=== PATIENT | male | born 1965 | race Caucasian/White ===

== ENCOUNTER → 2017-06-15 | Outpatient (CLI) | payer OTHER ==
[2017-06-15 15:44] LABS: Anion Gap 10 mmol/L; Blood Urea Nitrogen 13 mg/dL (9-20); Calcium 9.6 mg/dL (8.4-10.2); Carbon Dioxide 32 mmol/L (22-30); Chloride 96 mmol/L (98-107); Glucose 219 mg/dL (74-99); Potassium 4.5 mmol/L (3.5-5.1); Sodium 138 mmol/L (137-145)
== END | disposition home or self-care (01) ==
LOC: LABWHC1 14:34
PROVIDERS: ATTEND Anesthesiology
DX: Z01.818 Encounter for other preprocedural examination (principal); Z01.812 Encounter for preprocedural laboratory examination
CPT/HCPCS: 36415; 80048; 93005

== ENCOUNTER → 2017-06-15 | Outpatient (CLI) | payer OTHER ==
[2017-06-15 14:01] LABS: Blood Urea Nitrogen 14 mg/dL (9-20)
--- NOTE | 2017-06-15 15:06 | XR ---
EXAMINATION TYPE: XR chest 2V DATE OF EXAM: 06/15/2017 COMPARISON: 10/22/2009 INDICATION: Vocal cord lesion TECHNIQUE: Frontal and lateral views of the chest are obtained. FINDINGS: The heart size is normal. The pulmonary vasculature is normal. The lungs are clear. Some mild hyperinflation may be present. IMPRESSION: 1. No acute pulmonary process.
--- NOTE | 2017-06-15 17:11 | CT ---
EXAMINATION TYPE: CT soft tissue neck w con DATE OF EXAM: 06/15/2017 COMPARISON: NONE HISTORY: Hoarseness for [address] DLP: 1610.4 mGycm CONTRAST: Patient injected with 100 mL of Omnipaque 300. TECHNIQUE: Axial images at 3 mm thick sections. Reconstructed images in the coronal plane and sagitt al plane are reviewed. FINDINGS: Limited CT sections are obtained the lung apices. The lung apices appear clear. The asce nding thoracic aorta at the level the main pulmonary artery is 4.3 cm which is prominent. The main pu lmonary artery the bifurcation is 3.8 cm. And may be a subcarinal lymph node present measuring 1.1 cm . Consider follow-up CT chest for additional evaluation. Additional smaller superior mediastinal and paratracheal lymph nodes are present. CT neck: The torus tubarius and fossa of Rosenmuller are normal. Reservoir Engineering Advisor spaces are normal. Para nasal sinuses and mastoid air cells are clear. Parotid glands appear normal and symmetrical. Submandibular glands, are normal. Parapharyngeal spac es are normal. No suspicious adenopathy is evident. The hypopharynx appears within normal limits. Vocal cord level appears close time of the examination. Subglottic airway is unremarkable. Thyroid as visualized is normal. Degenerative changes are within the thoracic spine. IMPRESSIONS: 1. No suspicious acute changes within the soft tissue neck. 2. There is a probable enlarged lymph node at the subcarinal region as well as additional smaller lym phadenopathy. CT chest could be performed for additional evaluation. 3. Aneurysmal prominence of the ascending thoracic aorta measuring 4.3 cm.
== END | disposition home or self-care (01) ==
LOC: RADCTMAIN 13:06
PROVIDERS: ATTEND Otolaryngology
DX: Z01.818 Encounter for other preprocedural examination (principal)
CPT/HCPCS: 71046; 70491; 36415; Q9967; 80048; 93005

== ENCOUNTER → 2017-08-09 | Outpatient (CLI) | payer OTHER ==
[2017-08-09 16:18] LABS: Blood Urea Nitrogen 13 mg/dL (9-20)
--- NOTE | 2017-08-09 17:54 | CT ---
EXAMINATION TYPE: CT neck chest w con DATE OF EXAM: 08/09/2017 5:16 PM COMPARISON: Neck CT scan 06/15/2017 HISTORY: Malignant neoplasm of supraglavis CT DLP: 3227.0 mGycm Automated exposure control for dose reduction was used. CONTRAST: CT scan of the neck is performed following with IV Contrast, patient injected with 100 mL of Isovue 3 00. Axial images are obtained, coronal and sagittal reformatted images are reviewed. FINDINGS: The lungs are clear of consolidation. There is no pleural effusion. There is no pericardial effusion. There is a 13 mm subcarinal lymph node. There are paratracheal lymph nodes that measure up to 1 cm. There is no evidence of aortic aneurysm or dissection. There is spurring in the thoracic spine. I see no bony destructive process. There is significant hypertrophy of the parotid glands. I see no parotid mass. Submandibular salivary glands are symmetric. There are anterior triangle cervical lymph nodes measure up to 1 cm. Subglotti c trachea appears normal. The epiglottis appears normal. Thyroid gland is symmetric. There is no evidence of a pharyngeal mass. There is fairly normal aeration of the paranasal sinuses. There is no evidence of orbital mass. I see no pathologic enhancement. There are some calcifications in the mild bilaterally. These are in uncertain location. It is possibl e that these are calcifications in the parotid duct. The cervical spine is intact. IMPRESSION: Symmetric moderate hypertrophy of the parotid glands. Oral pharyngeal calcification coul d relate to parotid duct calcification. These appear unchanged compared to last exam. No evidence of a neck mass. Nonspecific mediastinal lymph nodes appear unchanged. No pulmonary mass.
== END | disposition home or self-care (01) ==
LOC: RADCTMAIN 15:38
PROVIDERS: ATTEND Radiology Radiation Oncology
DX: C32.1 Malignant neoplasm of supraglottis (principal); K11.1 Hypertrophy of salivary gland; J39.2 Other diseases of pharynx; Z88.0 Allergy status to penicillin
CPT/HCPCS: 82565; 84520; 70491; 71260; 36415; Q9967

== ENCOUNTER 2018-04-01 05:51 | Day surgery (SDC) | payer OTHER ==
[2018-03-27 12:54] VITALS: BMI 47.7
[~2018-04-01 05:51] MED LIST: CLINDAMYCIN 900 MG in DEXTROSE 5% IN WATER 50 ML IVPB ONE; DEXAMETHASONE SOD PHOSPHATE 10 MG/ML 1 ML VIAL IV ONE; HEPARIN SODIUM,PORCINE 5,000 UNIT/ML 1 ML VIAL SQ ONE; LACTATED RINGERS 1,000 ML IV SCH; LIDOCAINE 1% 20 ML VIAL (10MG/ML) FOR IV START INTRADERMA PRN; MIDAZOLAM 2 MG/2 ML VIAL IV PRN; ONDANSETRON 4 MG/2 ML VIAL IVP ONE; fentaNYL (PF) 50 MCG/ML 2 ML AMP IV PRN
[2018-04-01] MEDS ORDERED: INDOCYANINE GREEN 25 MG VIAL IV STA (06:00)
--- NOTE | 2018-04-01 06:40 | P.GSHP ---
History of Present Illness H&P Date: 04/01/18 CHIEF COMPLAINT: Cholecystitis HISTORY OF PRESENT ILLNESS: The patient is a 52-year-old male who presents with history of epigastric including right upper quadrant abdominal pain. He underwent diagnostic studies for the gallbladder. Separately his clinical picture was consistent with cholecystitis. Now he presents for surgical intervention. PAST MEDICAL HISTORY: Please see list PAST SURGICAL HISTORY: Please see list MEDICATIONS: Please see list ALLERGIES: Denies. SOCIAL HISTORY: No illicit drug use or recent tobacco use FAMILY HISTORY: Pertinent for gallbladder disease REVIEW OF ORGAN SYSTEMS: CONSTITUTIONAL: No reports of fevers or chills. HEENT: Denies any troubles with the vision or hearing. ENDOCRINE: Has reports of hypothyroidism. Has diabetes. RESPIRATORY: No recent pneumonias. CARDIOVASCULAR: Denies chest pain or palpitations GI: No blood in stools or constipation. MUSCULOSKELETAL: Has occasional joint pain including back pain. NEURO: No seizure disorders or headaches. No recent stroke. PSYCH: No depression or suicidal ideation. HEMATOLOGIC: No personal or family history of DVTs or pulmonary emboli. PHYSICAL EXAM: VITAL SIGNS: Afebrile vital signs stable GENERAL: Well-developed pleasant male in no acute distress. HEENT: No scleral icterus. Extraocular movements grossly intact. Moist buccal mucosa. NECK: Supple without lymphadenopathy. CHEST: Unlabored respirations. Equal bilateral excursions. CARDIOVASCULAR: Regular rate regular rhythm rhythm. Distal 2+ pulses. ABDOMEN: Soft, nondistended. Tender along the epigastrium and right upper quadrant. MUSCULOSKELETAL: No clubbing, cyanosis, or edema. NEURO : No focal or lateralizing signs. Cranial nerves II-12 within normal limits. PSYCH: Alert and oriented to person, place and time. SKIN: Well perfused. Good skin turgor. ASSESSMENT: 1. Epigastric and right upper quadrant abdominal pain 2. Chronic cholecystitis 3. Symptomatic gallstones. PLAN: 1. Will need a robotic cholecystectomy possible open. Benefits and risks were described. 2. Heparin for DVT prophylaxis 5000 units. 3. Antibiotic prophylaxis. 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 device, elevated uric acid level, hypothyroid, occasional back pain, arthritis bilateral hands/L shoulder, L/R leg lymphedema but worse in R leg, R ankle venous stasis ulcer-healed at this time, History of Any Multi-Drug Resistant Organisms: MRSA Date of last positivie culture/infection: 06/22/14 MDRO Source:: RT LEG Past Surgical History: No Surgical Hx Reported Additional Past Surgical History / Comment(s): Vocal cord bx, debridements R ankle ulcer Past Anesthesia/Blood Transfusion Reactions: No Reported Reaction Smoking Status: Former smoker - Past Family History Mother Family Medical History: No Reported History Additional Family Medical History / Comment(s): Mother is healthy and is 76yrs old. Brother(s) Additional Family Medical History / Comment(s): Patient is a total of 5 siblings and one brother from liver cirrhosis from alcoholism. Patient has one son with no major medical problems. Father Sister(s) Family Medical History: Cancer Additional Family Medical History / Comment(s): Father at 57yrs from lung cancer. He was a smoker. Medications and Allergies Home Medications Medication Instructions Recorded Confirmed Type Allopurinol [Zyloprim] 100 mg PO PC-SUPPER 09/01/13 03/27/18 History Levothyroxine Sodium [Synthroid] 25 mcg PO PC-SUPPER 09/01/13 03/27/18 History metFORMIN HCL [Glucophage] 500 mg PO PC-SUPPER 09/01/13 03/27/18 History Hydrochlorothiazide [Hydrodiuril] 25 mg PO PC-SUPPER 10/22/13 03/27/18 History amLODIPine BESYLATE/BENAZEPRIL 1 cap PO PC-SUPPER 10/22/13 03/27/18 History [Lotrel 5-10 mg Capsule] Furosemide [Lasix] 20 mg PO PC-SUPPER 03/07/18 03/27/18 History Allergies Allergy/AdvReac Type Severity Reaction Status Date / Time penicillin G Allergy Severe Anaphylaxis Verified 04/01/18 06:15
[2018-04-01 06:47] LABS: Glucose,Whole Blood 100 mg/dL (75-99)
[2018-04-01] MEDS ORDERED: DEXAMETHASONE SOD PHOSPHATE 10 MG/ML 1 ML VIAL IV ONE (07:00)
[2018-04-01] MEDS ORDERED: ONDANSETRON 4 MG/2 ML VIAL IVP ONE (07:00)
[2018-04-01 07:13] LABS: Anion Gap 8 mmol/L; Blood Urea Nitrogen 12 mg/dL (9-20); Calcium 9.2 mg/dL (8.4-10.2); Carbon Dioxide 31 mmol/L (22-30); Chloride 100 mmol/L (98-107); Glucose 92 mg/dL (74-99); Sodium 139 mmol/L (137-145); Total Protein 7.4 g/dL (6.3-8.2)
[2018-04-01 07:21] LABS: Potassium 4.8 mmol/L (3.5-5.1)
[2018-04-01 07:22] LABS: ALT 35 U/L (21-72); AST 37 U/L (17-59); Alkaline Phosphatase 58 U/L (38-126)
[2018-04-01] MEDS ORDERED: GLYCOPYRROLATE 0.2 MG/ML 2 ML VIAL ONE (07:37)
[2018-04-01] MEDS ORDERED: NEOSTIGMINE 1 MG/ML 10 ML VIAL ONE (07:37)
[2018-04-01] MEDS ORDERED: MIDAZOLAM 2 MG/2 ML VIAL ONE (07:37)
[2018-04-01] MEDS ORDERED: fentaNYL (PF) 50 MCG/ML 2 ML AMP ONE (07:37)
[2018-04-01] MEDS ORDERED: BUPIVACAIN-EPI 0.25%-1:200,000 30 ML VIAL SQ ONE ×2 (07:37→08:08)
[2018-04-01] MEDS ORDERED: PROPOFOL 10 MG/ML 20 ML VIAL IV ONE (07:37)
[2018-04-01] MEDS ORDERED: INDOCYANINE GREEN 25 MG VIAL IV ONE (07:37)
[2018-04-01] MEDS ORDERED: LIDOCAINE 1% INJ 10MG/ML (20 ML MDV) ONE (07:37)
[2018-04-01] MEDS ORDERED: ROCURONIUM BROMIDE 10 MG/ML 10 ML VIAL IV ONE (07:37)
[2018-04-01] MEDS ORDERED: SUCCINYLCHOLINE CHLORIDE 100 MG/5 ML SYR IV ONE (07:37)
[2018-04-01] MEDS ORDERED: ePHEDrine SULFATE/0.9% NACL/PF 50 MG/5 ML SYRINGE IV ONE (07:37)
[2018-04-01 09:05] VITALS: TEMP 97
--- NOTE | 2018-04-01 09:09 | P.OP ---
Date of Procedure: 04/01/18 Description of Procedure: SURGEON: RICHA AGUILAR MD PREOPERATIVE DIAGNOSES: 1. Symptomatic gallstones 2. Chronic cholecystitis 3. History of congestive heart failure 4. Diabetes type 2, with neuropathy 5. Hypothyroidism 6. Gout arthritis 7. Bilateral venous stasis disease 8. Hypertensive heart disease with cardiomyopathy 9. Hypothyroidism 10. Morbid obesity discussed calories, BMI 48 11. History of gallstone-induced pancreatitis with elevated transaminase POSTOPERATIVE DIAGNOSES: 1. Symptomatic gallstones 2. Chronic cholecystitis 3. History of congestive heart failure 4. Diabetes type 2, with neuropathy 5. Hypothyroidism 6. Gout arthritis 7. Bilateral venous stasis disease 8. Hypertensive heart disease with cardiomyopathy 9. Hypothyroidism 10. Morbid obesity discussed calories, BMI 48 11. History of gallstone-induced pancreatitis with elevated transaminase 12. Severe hepatomegaly due to fatty liver disease OPERATION: Robotic-assisted da Adis Xi laparoscopic cholecystectomy, multiport with FIREFLY ESTIMATED BLOOD LOSS: 10 mL. SPECIMENS REMOVED: Gallbladder. COMPLICATIONS: None. OPERATIVE FINDINGS: 1. Chronic cholecystitis 2. Severe hepatomegaly adding complexity to case INDICATIONS: The patient is a 52-year-old male who presents with history of gallstone-induced pancreatitis and elevated transaminase. Surgical intervention with a laparoscopic cholecystectomy was described at length including injury to the biliary tree, bleeding, infection, need for further surgery. Informed consent was obtained. Robotic assisted laparoscopic approach was described. Benefits and risks of the procedure including but not limited to bleeding, infection, injury to the biliary tree was described. Informed consent was obtained. DESCRIPTION OF PROCEDURE: Patient was brought to the operating room, placed in supine position. After general induction, the abdomen had been prepped and draped in standard sterile fashion. The robotic da Adis XI system was primed. After a timeout protocol was performed, the patient had been prepped and draped in standard sterile fashion. The patient was injected with indocyanine green. A 5 mm 0 degrees laparoscopic trocar entry was performed along the left upper quadrant. The abdomen insufflated to 15 mmHg pressure which he tolerated well. Diagnostic laparoscopy demonstrated no injury to bowel viscera or mesentery. The liver surface was remarkable for severe hepatomegaly due to fatty liver disease. Next, two 8 mm robotic ports were placed along the right upper abdomen. The camera 8-mm port was maintained along the epigastrium. Another 8 mm port was placed along the left upper abdominal wall after exchanging the 5 mm port. Please note that the ports were placed at least 10 to 15 cm away from the target anatomy of the gallbladder. The robot was docked along the left lateral abdomen. The patient was repositioned in reverse Trendelenburg position. Using a grasper for arm 3, a grasper for arm 4, including hook cautery for arm 1 , the robotic system was docked and primed as described. Instruments were interchanged by the res habilitation assistant including hook cautery, Bovie cautery and clip appliers. I had sat at the console. Adhesions were identified along the infundibulum of the gallbladder and addressed using hook cautery. The gallbladder fundus was retracted over the dome of the liver. Initial attention was brought to the infundibulum which was gently retracted in the inferior lateral approach. Using a grasper, the cystic duct including the cystic artery was carefully skeletonized. FIREFLY was used to identify the cystic artery and cystic structures. Large PLASTIC clips were used throughout the entire case. Using a clip crm campaign manager 2 clips were placed proximally, and 1 clip was placed distally along the cystic duct and then cauterized with the cautery. Again care was taken to avoid any injury to the biliary tree as the common bile duct was clearly visualized during this portion of dissection. Next, the cystic artery was similarly clipped and cauterized. Electro-Bovie cautery was used to remove the gallbladder from the hepatic fossa. Hemostasis was checked and found to be adequate. The robot was undocked. I re-scrubbed into the case. Using a 10 mm Endo Catch bag via the left upper quadrant incision, the specimen was removed from the abdominal cavity. All pneumoperitoneum instruments were evacuated from the abdominal cavity. The incisions were reapproximated using 4-0 Monocryl in an interrupted subcuticular fashion. Fascial defects were less than 8 mm in size. Please note along the trocar sites, local anesthetic was placed as a field block prior to insertion of all instruments. Liquid glue was applied to the skin. At the end of the procedure needle, sponge, and instrument count had been verified correct by the bench technician. The patient was transferred to postanesthesia care unit in stable condition. Console time 18 minutes Plan - Discharge Summary New Discharge Prescriptions: New HYDROcodone/APAP 5-325MG [[place] 5-325] 1 tab PO Q4HR PRN 3 Days #18 tab PRN Reason: Pain No Action metFORMIN HCL [Glucophage] 500 mg PO PC-SUPPER Levothyroxine Sodium [Synthroid] 25 mcg PO PC-SUPPER Allopurinol [Zyloprim] 100 mg PO PC-SUPPER amLODIPine BESYLATE/BENAZEPRIL [Lotrel 5-10 mg Capsule] 1 cap PO PC-SUPPER Hydrochlorothiazide [Hydrodiuril] 25 mg PO PC-SUPPER Furosemide [Lasix] 20 mg PO PC-SUPPER Discharge Medication List Allopurinol [Zyloprim] 100 mg PO PC-SUPPER 09/01/13 [History] Levothyroxine Sodium [Synthroid] 25 mcg PO PC-SUPPER 09/01/13 [History] metFORMIN HCL [Glucophage] 500 mg PO PC-SUPPER 09/01/13 [History] Hydrochlorothiazide [Hydrodiuril] 25 mg PO PC-SUPPER 10/22/13 [History] amLODIPine BESYLATE/BENAZEPRIL [Lotrel 5-10 mg Capsule] 1 cap PO PC-SUPPER 10/22 [History] Furosemide [Lasix] 20 mg PO PC-SUPPER 03/07/18 [History] HYDROcodone/APAP 5-325MG [[place] 5-325] 1 tab PO Q4HR PRN 3 Days #18 tab [Rx] Follow up Appointment(s)/Referral(s): Richa Aguilar MD [STAFF PHYSICIAN] - 04/09/18 Patient Instructions/Handouts: Laparoscopic Cholecystectomy (DC) Activity/Diet/Wound Care/Special Instructions: Low-fat diet for 2 days. No lifting over 4 pounds one week. May shower. No bath tub soaks. Discharge Disposition: HOME SELF-CARE
[2018-04-01 09:10] LABS: Glucose,Whole Blood 152 mg/dL (75-99)
[2018-04-01 10:08] VITALS: BP 113/61; PULSE 93; RESP 17
== END 2018-04-01 10:15 | disposition home or self-care (01) ==
LOC: OR 05:51
PROVIDERS: ATTEND Surgery Plastic and Reconstructive Surgery
DX: K80.10 Calculus of gallbladder with chronic cholecystitis without obstruction (principal); K76.0 Fatty (change of) liver, not elsewhere classified; R16.0 Hepatomegaly, not elsewhere classified; I11.0 Hypertensive heart disease with heart failure; I50.9 Heart failure, unspecified; I43 Cardiomyopathy in diseases classified elsewhere; E11.40 Type 2 diabetes mellitus with diabetic neuropathy, unspecified; E03.9 Hypothyroidism, unspecified; E66.01 Morbid (severe) obesity due to excess calories; M10.9 Gout, unspecified; Z79.84 Long term (current) use of oral hypoglycemic drugs; Z79.890 Hormone replacement therapy; Z79.899 Other long term (current) drug therapy; Z88.0 Allergy status to penicillin; Z68.42 Body mass index [BMI] 45.0-49.9, adult; Z87.891 Personal history of nicotine dependence
CPT/HCPCS: 88304; 80053; 47562; J2250; J1644; J1100; J2710; J2405; J2001; J3010; J0330; J2704

== ENCOUNTER → 2018-04-05 | Outpatient (CLI) | payer OTHER ==
--- NOTE | 2018-04-05 17:37 | CT ---
EXAMINATION TYPE: CT soft tissue neck wo/w con DATE OF EXAM: 04/05/2018 COMPARISON: 08/09/2017 HISTORY: Malignant neoplasm supraglottis CT DLP: 1547.1 mGycm CONTRAST: Patient injected with 50ml mL of Isovue M300. TECHNIQUE: Axial images at 3 mm thick sections. Reconstructed images in the coronal plane and sagitt al plane are reviewed. FINDINGS: Limited CT sections are obtained the lung apices. The lung apices appear clear. CT neck: The torus tubarius and fossa of Rosenmuller are normal. Spring Assembler Supervisor spaces are normal. Para nasal sinuses and mastoid air cells are clear. Parotid glands appear normal and symmetrical. Submandibular glands appear somewhat atrophic. Paraph aryngeal spaces are normal. No suspicious adenopathy is evident. The hypopharynx appears within normal limits. Vocal cord level appear symmetrical. Thyroid as visualized is normal. Osseous structures are normal. IMPRESSIONS: 1. Appearance of the supraglottic region appears similar to prior study. Suspicious recurrent or prog ressing mass is not identified radiographically.
--- NOTE | 2018-04-05 17:40 | CT ---
EXAMINATION TYPE: CT chest wo/w con DATE OF EXAM: 04/05/2018 COMPARISON: 08/09/2017 HISTORY: Malignant neoplasm supraglottis CT DLP: 1811.4 mGycm, Automated exposure control for dose reduction was used. CONTRAST: Performed injected with 75ml mL of Isovue M300. TECHNIQUE: Axial images were obtained at 5 mm thick sections. Reconstructed images are reviewed on [email or web address] computer in the coronal plane. FINDINGS: Portion of the thyroid visualized is normal. Vocal cord level is symmetrical. Subglottic ai rway has an increased AP diameter in relation to the lateral dimension. This is stable. Consider sabe r-sheath trachea within the differential. No suspicious lung nodules or focal infiltrates are present. Subcarinal lymph node measures 1.1 cm which is diminished from prior study. Couple of shotty lymph n odes are in the pretracheal space and lateral aortopulmonic window region. These are diminished in si ze from comparison. The ascending aorta diameter at the level of the main pulmonary artery is 4.1 cm. The main pulmonary artery diameter at the bifurcation is 3.[address] sections are obtained through the upper abdomen. Abdomen is essentially unremarkable. IMPRESSIONS: 1. No suspicious changes to suggest metastatic disease. 2. Consider saber-sheath trachea. 3. Ascending thoracic aortic aneurysm of 4.1 cm.
== END | disposition home or self-care (01) ==
LOC: RADCTMAIN 12:38
PROVIDERS: ATTEND Radiology Radiation Oncology
DX: K22.70 Barrett's esophagus without dysplasia (principal); C32.1 Malignant neoplasm of supraglottis
CPT/HCPCS: 70492; 71270; Q9967

== ENCOUNTER 2018-10-09 06:28 | Day surgery (SDC) | payer OTHER ==
[2018-10-08 09:15] VITALS: BMI 47.1
[~2018-10-09 06:28] MED LIST changes: -CLINDAMYCIN 900 MG in DEXTROSE 5% IN WATER 50 ML IVPB ONE; -DEXAMETHASONE SOD PHOSPHATE 10 MG/ML 1 ML VIAL IV ONE; -HEPARIN SODIUM,PORCINE 5,000 UNIT/ML 1 ML VIAL SQ ONE; -MIDAZOLAM 2 MG/2 ML VIAL IV PRN; -ONDANSETRON 4 MG/2 ML VIAL IVP ONE; -fentaNYL (PF) 50 MCG/ML 2 ML AMP IV PRN
[2018-10-09 07:23] VITALS: TEMP 98.3
[2018-10-09 07:26] LABS: Glucose,Whole Blood 97 mg/dL (75-99)
[2018-10-09] MEDS ORDERED: LIDOCAINE 1% INJ 10MG/ML (20 ML MDV) ONE (07:34)
[2018-10-09] MEDS ORDERED: PROPOFOL 10 MG/ML 20 ML VIAL IV ONE (07:34)
--- NOTE | 2018-10-09 07:35 | P.GSHP ---
History of Present Illness H&P Date: 10/09/18 CHIEF COMPLAINT: Colon screen HISTORY OF PRESENT ILLNESS: The patient is a 52-year-old male who presents for colon screen. Lower endoscopy was offered for further evaluation and management. PAST MEDICAL HISTORY: Please see list. PAST SURGICAL HISTORY: Please see list. MEDICATIONS: Please see list. ALLERGIES: Please see list. SOCIAL HISTORY: No illicit drug use FAMILY HISTORY: No reports of Crohn disease or ulcerative colitis. REVIEW OF ORGAN SYSTEMS: CONSTITUTIONAL: No reports of fevers or chills. PHYSICAL EXAM: VITAL SIGNS: Stable GENERAL: Well-developed pleasant in no acute distress. HEENT: No scleral icterus. Extraocular movements grossly intact. Moist buccal mucosa. NECK: Supple without lymphadenopathy. CHEST: Unlabored respirations. Equal bilateral excursions. CARDIOVASCULAR: Regular rate and rhythm. Distal 2+ pulses. ABDOMEN: Soft, nontender, nondistended. MUSCULOSKELETAL: No clubbing, cyanosis, or edema. ASSESSMENT: 1. Colon screen. PLAN: 1. Recommend proceeding with a lower endoscopy Past Medical History Past Medical History: Cancer, Diabetes Mellitus, Hypertension, Musculoskeletal Disorder, Osteoarthritis (OA), Sleep Apnea/CPAP/BIPAP, Thyroid Disorder, Vascular Disorder Additional Past Medical History / Comment(s): Vocal cord cancer dx. 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, elevated uric acid level, occasional back pain, arthritis bilateral hands/L shoulder, L/R leg lymphedema but worse in R leg History of Any Multi-Drug Resistant Organisms: MRSA Date of last positivie culture/infection: 06/22/14 MDRO Source:: RT LEG Past Surgical History: Cholecystectomy Additional Past Surgical History / Comment(s): Vocal cord bx Past Anesthesia/Blood Transfusion Reactions: No Reported Reaction Smoking Status: Former smoker - Past Family History Mother Family Medical History: No Reported History Additional Family Medical History / Comment(s): Mother is healthy and is 76yrs old. Brother(s) Additional Family Medical History / Comment(s): Patient is a total of 5 siblings and one brother from liver cirrhosis from alcoholism. Patient has one son with no major medical problems. Father Sister(s) Family Medical History: Cancer Additional Family Medical History / Comment(s): Father at 57yrs from lung cancer. He was a smoker. Medications and Allergies Home Medications Medication Instructions Recorded Confirmed Type Allopurinol [Zyloprim] 100 mg PO PC-SUPPER 09/01/13 10/09/18 History Levothyroxine Sodium [Synthroid] 25 mcg PO PC-SUPPER 09/01/13 10/09/18 History metFORMIN HCL [Glucophage] 500 mg PO PC-SUPPER 09/01/13 10/09/18 History Hydrochlorothiazide [Hydrodiuril] 25 mg PO PC-SUPPER 10/22/13 10/09/18 History amLODIPine BESYLATE/BENAZEPRIL 1 cap PO PC-SUPPER 10/22/13 10/09/18 History [Lotrel 5-10 MG] Furosemide [Lasix] 20 mg PO PC-SUPPER 03/07/18 10/09/18 History Allergies Allergy/AdvReac Type Severity Reaction Status Date / Time penicillin G Allergy Severe Anaphylaxis Verified 10/08/18 09:09 Surgical - Exam Vital Signs Temp Pulse Resp BP Pulse Ox 98.3 F 78 20 128/59 96 10/09/18 07:14 10/09/18 07:14 10/09/18 07:14 10/09/18 07:14 10/09/18 07:14
--- NOTE | 2018-10-09 07:55 | P.PCN ---
Date of Procedure: 10/09/18 Description of Procedure: PREOPERATIVE DIAGNOSIS: Colonoscopy screening, first POSTOPERATIVE DIAGNOSIS: Colonoscopy screening, first Multiple tubular adenomas throughout the colon. OPERATION: Colonoscopy to the ileocecal valve and appendiceal orifice. Colonoscopy with multiple cold forceps biopsies. SURGEON: Richa Aguilar MD. ANESTHESIA: MAC. INDICATIONS: The patient is a 52-year-old male who presents for his first colonoscopy screening. Benefits and risks were described and informed consent was obtained. DESCRIPTION OF PROCEDURE: The patient had undergone Gatorade, MiraLAX and Dulcolax prep. He had been brought into the operating room and laid in the left lateral decubitus position. After adequate intravenous sedation, the rectum was examined with 2% lidocaine jelly. No external hemorrhoids were encountered. The rectal tone was within normal limits. No lesions were palpated in the rectal vault. An Olympus colonoscope was advanced until the ileocecal valve and appendiceal orifice were clearly viewed. The prep was fair with visualization of the mucosal folds. The scope was removed with visualization of each mucosal fold. No scattered diverticulosis was encountered. Multiple colonic polyps were found and cold forcep biopsy. No evidence of focal colitis was found. Retroflexion of the scope demonstrated no internal hemorrhoids without active bleeding or inflammation. The colon was desufflated. The patient had tolerated the procedure well. Withdrawal time was over 6 minutes. FINDINGS: Aronchick preparation quality scale 2 (1-5) No internal hemorrhoids No external hemorrhoids No arteriovenous malformations No scattered diverticulosis Removal of 3 polyps: - Cold forceps biopsy at 30 cm from the anal verge, 4 mm polyp, descending colon - Cold forceps biopsy at 20 cm from the anal verge, 5 mm polyp, sigmoid colon - Cold forceps biopsy at 15 cm from the anal verge, 4 mm polyp, sigmoid colon No focal colitis. RECOMMENDATIONS: Given severity of tubular adenomas, recommend repeat colonoscopy 3 year, 2021 Plan - Discharge Summary Discharge Rx Participant: Yes New Discharge Prescriptions: No Action metFORMIN HCL [Glucophage] 500 mg PO PC-SUPPER Levothyroxine Sodium [Synthroid] 25 mcg PO PC-SUPPER Allopurinol [Zyloprim] 100 mg PO PC-SUPPER amLODIPine BESYLATE/BENAZEPRIL [Lotrel 5-10 MG] 1 cap PO PC-SUPPER Hydrochlorothiazide [Hydrodiuril] 25 mg PO PC-SUPPER Furosemide [Lasix] 20 mg PO PC-SUPPER Discharge Medication List Allopurinol [Zyloprim] 100 mg PO PC-SUPPER 09/01/13 [History] Levothyroxine Sodium [Synthroid] 25 mcg PO PC-SUPPER 09/01/13 [History] metFORMIN HCL [Glucophage] 500 mg PO PC-SUPPER 09/01/13 [History] Hydrochlorothiazide [Hydrodiuril] 25 mg PO PC-SUPPER 10/22/13 [History] amLODIPine BESYLATE/BENAZEPRIL [Lotrel 5-10 MG] 1 cap PO PC-SUPPER 10/22/13 [History] Furosemide [Lasix] 20 mg PO PC-SUPPER 03/07/18 [History] Follow up Appointment(s)/Referral(s): Richa Aguilar MD [STAFF PHYSICIAN] - 10/15/18 Patient Instructions/Handouts: Colorectal Polyps (DC) Activity/Diet/Wound Care/Special Instructions: Repeat colonoscopy in 3 years, 2021 Discharge Disposition: HOME SELF-CARE
[2018-10-09 08:00] VITALS: BP 107/71; PULSE 79; RESP 18
== END 2018-10-09 08:25 | disposition home or self-care (01) ==
LOC: ORWHC2ENDO 06:28
PROVIDERS: ATTEND Surgery Plastic and Reconstructive Surgery
DX: Z12.11 Encounter for screening for malignant neoplasm of colon (principal); K63.5 Polyp of colon; I10 Essential (primary) hypertension; E11.9 Type 2 diabetes mellitus without complications; E07.9 Disorder of thyroid, unspecified; E79.0 Hyperuricemia without signs of inflammatory arthritis and tophaceous disease; M19.042 Primary osteoarthritis, left hand; M19.041 Primary osteoarthritis, right hand; M19.012 Primary osteoarthritis, left shoulder; I89.0 Lymphedema, not elsewhere classified; G47.33 Obstructive sleep apnea (adult) (pediatric); Z79.890 Hormone replacement therapy; Z79.84 Long term (current) use of oral hypoglycemic drugs; Z79.899 Other long term (current) drug therapy; Z88.0 Allergy status to penicillin; Z90.49 Acquired absence of other specified parts of digestive tract; Z85.21 Personal history of malignant neoplasm of larynx; Z92.3 Personal history of irradiation; Z86.14 Personal history of Methicillin resistant Staphylococcus aureus infection; Z87.891 Personal history of nicotine dependence; Z80.1 Family history of malignant neoplasm of trachea, bronchus and lung; E66.01 Morbid (severe) obesity due to excess calories; Z68.42 Body mass index [BMI] 45.0-49.9, adult; M54.9 Dorsalgia, unspecified
CPT/HCPCS: 45380; 88305; J2001; J2704

== ENCOUNTER → 2018-10-25 | Outpatient (CLI) | payer OTHER ==
--- NOTE | 2018-10-25 14:15 | XR ---
EXAMINATION TYPE: XR cervical spine comp DATE OF EXAM: 10/25/2018 CLINICAL HISTORY: pain COMPARISON: NONE TECHNIQUE: Frontal, lateral, oblique, swimmers, and open mouth view of the cervical spine are obtaine d. FINDINGS: The cervical spine is visualized in its entirety from C1 thru the top of T1 level. It is s atisfactory in alignment without evidence of acute fracture or dislocation. The pre-vertebral soft t issue appears within normal limits. Disc spaces are well preserved. The C1-C2 articulation is unremar kable on the open mouth view. The oblique images are within normal limits. IMPRESSION: No acute fracture or dislocation is seen in the cervical spine.ICD 10 NO FRACTURE, INITI AL EVALUATION
== END ==
LOC: RADXRMAIN 12:32
PROVIDERS: ATTEND Family Medicine
DX: M54.2 Cervicalgia (principal)
CPT/HCPCS: 72050

== ENCOUNTER → 2020-01-26 | Outpatient (CLI) | payer BC, OTHER ==
--- NOTE | 2020-01-26 14:47 | XR ---
EXAMINATION TYPE: XR wrist complete LT DATE OF EXAM: 01/26/2020 CLINICAL HISTORY: Left wrist pain for one month. TECHNIQUE: Frontal, lateral , scaphoid, and oblique images of the left wrist are obtained. COMPARISON: None FINDINGS: There is no acute fracture/dislocation evident in the left wrist. Mild narrowing of the fi rst metacarpal. The overlying soft tissue appears unremarkable. IMPRESSION: As above.
== END | disposition home or self-care (01) ==
LOC: RADXRMAIN 14:30
PROVIDERS: ATTEND Family Medicine
DX: M89.8X3 Other specified disorders of bone, forearm (principal)

== ENCOUNTER 2020-03-06 23:13 | Inpatient (IN) | payer BC, OTHER ==
--- NOTE | 2020-03-07 | ED ---
General Adult HPI - General Chief complaint: Arrhythmia/Palpitations Stated complaint: lightheaded Time Seen by Provider: 03/06/20 23:25 Source: patient, EMS Mode of arrival: EMS Limitations: no limitations - History of Present Illness Initial comments: his patient is a 54-year-old man who presents after he began having episodes of lightheadedness and feeling like he was about to pass out. The patient states that he was at work tonight. He states he was walking around his place of employment and then he started having episodes where he felt like he may pass out. When these Happening EMS was called and brought him here for evaluation. He is denying other symptoms, including no chest pain, dyspnea, diaphoresis, nausea or vomiting. No injury. No neurologic symptoms. Onset/Timin -: hour(s) - Related Data Home Medications Medication Instructions Recorded Confirmed Levothyroxine Sodium [Synthroid] 25 mcg PO DAILY 09/01/13 03/07/20 allopurinoL [Zyloprim] 100 mg PO DAILY 09/01/13 03/07/20 metFORMIN HCL [Glucophage] 500 mg PO DAILY 09/01/13 03/07/20 amLODIPine BESYLATE/BENAZEPRIL 1 cap PO DAILY 10/22/13 03/07/20 [Lotrel 5-10 MG] Furosemide [Lasix] 20 mg PO DAILY 03/07/18 03/07/20 Ibuprofen [Motrin] 600 mg PO TID PRN 03/07/20 03/07/20 Multivit-Min/FA/Lycopen/Lutein 1 tab PO DAILY 03/07/20 03/07/20 [Centrum Silver Men Tablet] Previous Rx's Medication Instructions Recorded Aspirin EC [Ecotrin Low Dose] 81 mg PO DAILY #30 tablet. 03/10/20 clindamycin HCL [Cleocin] 300 mg PO Q8H #9 cap 03/10/20 Allergies Allergy/AdvReac Type Severity Reaction Status Date / Time penicillin G Allergy Severe Anaphylaxis Verified 03/07/20 08:23 Review of Systems ROS Statement: Those systems with pertinent positive or pertinent negative responses have been documented in the HPI. ROS Other: All systems not noted in ROS Statement are negative. Constitutional: Denies: fever, chills, weakness Eyes: Denies: vision change Respiratory: Denies: cough, dyspnea Cardiovascular: Reports: syncope (near syncope). Denies: chest pain, palpitations, orthopnea, edema Gastrointestinal: Denies: abdominal pain, nausea, vomiting, melena, hematochezia Genitourinary: Denies: dysuria, hematuria Musculoskeletal: Denies: back pain Skin: Denies: rash Neurological: Denies: headache, weakness, numbness Past Medical History Past Medical History: Cancer, Diabetes Mellitus, Hypertension, Musculoskeletal Disorder, Osteoarthritis (OA), Sleep Apnea/CPAP/BIPAP, Thyroid Disorder, Vascular Disorder Additional Past Medical History / Comment(s): Vocal cord cancer dx. 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, elevated uric acid level, occasional back pain, arthritis bilateral hands/L shoulder, L/R leg lymphedema but worse in R leg History of Any Multi-Drug Resistant Organisms: MRSA Date of last positivie culture/infection: 06/22/14 MDRO Source:: RT LEG Past Surgical History: Cholecystectomy Additional Past Surgical History / Comment(s): Vocal cord bx Past Anesthesia/Blood Transfusion Reactions: No Reported Reaction Past Psychological History: No Psychological Hx Reported Smoking Status: Former smoker Past Alcohol Use History: None Reported, Occasional Past Drug Use History: None Reported - Past Family History Mother Family Medical History: No Reported History Additional Family Medical History / Comment(s): Mother is healthy and is 76yrs old. Brother(s) Additional Family Medical History / Comment(s): Patient is a total of 5 siblings and one brother from liver cirrhosis from alcoholism. Patient has one son with no major medical problems. Father Sister(s) Family Medical History: Cancer Additional Family Medical History / Comment(s): Father at 57yrs from lung cancer. He was a smoker. General Exam Limitations: no limitations General appearance: alert, in no apparent distress Head exam: Present: atraumatic, normocephalic Eye exam: Present: normal appearance. Absent: scleral icterus, conjunctival injection ENT exam: Present: normal oropharynx Neck exam: Present: normal inspection Respiratory exam: Present: normal lung sounds bilaterally. Absent: respiratory distress, wheezes, rales, rhonchi, stridor Cardiovascular Exam: Present: regular rate, normal rhythm, normal heart sounds. Absent: systolic murmur, diastolic murmur, rubs, gallop GI/Abdominal exam: Present: soft. Absent: distended, tenderness, guarding, rebound, rigid, mass Extremities exam: Present: normal inspection, normal capillary refill. Absent: pedal edema, calf tenderness Back exam: Present: normal inspection. Absent: CVA tenderness (R), CVA tenderness (L) Neurological exam: Present: alert Skin exam: Present: warm, dry, intact, normal color. Absent: rash Course Vital Signs 03/06/20 03/06/20 03/07/20 23:14 23:22 00:26 Temperature 98.6 F Pulse Rate 54 L 82 Pulse Rate [ 60 Bilateral Radial] Respiratory 16 18 Rate Blood Pressure 148/88 140/73 O2 Sat by Pulse 98 94 L Oximetry 03/07/20 03/07/20 00:31 01:40 Temperature Pulse Rate 86 86 Pulse Rate [ Bilateral Radial] Respiratory 18 18 Rate Blood Pressure 122/72 128/76 O2 Sat by Pulse 95 99 Oximetry EKG Findings - EKG Comments: EKG Findings:: possible old anterior infarct. - EKG Results: EKG: interpreted by MAE, sinus rhythm (Rate 82 bpm), normal axis, normal ST/T Medical Decision Making - Medical Decision Making patient is 54-year-old man brought by family is to be evaluated for episodes of lightheadedness. While in the emergency department he had some periods of AV block of variable duration. They are not regular consistent with a type II. He did have syncopal episode once in the department, and in response is given dose of atropine which seems to have resolved the episodes. the patient is on external pacer but does not appear to be needing pacing at the moment. The case has been discussed with cardiologyand they will see the patient. - Lab Data Result diagrams: 03/09/20 06:19 03/09/20 06:19 Lab Results 03/06/20 03/06/20 03/06/20 Range/Units 23:55 23:55 23:55 WBC 6.1 (3.8-10.6) k/uL RBC 5.33 (4.30-5.90) m/uL Hgb 16.6 (13.0-17.5) gm/dL Hct 49.0 (39.0-53.0) % MCV 91.8 (80.0-100.0) fL MCH 31.2 (25.0-35.0) pg MCHC 33.9 (31.0-37.0) g/dL RDW 12.9 (11.5-15.5) % Plt Count 199 (150-450) k/uL Neutrophils % 69 % Lymphocytes % 17 % Monocytes % 9 % Eosinophils % 2 % Basophils % 2 % Neutrophils # 4.2 (1.3-7.7) k/uL Lymphocytes # 1.0 (1.0-4.8) k/uL Monocytes # 0.5 (0-1.0) k/uL Eosinophils # 0.1 (0-0.7) k/uL Basophils # 0.1 (0-0.2) k/uL PT 10.3 (9.0-12.0) sec INR 1.0 (<1.2) APTT 24.1 (22.0-30.0) sec Sodium 134 L (137-145) mmol/L Potassium 4.2 (3.5-5.1) mmol/L Chloride 100 (98-107) mmol/L Carbon Dioxide 26 (22-30) mmol/L Anion Gap 8 mmol/L BUN 15 (9-20) mg/dL Creatinine 0.71 (0.66-1.25) mg/dL Est GFR (CKD-EPI)AfAm >90 (>60 ml/min/1.73 sqM) Est GFR (CKD-EPI)NonAf >90 (>60 ml/min/1.73 sqM) Glucose 120 H (74-99) mg/dL Calcium 9.8 (8.4-10.2) mg/dL Magnesium 1.7 (1.6-2.3) mg/dL Total Bilirubin 1.0 (0.2-1.3) mg/dL AST 43 (17-59) U/L ALT 25 (4-49) U/L Alkaline Phosphatase 50 (38-126) U/L Troponin I (0.000-0.034) ng/mL Total Protein 7.4 (6.3-8.2) g/dL Albumin 4.4 (3.5-5.0) g/dL TSH 11.300 H (0.465-4.680) mIU/L 03/06/20 Range/Units 23:55 WBC (3.8-10.6) k/uL RBC (4.30-5.90) m/uL Hgb (13.0-17.5) gm/dL Hct (39.0-53.0) % MCV (80.0-100.0) fL MCH (25.0-35.0) pg MCHC (31.0-37.0) g/dL RDW (11.5-15.5) % Plt Count (150-450) k/uL Neutrophils % % Lymphocytes % % Monocytes % % Eosinophils % % Basophils % % Neutrophils # (1.3-7.7) k/uL Lymphocytes # (1.0-4.8) k/uL Monocytes # (0-1.0) k/uL Eosinophils # (0-0.7) k/uL Basophils # (0-0.2) k/uL PT (9.0-12.0) sec INR (<1.2) APTT (22.0-30.0) sec Sodium (137-145) mmol/L Potassium (3.5-5.1) mmol/L Chloride (98-107) mmol/L Carbon Dioxide (22-30) mmol/L Anion Gap mmol/L BUN (9-20) mg/dL Creatinine (0.66-1.25) mg/dL Est GFR (CKD-EPI)AfAm (>60 ml/min/1.73 sqM) Est GFR (CKD-EPI)NonAf (>60 ml/min/1.73 sqM) Glucose (74-99) mg/dL Calcium (8.4-10.2) mg/dL Magnesium (1.6-2.3) mg/dL Total Bilirubin (0.2-1.3) mg/dL AST (17-59) U/L ALT (4-49) U/L Alkaline Phosphatase (38-126) U/L Troponin I <0.012 (0.000-0.034) ng/mL Total Protein (6.3-8.2) g/dL Albumin (3.5-5.0) g/dL TSH (0.465-4.680) mIU/L Critical Care Time Critical Care Time: Yes (35 minutes) Disposition Clinical Impression: Syncope, AV block Disposition: ADMITTED IP TO THIS [facility] Condition: Good
--- NOTE | 2020-03-07 00:06 | XR ---
EXAMINATION TYPE: XR chest 1V portable DATE OF EXAM: 03/06/2020 COMPARISON: 06/15/2017 HISTORY: Dysrhythmia TECHNIQUE: FINDINGS: There is no heart failure nor confluent pneumonic infiltrate. Costophrenic angles are clear . Heart size is normal. There are no hilar masses. The bony thorax is intact. IMPRESSION: No active cardiopulmonary disease. No change.
[2020-03-07] MEDS: ATROPINE SULFATE 0.1 MG/ML 10ML SYRINGE IV STA ×2 (00:25→18:42)
[2020-03-07 00:30] LABS: Basophils # (A) 0.1 k/uL (0-0.2); Basophils % (A) 2 %; Eosinophils # (A) 0.1 k/uL (0-0.7); Eosinophils % (A) 2 %; HGB 16.6 gm/dL (13.0-17.5); Lymphocytes % (A) 17 %; MCH 31.2 pg (25.0-35.0); MCHC 33.9 g/dL (31.0-37.0); MCV 91.8 fL (80.0-100.0); Mean Platelet Volume 8.4; Monocytes # (A) 0.5 k/uL (0-1.0); Monocytes % (A) 9 %; Neutrophils # (A) 4.2 k/uL (1.3-7.7); Neutrophils % (A) 69 %; Platelet Count 199 k/uL (150-450); RBC 5.33 m/uL (4.30-5.90); RDW 12.9 % (11.5-15.5); WBC 6.1 k/uL (3.8-10.6)
[2020-03-07 00:31] LABS: ALT 25 U/L (4-49); AST 43 U/L (17-59); African American GFR (CKD) >90 (>60 ml/min/1.73 sqM); Albumin 4.4 g/dL (3.5-5.0); Alkaline Phosphatase 50 U/L (38-126); Anion Gap 8 mmol/L; Blood Urea Nitrogen 15 mg/dL (9-20); Calcium 9.8 mg/dL (8.4-10.2); Carbon Dioxide 26 mmol/L (22-30); Chloride 100 mmol/L (98-107); Glucose 120 mg/dL (74-99); Magnesium 1.7 mg/dL (1.6-2.3); Non-African American GFR(CKD) >90 (>60 ml/min/1.73 sqM); Potassium 4.2 mmol/L (3.5-5.1); Sodium 134 mmol/L (137-145); Total Protein 7.4 g/dL (6.3-8.2)
[2020-03-07 00:33] LABS: Partial Thromboplastin Time 24.1 sec (22.0-30.0); Prothrombin Time 10.3 sec (9.0-12.0)
[2020-03-07] MEDS ORDERED: MAGNESIUM SULFATE-D5W PMX 1 GM in DEXTROSE/WATER 1 100ML.BAG IVPB ONE (01:01)
[2020-03-07] MEDS ORDERED: NITROGLYCERIN SL TABS 0.4 MG TAB SUBLINGUAL PRN (01:42)
[2020-03-07] MEDS: SODIUM CHLORIDE 0.9% 1,000 ML IV SCH ×2 (02:11→19:03)
[2020-03-07 05:51] LABS: Basophils # (A) 0.1 k/uL (0-0.2); Basophils % (A) 1 %; Eosinophils # (A) 0.1 k/uL (0-0.7); Eosinophils % (A) 1 %; HGB 16.1 gm/dL (13.0-17.5); Lymphocytes # (A) 0.7 k/uL (1.0-4.8); Lymphocytes % (A) 8 %; MCH 31.3 pg (25.0-35.0); MCHC 33.4 g/dL (31.0-37.0); MCV 93.5 fL (80.0-100.0); Mean Platelet Volume 8.1; Monocytes # (A) 0.3 k/uL (0-1.0); Monocytes % (A) 4 %; Neutrophils # (A) 6.9 k/uL (1.3-7.7); Neutrophils % (A) 84 %; Platelet Count 195 k/uL (150-450); RBC 5.14 m/uL (4.30-5.90); RDW 12.9 % (11.5-15.5); WBC 8.1 k/uL (3.8-10.6)
[2020-03-07 05:56] LABS: African American GFR (CKD) >90 (>60 ml/min/1.73 sqM); Anion Gap 5 mmol/L; Blood Urea Nitrogen 13 mg/dL (9-20); Calcium 9.2 mg/dL (8.4-10.2); Carbon Dioxide 28 mmol/L (22-30); Chloride 101 mmol/L (98-107); Glucose 126 mg/dL (74-99); Non-African American GFR(CKD) >90 (>60 ml/min/1.73 sqM); Potassium 3.9 mmol/L (3.5-5.1); Sodium 134 mmol/L (137-145)
[2020-03-07 06:10] LABS: Glucose,Whole Blood 117 mg/dL (75-99)
[2020-03-07] MEDS ORDERED: allopurinoL 100 MG TAB PO SCH ×2 (09:00→18:30)
--- NOTE | 2020-03-07 09:09 | P.CRDCN ---
History of Present Illness Consult date: 03/07/20 Reason for Consult (text): AV block History of present illness: History of present illness: This is a 58-year-old male patient with past medical history of diabetes mellitus type 2, hypertension, gout, vocal cord cancer status post r adiation treatment, he'll chronic wound to the right lower extremity followed by Dr. Farfan. Patient states he was walking around at work, he works in a longterm and he developed sensation of feeling like he was going to pass out and was lightheadedness. He denies having any chest pain, fever or chills, no shortness of breath, no palpitations. While in the emergency room. He continued to have episodes that were repeating every couple minutes and he does not recall syncopal episode in the ER. Since he received atropine, his symptoms have resolved. He has no family history of coronary artery disease. Patient is a smoker of 2 packs per day for 30 years and quit 3 years ago. No alcohol use at this time but history of heavy alcohol abuse and quit 10 years ago. No illicit drug use. He was afebrile, initial heart rate 54, blood pressure 148/88, pulse ox 98%. EKG sinus rhythm with significant AV block at which time he had a syncopal episode and was given atropine that seemed to resolve episode. External pacemaker was applied the patient did not require pacing. CBC was normal. Sodium 134, creatinine 0.71, potassium 4.2. Blood sugar 120. TSH 11.3 with free T4 0.83. Troponin negative 3. Magnesium 1.7 and was replaced with 1 g. Review Of Systems: At the time of my evaluation Constitutional: No fever, no chills. No weakness, fatigue or lethargy. EENT: No headache. No dizziness. Lungs: No shortness of breath, cough, no sputum production. No wheezing. Cardiovascular: No chest pain, no lower extremity edema. No palpitations. No paroxysmal nocturnal dyspnea. No orthopnea. No lightheadedness or dizziness. No syncopal episodes. Abdominal: No abdominal pain. No nausea, vomiting. No diarrhea. No constipation. Musculoskeletal: No myalgias. No muscle weakness, no gait dysfunction, no frequent falls. No back pain. No neck pain. Integumentary: No wounds, no lesions. No rash or pruritus. Neurologic: No aphasia. No facial droop. No change in mentation. No head injury. No headache. Physical examination: Gen: This is a morbidly obese 54-year-old male. He is resting but appears to be comfortable and in no acute distress. VS: Afebrile, heart rate 87, blood pressure 128/69, pulse ox 98% on room air. HEENT: Head is atraumatic, normocephalic. Pupils equal, round. Sclerae is anicteric. NECK: Supple. No JVD. No lymphadenopathy. No thyromegaly. LUNGS: Clear to auscultation. No wheezes or rhonchi. No intercostal retractions. HEART: Regular rate and rhythm. No murmur. ABDOMEN: Soft. Bowel sounds are present. No masses. No tenderness. EXTREMITIES: No pedal edema. No calf tenderness. Dorsalis pedis palpable bilaterally. NEUROLOGICAL: Patient is awake, alert and oriented x3. Cranial nerves 2 through 12 are grossly intact. Assessment: AV block with syncope Acute coronary syndrome ruled out Diabetes mellitus type 2 Hypertension History of vocal cord cancer Morbid obesity Plan: Discussed pacemaker implantation with the patient at this time, patient is undecided if he wants to go through with the procedure. More information to be provided to him by his nurse and patient will discuss with his family members. Patient is agreeable for stress test which will be ordered for tomorrow Obtain consult with Dr. Farfan to ensure no sign of infection in the right lower extremity in case patient chooses to go for pacemaker implantation Obtain 2-D echocardiogram and Doppler study to assess cardiac structure and function Further recommendations to follow based upon clinical course Thank you kindly for this consultation. Nurse practitioner note has been reviewed, I agree with documented findings and plan of care. Patient was seen and examined. Past Medical History Past Medical History: Cancer, Diabetes Mellitus, Hypertension, Musculoskeletal Disorder, Osteoarthritis (OA), Sleep Apnea/CPAP/BIPAP, Thyroid Disorder, Vascular Disorder Additional Past Medical History / Comment(s): Vocal cord cancer dx. 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 pt works. He drives. Smoking Status: Former smoker Past Alcohol Use History: None Reported, Occasional Additional Past Alcohol Use History / Comment(s): quit smoking 2016, smoked 2-3 ppd for greater than 20 years, past history of heavy alcohol use, beer with 24 pack or more per day. Patient quit alcohol intake 5 years ago. Past Drug Use History: None Reported Additional Drug Use History / Comment(s): uses cannabis oil occasionally - Past Family History Mother Family Medical History: No Reported History Additional Family Medical History / Comment(s): Mother is healthy and is 76yrs old. Brother(s) Additional Family Medical History / Comment(s): Patient is a total of 5 siblings and one brother from liver cirrhosis from alcoholism. Patient has one son with no major medical problems. Father Sister(s) Family Medical History: Cancer Additional Family Medical History / Comment(s): Father at 57yrs from lung cancer. He was a smoker. Medications and Allergies Home Medications Medication Instructions Recorded Confirmed Type Levothyroxine Sodium [Synthroid] 25 mcg PO DAILY 09/01/13 03/07/20 History allopurinoL [Zyloprim] 100 mg PO DAILY 09/01/13 03/07/20 History metFORMIN HCL [Glucophage] 500 mg PO DAILY 09/01/13 03/07/20 History amLODIPine BESYLATE/BENAZEPRIL 1 cap PO DAILY 10/22/13 03/07/20 History [Lotrel 5-10 MG] hydroCHLOROthiazide [Hydrodiuril] 25 mg PO DAILY 10/22/13 03/07/20 History Furosemide [Lasix] 20 mg PO DAILY 03/07/18 03/07/20 History Ibuprofen [Motrin] 600 mg PO TID PRN 03/07/20 03/07/20 History Multivit-Min/FA/Lycopen/Lutein 1 tab PO DAILY 03/07/20 03/07/20 History [Centrum Silver Men Tablet] Allergies Allergy/AdvReac Type Severity Reaction Status Date / Time penicillin G Allergy Severe Anaphylaxis Verified 03/07/20 08:23 Physical Exam Vitals: Vital Signs Temp Pulse Pulse Pulse Resp BP BP 03/07/20 05:30 80 03/07/20 04:00 98.2 F 87 18 128/69 03/07/20 02:51 03/07/20 01:40 86 18 128/76 03/07/20 00:31 86 18 122/72 03/07/20 00:26 82 18 140/73 03/06/20 23:22 60 03/06/20 23:14 98.6 F 54 L 16 148/88 Pulse Ox 03/07/20 05:30 03/07/20 04:00 98 03/07/20 02:51 98 03/07/20 01:40 99 03/07/20 00:31 95 03/07/20 00:26 94 L 03/06/20 23:22 03/06/20 23:14 98 Intake and Output 03/06/20 03/07/20 03/07/20 22:59 06:59 14:59 Other: Voiding Method Toilet # Voids 2 Weight 142 kg Results 03/07/20 05:35 03/07/20 05:35 Cardiac Enzymes 03/06/20 03/06/20 03/07/20 Range/Units 23:55 23:55 02:48 AST 43 (17-59) U/L Troponin I <0.012 <0.012 (0.000-0.034) ng/mL 03/07/20 Range/Units 05:35 AST (17-59) U/L Troponin I <0.012 (0.000-0.034) ng/mL Coagulation 03/06/20 Range/Units 23:55 PT 10.3 (9.0-12.0) sec APTT 24.1 (22.0-30.0) sec CBC 03/06/20 03/07/20 Range/Units 23:55 05:35 WBC 6.1 8.1 (3.8-10.6) k/uL RBC 5.33 5.14 (4.30-5.90) m/uL Hgb 16.6 16.1 (13.0-17.5) gm/dL Hct 49.0 48.0 (39.0-53.0) % Plt Count 199 195 (150-450) k/uL Comprehensive Metabolic Panel 03/06/20 03/07/20 Range/Units 23:55 05:35 Sodium 134 L 134 L (137-145) mmol/L Potassium 4.2 3.9 (3.5-5.1) mmol/L Chloride 100 101 (98-107) mmol/L Carbon Dioxide 26 28 (22-30) mmol/L BUN 15 13 (9-20) mg/dL Creatinine 0.71 0.63 L (0.66-1.25) mg/dL Glucose 120 H 126 H (74-99) mg/dL Calcium 9.8 9.2 (8.4-10.2) mg/dL AST 43 (17-59) U/L ALT 25 (4-49) U/L Alkaline Phosphatase 50 (38-126) U/L Total Protein 7.4 (6.3-8.2) g/dL Albumin 4.4 (3.5-5.0) g/dL Current Medications Generic Name Dose Route Start Last Admin Trade Name Freq PRN Reason Stop Dose Admin Allopurinol 100 mg 03/07/20 18:30 Allopurinol 100 Mg Tab PO PC-SUPPER CLAUDIA Amlodipine Besylate 5 mg 03/07/20 18:30 Amlodipine 5 Mg Tab PO PC-SUPPER CLAUDIA Aspirin 325 mg 03/08/20 09:00 Aspirin 325 Mg Tab PO DAILY CLAUDIA Sodium Chloride 1,000 mls @ 75 mls/hr 03/07/20 01:45 03/07/20 02:11 Saline 0.9% IV 75 mls/hr .[id number] CLAUDIA Administration Levothyroxine Sodium 25 mcg 03/07/20 18:30 Levothyroxine 25 Mcg Tab PO PC-SUPPER CLAUDIA Lisinopril 10 mg 03/07/20 18:30 Lisinopril 10 Mg Tab PO PC-SUPPER CLAUDIA Metformin HCl 500 mg 03/07/20 18:30 Metformin 500 Mg Tab PO PC-SUPPER CLAUDIA Nitroglycerin 0.4 mg 03/07/20 01:42 Nitroglycerin Sl Tabs 0.4 Mg Tab SUBLINGUAL Q5M PRN Chest Pain Intake and Output 03/06/20 03/07/20 03/07/20 22:59 06:59 14:59 Other: Voiding Method Toilet # Voids 2 Weight 142 kg 03/07/20 05:35 03/07/20 05:35
[2020-03-07] MEDS ORDERED: amLODIPine 5 MG TAB PO SCH ×2 (09:15→18:30)
[2020-03-07] MEDS ORDERED: lisinopriL 10 MG TAB PO SCH ×2 (09:15→18:30)
[2020-03-07] MEDS ORDERED: CAFFEINE CITRATE 60 MG/3 ML VIAL IV PRN (09:36)
[2020-03-07] MEDS ORDERED: AMINOPHYLLINE 500 MG/20 ML VIAL IV PRN (09:36)
[2020-03-07] MEDS ORDERED: REGADENOSON 0.4 MG/5 ML SYRINGE IV ONE (09:36)
[2020-03-07 11:57] LABS: Glucose,Whole Blood 103 mg/dL (75-99)
--- NOTE | 2020-03-07 12:14 | P.HPIM ---
History of Present Illness H&P Date: 03/07/20 Chief Complaint: Presyncope, heart block, severe bradycardia, possible sleep apnea, type 2 d 53 year-old morbidly obese male one of Dr. Noonan patient with past medical history of type 2 diabetes, hypertension, hyperlipidemia and history of throat cancer post radiation therapy still have mild hoarseness who is also suffer from chronic right lower extremity cellulitis has seen Dr. Farfan and wound center on regular basis. 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 fib or a flutter in between. Cardiology were notified and patient was giving 1 dose of atropine which was able to reverse this completely while he is having symptom he felt lightheaded and dizzy like symptom but no chest pain or significant shortness of breath. Review of Systems CONSTITUTIONAL: Well-developed no acute respiratory distress. Morbid obesity EYES: No icterus sclerae, no conjunctivitis. EARS, NOSE, MOUTH, THROAT, and FACE: No sore throat, lymphadenopathy, carotid bruits or deformity. RESPIRATORY: No SOB cough or wheezes. CARDIOVASCULAR: No CP, Palpitation, PND, Orthopnea, or angina. Positive palpitation GASTROINTESTINAL: No Abd pain, Nausea or vomiting, no Diarrhea or constipation, No GI Bleed, no distention or masses. GENITOURINARY: Negative for Hematuria or UTI, no kidney stones. INTEGUMENT/BREAST: Negative for any muscular injury with mild osteoarthritis.. HEMATOLOGIC/LYMPHATIC: Negative for bleed or purpura. MUSCULOSKELTAL: Negative for Myalgia or arthralgia. NEURLOGICAL: No LOC, Sz or syncope, blurred vision positive lightheadedness and dizziness BEHAVIORAL/PSYCH: Negative. ENDOCRINE: Negative. Social history: Patient with smoking 3 years ago he smoked one pack a day for over 30 years no oncology abuse and illicit drug use to work in a [place] [facility] [place] is single. Family history: Patient has 1 son who is living and well 3 sisters with no major medical problem his father from lung cancer at age 57 mother is living at 77 with no major medical problem. Past Medical History Past Medical History: Cancer, Diabetes Mellitus, Hypertension, Musculoskeletal Disorder, Osteoarthritis (OA), Sleep Apnea/CPAP/BIPAP, Thyroid Disorder, Vascular Disorder Additional Past Medical History / Comment(s): Vocal cord cancer dx. 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 pt works. He drives. Smoking Status: Former smoker Past Alcohol Use History: None Reported, Occasional Additional Past Alcohol Use History / Comment(s): quit smoking 2016, smoked 2-3 ppd for greater than 20 years, past history of heavy alcohol use, beer with 24 pack or more per day. Patient quit alcohol intake 5 years ago. Past Drug Use History: None Reported Additional Drug Use History / Comment(s): uses cannabis oil occasionally - Past Family History Mother Family Medical History: No Reported History Additional Family Medical History / Comment(s): Mother is healthy and is 76yrs old. Brother(s) Additional Family Medical History / Comment(s): Patient is a total of 5 siblings and one brother from liver cirrhosis from alcoholism. Patient has one son with no major medical problems. Father Sister(s) Family Medical History: Cancer Additional Family Medical History / Comment(s): Father at 57yrs from lung cancer. He was a smoker. Medications and Allergies Home Medications Medication Instructions Recorded Confirmed Type Levothyroxine Sodium [Synthroid] 25 mcg PO DAILY 09/01/13 03/07/20 History allopurinoL [Zyloprim] 100 mg PO DAILY 09/01/13 03/07/20 History metFORMIN HCL [Glucophage] 500 mg PO DAILY 09/01/13 03/07/20 History amLODIPine BESYLATE/BENAZEPRIL 1 cap PO DAILY 10/22/13 03/07/20 History [Lotrel 5-10 MG] hydroCHLOROthiazide [Hydrodiuril] 25 mg PO DAILY 10/22/13 03/07/20 History Furosemide [Lasix] 20 mg PO DAILY 03/07/18 03/07/20 History Ibuprofen [Motrin] 600 mg PO TID PRN 03/07/20 03/07/20 History Multivit-Min/FA/Lycopen/Lutein 1 tab PO DAILY 03/07/20 03/07/20 History [Centrum Silver Men Tablet] Allergies Allergy/AdvReac Type Severity Reaction Status Date / Time penicillin G Allergy Severe Anaphylaxis Verified 03/07/20 08:23 Physical Exam Vitals: Vital Signs Temp Pulse Pulse Pulse Resp BP BP 03/07/20 04:00 98.2 F 87 18 128/69 03/07/20 02:51 03/07/20 01:40 86 18 128/76 03/07/20 00:31 86 18 122/72 03/07/20 00:26 82 18 140/73 03/06/20 23:22 60 03/06/20 23:14 98.6 F 54 L 16 148/88 Pulse Ox 03/07/20 04:00 98 03/07/20 02:51 98 03/07/20 01:40 99 03/07/20 00:31 95 03/07/20 00:26 94 L 03/06/20 23:22 03/06/20 23:14 98 Intake and Output 03/06/20 03/06/20 03/07/20 14:59 22:59 06:59 Other: Voiding Method Toilet Weight 142 kg General Appearance: Alert, cooperative, no distress, appears stated age. Morbidly obese Neck HEENT: Supple, no lymphadenopathy, no thyroid enlargement, no carotid bruits. Lungs: Clear to auscultation without crackles or wheezes no rhonchi, no deformity. Chest Wall: Chest wall normal expansion with deep inspiration no tenderness and no deformity was found on exam, no costochondral pain or discomfort. Heart: Regular rate and rhythm, S1, S2 normal, no murmur, rub or gallop. Back: Symmetric, no curvature, ROM normal, no CVA tenderness. Abdomen: Soft, non-tender, bowel sounds active all four quadrants, no masses, no organomegaly. Extremities: Extremities normal, atraumatic, no cyanosis or edema. Significant change in color of the lower extremity from the knee down with decreased pulses dorsalis pedis and posterior tibial. Pulses: 2+ and symmetric. Skin: Skin color, texture, tugor normal, no rashes or lesions. Neurologic: Alert oriented x3 cranial nerves II through XII intact, no motor deficit, no abnormal balance or gait. Results CBC & Chem 7: 03/07/20 05:35 03/07/20 05:35 Labs: Abnormal Lab Results - Last 24 Hours (Table) 03/06/20 03/07/20 03/07/20 Range/Units 23:55 05:35 05:35 Lymphocytes # 0.7 L (1.0-4.8) k/uL Sodium 134 L 134 L (137-145) mmol/L Creatinine 0.63 L (0.66-1.25) mg/dL Glucose 120 H 126 H (74-99) mg/dL POC Glucose (mg/dL) (75-99) mg/dL TSH 11.300 H (0.465-4.680) mIU/L 03/07/20 Range/Units 06:08 Lymphocytes # (1.0-4.8) k/uL Sodium (137-145) mmol/L Creatinine (0.66-1.25) mg/dL Glucose (74-99) mg/dL POC Glucose (mg/dL) 117 H (75-99) mg/dL TSH (0.465-4.680) mIU/L Thrombosis Risk Factor Assmnt - DVT/VTE Prophylaxis DVT/VTE Prophylaxis: Pharmacologic Prophylaxis ordered, Mechanical Prophylaxis ordered - Choose All That Apply Any of the Below Risk Factors Present?: Yes Each Factor Represents 1 point: Age 41-60 years, Obesity (BMI >25), Swollen legs (current) Thrombosis Risk Factor Assessment Total Risk Factor Score: 3 Thrombosis Risk Factor Assessment Level: Moderate Risk Assessment and Plan Assessment: 1 syncope: Secondary to AV block not a clear etiology patient be hospitalized continue school lunch monitor, cardiology consultation might need to see electrophysiology in the meanwhile CK with troponin 3 be done we'll check the heart function and see if there is any significant drop in ejection fraction patient eventually will need further cardiac workup including stress test or heart cath. 2 AV block: Not a clear etiology and no symptoms before not quite sure whether this is sign of coronary artery disease or just an electrical phenomenon from electrophysiology problem, patient apparently had refused idea of going for pacemaker currently despite knowing he cannot drive and he still need further workup he might sign himself out of the hospital AGAINST MEDICAL ADVICE which I highly recommend him not to till at least were done with testing including stress and echo if those are completely negative patient will be seen by electrophysiology for possible need for further study before going for wrap pacemaker if he was agreeable to it. 3 most likely obstructive sleep apnea: Patient never been tested highly suspected according to him which highly encourage patient to talk to his primary care physician and try to planet DOTTIE. 4 type 2 diabetes: Continue patient on Accu-Chek with sliding scales coverage patient will be resume metformin at this point. 5 hypertension: Remain on Lotrel 5/10 mg daily continue medication continue hydrochlorothiazide. 6 chronic edema and lymphedema patient still been treated for chronic cellulitis of the right leg has David wrap and KEELY hose on it along with seen Dr. Farfan regular basis. 7 hypothyroidism: Continue patient on levothyroxine 25 g daily. 8 history of gout: Has been on allopurinol 100 mg daily continue medication. 9 hyperglycemia: Continue Accu-Chek sliding scale coverage. 10 GI prophylaxis: Patient be on Pepcid 20 mg daily. 11 DVT prophylaxis: Patient be on heparin subcutaneous. CODE STATUS: Full code. Admit patient to inpatient status for more than 2 nights.
[2020-03-07] MEDS: metFORMIN 500 MG TAB PO SCH (12:25)
[2020-03-07] MEDS: allopurinoL 100 MG TAB PO SCH (12:25)
[2020-03-07 17:14] LABS: Glucose,Whole Blood 105 mg/dL (75-99)
[2020-03-07] MEDS: amLODIPine 5 MG TAB PO SCH (18:26)
[2020-03-07] MEDS: lisinopriL 10 MG TAB PO SCH (18:26)
[2020-03-07] MEDS ORDERED: LEVOTHYROXINE 25 MCG TAB PO SCH (18:30)
[2020-03-07] MEDS ORDERED: metFORMIN 500 MG TAB PO SCH (18:30)
[2020-03-07] MEDS ORDERED: ATROPINE SULFATE 0.1 MG/ML 10ML SYRINGE ONE (18:41)
[2020-03-07 21:03] LABS: Glucose,Whole Blood 115 mg/dL (75-99)
[2020-03-07] MEDS: HEPARIN SODIUM,PORCINE 5,000 UNIT/ML 1 ML VIAL SQ SCH (22:07)
--- NOTE | 2020-03-07 23:20 | CONS ---
DATE OF CONSULTATION: 03/07/2020 This is a 54-year-old gentleman known to me from the office. Patient has history of obesity. He came with cardiac issue and patient has on external pacemaker. I was consulted for rule out any infection in the foot. The patient has history of chronic venous hypertension. He has been using compression wrap to the right lower extremity. On examination, the patient's femorals are 1+ bilateral. Patient has bilateral venous hypertension of the lower extremity with some induration. No ulcer. No open wound noted. IMPRESSION: Chronic venous hypertension with obesity and the patient has been using compression to the right lower extremity. At this point, there is no evidence of any wound or any sign of infection. Please proceed with pacemaker. MMODL / IJN: [id number] / JAC
[2020-03-08 03:17] LABS: Basophils # (A) 0.1 k/uL (0-0.2); Basophils % (A) 1 %; Eosinophils # (A) 0.2 k/uL (0-0.7); Eosinophils % (A) 2 %; HCT 47.8 % (39.0-53.0); HGB 15.3 gm/dL (13.0-17.5); Lymphocytes # (A) 1.1 k/uL (1.0-4.8); Lymphocytes % (A) 16 %; MCHC 32.1 g/dL (31.0-37.0); MCV 93.6 fL (80.0-100.0); Mean Platelet Volume 8.2; Monocytes # (A) 0.5 k/uL (0-1.0); Monocytes % (A) 7 %; Neutrophils # (A) 4.9 k/uL (1.3-7.7); Neutrophils % (A) 72 %; Platelet Count 196 k/uL (150-450); RBC 5.11 m/uL (4.30-5.90); RDW 13.6 % (11.5-15.5); WBC 6.7 k/uL (3.8-10.6)
[2020-03-08 03:30] LABS: ALT 21 U/L (4-49); AST 27 U/L (17-59); African American GFR (CKD) >90 (>60 ml/min/1.73 sqM); Albumin 3.7 g/dL (3.5-5.0); Alkaline Phosphatase 46 U/L (38-126); Anion Gap 5 mmol/L; Blood Urea Nitrogen 13 mg/dL (9-20); Calcium 8.9 mg/dL (8.4-10.2); Carbon Dioxide 27 mmol/L (22-30); Chloride 106 mmol/L (98-107); Cholesterol 135 mg/dL (<200); Glucose 104 mg/dL (74-99); HDL Cholesterol 30 mg/dL (40-60); LDL Cholesterol,Calculated 78 mg/dL (0-99); Non-African American GFR(CKD) >90 (>60 ml/min/1.73 sqM); Potassium 4.1 mmol/L (3.5-5.1); Sodium 138 mmol/L (137-145); Total Bilirubin 0.8 mg/dL (0.2-1.3); Total Protein 6.2 g/dL (6.3-8.2); Triglycerides 136 mg/dL (<150)
[2020-03-08] MEDS: SODIUM CHLORIDE 0.9% 1,000 ML IV SCH ×3 (04:38→14:17)
[2020-03-08 06:38] LABS: Glucose,Whole Blood 93 mg/dL (75-99)
[2020-03-08] MEDS: LEVOTHYROXINE 25 MCG TAB PO SCH (06:45)
[2020-03-08] MEDS ORDERED: SODIUM CHLORIDE 0.9% 1,000 ML IV SCH (07:45)
[2020-03-08] MEDS ORDERED: CLINDAMYCIN 600 MG in SODIUM CHLORIDE 0.9% IRRIGATIO 250 ML IRRIGATION ONE (08:00)
[2020-03-08] MEDS ORDERED: CLINDAMYCIN 900 MG in DEXTROSE 5% IN WATER 50 ML IVPB ONE ×2 (08:00)
[2020-03-08] MEDS: metFORMIN 500 MG TAB PO SCH (08:16)
[2020-03-08 08:28] LABS: African American GFR (CKD) >90 (>60 ml/min/1.73 sqM); Anion Gap 7 mmol/L; Blood Urea Nitrogen 14 mg/dL (9-20); Calcium 8.7 mg/dL (8.4-10.2); Carbon Dioxide 29 mmol/L (22-30); Chloride 104 mmol/L (98-107); Glucose 102 mg/dL (74-99); Non-African American GFR(CKD) >90 (>60 ml/min/1.73 sqM); Sodium 140 mmol/L (137-145)
[2020-03-08] MEDS: amLODIPine 5 MG TAB PO SCH (08:57)
[2020-03-08] MEDS: allopurinoL 100 MG TAB PO SCH (08:57)
[2020-03-08] MEDS: ASPIRIN 325 MG TAB PO SCH (08:57)
[2020-03-08] MEDS: FAMOTIDINE 20 MG TAB PO SCH (08:57)
[2020-03-08] MEDS: HEPARIN SODIUM,PORCINE 5,000 UNIT/ML 1 ML VIAL SQ SCH ×2 (08:57→22:27)
[2020-03-08] MEDS: lisinopriL 10 MG TAB PO SCH (08:57)
[2020-03-08] MEDS ORDERED: DOBUTamine DRIP for NUC MED 500 MG in DEXTROSE/WATER 1 250ML.BAG IV ONE (09:00)
--- NOTE | 2020-03-08 11:51 | ECHOF ---
Referral Reason:LVF MEASUREMENTS -------- HEIGHT: 172.7 cm WEIGHT: 147.9 kg BP: 115/73 IVSd: 1.4 cm (0.6 - 1.1) LVIDd: 4.5 cm (3.9 - 5.3) LVPWd: 1.6 cm (0.6 - 1.1) IVSs: 2.3 cm LVIDs: 2.8 cm LVPWs: 2.1 cm Ao Diam: 3.0 cm (2.0 - 3.7) LA Diam: 3.2 cm (2.7 - 3.8) AV Cusp: 1.8 cm (1.5 - 2.6) EPSS: 1.0 cm MV E Mendoza: 0.90 m/s MV DecT: 222 ms MV A Mendoza: 0.47 m/s MV E/A Ratio: 1.90 RAP: 5.00 mmHg RVSP: 9.86 mmHg MV EF SLOPE: 110.91 mm/s (70 - 150) MV EXCURSION: 19.52 mm (> 18.000) FINDINGS -------- This was a technically difficult study with suboptimal views. The left ventricular size is normal. There is moderate concentric left ventricular hypertrophy. O verall left ventricular systolic function is low-normal with, an EF between 50 - 55 %. The RV was not well visualized. The left atrium was not well visualized. The right atrium was not well visualized. Lumason used Unable to visualize the septum. The aortic valve was not well visualized. The mitral valve was not well visualized. There is trace mitral regurgitation. The tricuspid valve was not well visualized. Trace tricuspid regurgitation present. Right ventric ular systolic pressure is normal at < 35 mmHg. The pulmonic valve was not well visualized. The aortic root size is normal. IVC Not well visulized. There is no pericardial effusion. CONCLUSIONS -------- 1. The left ventricular size is normal. 2. There is moderate concentric left ventricular hypertrophy. 3. Overall left ventricular systolic function is low-normal with, an EF between 50 - 55 %. 4. There is trace mitral regurgitation. 5. Trace tricuspid regurgitation present. 6. There is no pericardial effusion. RESIDENTIAL CARPET INSTALLER: Ana Cristina Aceves RD
[2020-03-08] MEDS ORDERED: LIDOCAINE 1% INJ 10MG/ML (20 ML MDV) ONE (12:43)
[2020-03-08] MEDS ORDERED: fentaNYL (PF) 50 MCG/ML 2 ML AMP ONE (12:54)
[2020-03-08] MEDS ORDERED: LIDOCAINE 1% INJ 10MG/ML (20 ML MDV) SQ ONE (12:55)
[2020-03-08] MEDS ORDERED: fentaNYL (PF) 50 MCG/ML 2 ML AMP IVP ONE (12:55)
[2020-03-08] MEDS ORDERED: MIDAZOLAM 2 MG/2 ML VIAL IVP ONE (12:55)
[2020-03-08] MEDS ORDERED: IV FLUID CONTINUATION 600 ML IV ONE (12:58)
--- NOTE | 2020-03-08 13:19 | P.PCN ---
Date of Procedure: 03/08/20 Preoperative Diagnosis: High degree AV block associated with syncope Postoperative Diagnosis: The same Procedure(s) Performed: Temporary pacemaker insertion Description of Procedure: This 53-year-old gentleman was admitted to the hospital with episodes of dizziness and syncope. He was noted to have high degree AV block with a long pauses of more than 6 to 7 seconds. Patient advised with temporary pacemaker with the lab for permanent pacemaker as soon as possible. Procedure: Patient was brought to the lab in a fasting state. Patient is prepped and draped in the usual fashion. Patient was given IV Versed 1 mg and fentanyl 50 g. The right groin is prepped and draped in the usual fashion. The right groin is infiltrated with lidocaine and right femoral vein was entered using Seldinger technique and a 7-British sheath was placed in the right femoral vein. A 6-British balloontipped temporary pacemaker was advanced under fluoroscopy into the right ventricle apical region. Satisfactory position was obtained. Minimal patient threshold was 0.3. Pacemaker is set at a rate of 50 or and output of 3. The sheath was sutured to the floor in the groin. No immediate complications. Plan: Patient to be observed on the telemetry unit. Permanent pacemaker as soon as possible
--- NOTE | 2020-03-08 14:29 | P.PN ---
Subjective Progress Note Date: 03/08/20 53 year-old morbidly obese male one of Dr. Noonan patient with past medical history of type 2 diabetes, hypertension, hyperlipidemia and history of throat cancer post radiation therapy still have mild hoarseness who is also suffer from chronic right lower extremity cellulitis has seen Dr. Farfan and wound center on regular basis. 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 fib or a flutter in between. Cardiology were notified and patient was giving 1 dose of atropine which was able to reverse this completely while he is having symptom he felt lightheaded and dizzy like symptom but no chest pain or significant shortness of breath. 03/08: Yesterday evening, patient again developed symptoms and thought he was going to pass out. He had a 4 second pause on the monitor and life pack was applied. He then had a 10 second pause, atropine was given and patient was transferred to the intensive care unit. He is scheduled for pacemaker implantation today. addictions counselor is a sinus rhythm. CBC unremarkable. Creatinine 0.59. Echocardiogram reveals EF of 50-55% with trace mitral regurgitation, trace tricuspid regurgitation. Review of systems CONSTITUTIONAL: Well-developed no acute respiratory distress. Morbid obesity. Denies fever. EYES: No icterus sclerae, no conjunctivitis. EARS, NOSE, MOUTH, THROAT, and FACE: No sore throat, lymphadenopathy, carotid bruits or deformity. RESPIRATORY: No SOB cough or wheezes. CARDIOVASCULAR: No CP, Palpitation, PND, Orthopnea, or angina. Positive palpitation GASTROINTESTINAL: No Abd pain, Nausea or vomiting, no Diarrhea or constipation, No GI Bleed, no distention or masses. GENITOURINARY: Negative for Hematuria or UTI, no kidney stones. INTEGUMENT/BREAST: Negative for any muscular injury with mild osteoarthritis.. HEMATOLOGIC/LYMPHATIC: Negative for bleed or purpura. MUSCULOSKELTAL: Negative for Myalgia or arthralgia. NEURLOGICAL: No LOC, Sz or syncope, blurred vision positive lightheadedness and dizziness BEHAVIORAL/PSYCH: Negative. ENDOCRINE: Negative. Physical examination General Appearance: Alert, cooperative, no distress, appears stated age. Morbidly obese Neck HEENT: Supple, no lymphadenopathy, no thyroid enlargement, no carotid bruits. Lungs: Clear to auscultation without crackles or wheezes no rhonchi, no deformity. Chest Wall: Chest wall normal expansion with deep inspiration no tenderness and no deformity was found on exam, no costochondral pain or discomfort. Heart: Regular rate and rhythm, S1, S2 normal, no murmur, rub or gallop. Back: Symmetric, no curvature, ROM normal, no CVA tenderness. Abdomen: Soft, non-tender, bowel sounds active all four quadrants, no masses, no organomegaly. Extremities: Extremities normal, atraumatic, no cyanosis or edema. Significant change in color of the lower extremity from the knee down with decreased pulses dorsalis pedis and posterior tibial. Pulses: 2+ and symmetric. Skin: Skin color, texture, tugor normal, no rashes or lesions. Neurologic: Alert oriented x3 cranial nerves II through XII intact, no motor deficit, no abnormal balance or gait. Assessment and plan 1 syncope: Secondary to AV block with pauses up to 10 seconds. Patient is status post atropine. Scheduled for pacemaker implantation today. Cardiology consult appreciated. 2 AV block: Not a clear etiology. 3 most likely obstructive sleep apnea: Patient never been tested highly suspected according to him which highly encourage patient to talk to his primary care physician and try to schedule DOTTIE. 4 type 2 diabetes: Continue patient on Accu-Chek with sliding scales coverage patient will be resume metformin at this point. 5 hypertension: Remain on Lotrel 5/10 mg daily continue medication continue hydrochlorothiazide. 6 chronic edema and lymphedema patient still been treated for chronic cellulitis of the right leg has David wrap and KEELY hose on it along with seen Dr. Farfan regular basis. 7 hypothyroidism: Continue patient on levothyroxine 25 g daily. 8 history of gout: Has been on allopurinol 100 mg daily continue medication. 9 hyperglycemia: Continue Accu-Chek sliding scale coverage. 10 GI prophylaxis: Patient be on Pepcid 20 mg daily. 11 DVT prophylaxis: Patient be on heparin subcutaneous. CODE STATUS: Full code. Discharge plan: Home Impression and plan of care have been directed as dictated by the signing physician. Kelly Cordova nurse practitioner acting as scribe for signing physician. Objective - Vital Signs Vital signs: Vital Signs Temp 98.2 F 03/08/20 00:00 Pulse 61 03/08/20 07:00 Resp 14 03/08/20 07:00 BP 104/65 03/08/20 07:00 Pulse Ox 99 03/08/20 07:00 Intake & Output 03/07/20 03/08/20 03/08/20 18:59 06:59 18:59 Intake Total 1005 675 75 Output Total 750 Balance 1005 -75 75 Weight 148 kg Intake: Intake, IV Titration 525 675 75 Amount Sodium Chloride 0.9% 1, 525 675 75 000 ml @ 75 mls/hr IV . [id number] [facility] Rx#:[id number] Oral 480 Output: Urine 750 Other: Voiding Method Toilet Urinal # Voids 2 - Labs CBC & Chem 7: 03/08/20 02:55 03/08/20 07:50 Labs: Abnormal Lab Results - Last 24 Hours (Table) 03/07/20 03/07/20 03/07/20 Range/Units 11:56 17:13 21:02 Creatinine (0.66-1.25) mg/dL Glucose (74-99) mg/dL POC Glucose (mg/dL) 103 H 105 H 115 H (75-99) mg/dL Total Protein (6.3-8.2) g/dL HDL Cholesterol (40-60) mg/dL 03/08/20 Range/Units 02:55 Creatinine 0.61 L (0.66-1.25) mg/dL Glucose 104 H (74-99) mg/dL POC Glucose (mg/dL) (75-99) mg/dL Total Protein 6.2 L (6.3-8.2) g/dL HDL Cholesterol 30 L (40-60) mg/dL
[2020-03-08] MEDS ORDERED: fentaNYL (PF) 50 MCG/ML 2 ML AMP IVP PRN (16:17)
--- NOTE | 2020-03-08 16:46 | CONS ---
CONSULTATION PULMONARY/CRITICAL CARE CONSULTATION: DATE OF SERVICE: 03/08/2020. REASON FOR CONSULTATION: Symptomatic bradycardia and presyncope. This is a 54-year-old gentleman who was apparently admitted through the emergency room on March 06, 2020 for lightheadedness and dizziness. The patient also apparently was feeling like he was going to pass out. It was noted in the emergency room that he had bradycardia and had intermittent pauses in his rhythm. The patient was admitted on 03/07 but came to the ER actually on 03/06. He came to the ICU on 03/07/2020. The patient is scheduled to have a permanent pacemaker placed at noon today. Currently, he is on 2 L nasal cannula and saline at 50 mL an hour. He has a history of sleep apnea syndrome, noncompliant with CPAP, DJD, vocal cord cancer, diabetes, hypertension, and hypothyroidism. Currently, the patient is resting comfortably without complaints. HOME MEDICATIONS: Reviewed. He was on Synthroid, Zyloprim, Glucophage, amlodipine/benazepril combination, HydroDIURIL, and Lasix. ALLERGIES: PENICILLIN G. MEDICAL HISTORY: Includes vocal cord cancer, diabetes, hypertension, osteoarthritis, sleep apnea, hypothyroidism, gout, back pain, arthritis, and lymphedema particularly in his right leg. He also has a previous history of MRSA infection in 2014. His vocal cord cancer was treated with radiation in October 2017. SURGICAL HISTORY: Positive for cholecystectomy and vocal cord biopsy. SOCIAL HISTORY: Positive for previous tobacco use occasionally. He denies any illicit drug use and does use alcohol occasionally. FAMILY HISTORY: Positive for mother with no medical issues. A brother with history of liver cirrhosis from alcohol abuse and a father with lung cancer. REVIEW OF SYSTEMS: CONSTITUTIONAL: Negative. NEUROLOGIC: Negative. HEENT: Negative. CARDIOVASCULAR: Presyncope, lightheadedness. PULMONARY: Negative. GI: Negative. : Negative. RHEUMATOLOGIC: Negative. IMMUNOLOGIC: Negative. ENDOCRINOLOGIC: Negative. DERMATOLOGIC: Negative. Current vital signs, temperature is 97.9, heart rate 60, respiratory rate 14, blood pressure 114/69 mean 84, 2 L saturation 98%. Appears in no acute distress. HEENT: Examination is grossly unremarkable. Nasal O2 in place. NECK: Supple, full range of motion. No adenopathy. Neck veins are flat. CARDIOVASCULAR: Examination reveals regular rhythm and rate. Heart rate 74 beats per minute. S1, S2 normal. No murmur. LUNGS: Reveal mostly clear breath sounds. A few scattered rhonchi. No wheezes or crackles. ABDOMEN: Soft, but obese. Bowel sounds are heard. EXTREMITIES: Intact. No cyanosis, clubbing, or edema. SKIN: Without rash. NEUROLOGIC: Examination is nonfocal. White count 6.7, hemoglobin 15.3, hematocrit 47.8, platelet count 196,000, sodium 140, potassium 4, chloride 104, CO2 is 29, anion gap is 7. BUN and creatinine were 14 and 0.59. The rest of the labs look pretty good. Microbiology is negative. A chest x-ray dated March 07 shows no active disease. Medications are reviewed. He is currently on Zyloprim, Norvasc, aspirin, famotidine, subcu heparin, levothyroxine, lisinopril, metformin, sublingual nitroglycerin, and saline IV. ASSESSMENT: 1. Symptomatic bradycardia with presyncope/lightheadedness and dizziness, with anticipated pacemaker insertion at noon today. 2. History of sleep apnea syndrome, noncompliant with CPAP. 3. Degenerative joint disease. 4. History of vocal cord cancer, status post radiation therapy. 5. Diabetes. 6. Hypertension. 7. Hypothyroidism. 8. Gout. 9. Right lower extremity lymphedema. PLAN: The patient is stable. The patient will go for permanent pacemaker today at noon. Will continue to follow. Prognosis is guarded. We encourage him to use a CPAP device for his sleep apnea. It is possible that his rhythm disturbance relates to untreated or poorly treated sleep apnea syndrome. No additional recommendations are made. Prognosis is guarded. MMODL / IJN: [id number] /
[2020-03-08] MEDS: fentaNYL (PF) 50 MCG/ML 2 ML AMP IVP PRN ×2 (17:16→22:27)
[2020-03-08 17:22] LABS: Glucose,Whole Blood 109 mg/dL (75-99)
[2020-03-08] MEDS: INSULIN ASPART (NovoLOG) 100 UNIT/ML VIAL SQ SCH ×2 (17:24→22:14)
[2020-03-08 19:55] LABS: Glucose,Whole Blood 105 mg/dL (75-99)
[2020-03-09] MEDS: SODIUM CHLORIDE 0.9% 1,000 ML IV SCH ×2 (06:16→17:21)
[2020-03-09] MEDS: LEVOTHYROXINE 25 MCG TAB PO SCH (06:17)
[2020-03-09 06:35] LABS: Basophils # (A) 0.1 k/uL (0-0.2); Basophils % (A) 1 %; Eosinophils # (A) 0.2 k/uL (0-0.7); Eosinophils % (A) 2 %; HCT 47.4 % (39.0-53.0); HGB 15.9 gm/dL (13.0-17.5); Lymphocytes # (A) 0.8 k/uL (1.0-4.8); Lymphocytes % (A) 11 %; MCH 31.2 pg (25.0-35.0); MCHC 33.5 g/dL (31.0-37.0); Mean Platelet Volume 7.8; Monocytes # (A) 0.4 k/uL (0-1.0); Monocytes % (A) 5 %; Neutrophils # (A) 5.7 k/uL (1.3-7.7); Neutrophils % (A) 79 %; Platelet Count 177 k/uL (150-450); RDW 13.2 % (11.5-15.5); WBC 7.2 k/uL (3.8-10.6)
[2020-03-09 06:49] LABS: African American GFR (CKD) >90 (>60 ml/min/1.73 sqM); Anion Gap 4 mmol/L; Blood Urea Nitrogen 18 mg/dL (9-20); Calcium 8.8 mg/dL (8.4-10.2); Carbon Dioxide 27 mmol/L (22-30); Chloride 106 mmol/L (98-107); Glucose 103 mg/dL (74-99); Non-African American GFR(CKD) >90 (>60 ml/min/1.73 sqM); Potassium 4.3 mmol/L (3.5-5.1); Sodium 137 mmol/L (137-145)
[2020-03-09] MEDS: INSULIN ASPART (NovoLOG) 100 UNIT/ML VIAL SQ SCH ×3 (06:58→17:20)
[2020-03-09 07:03] LABS: Glucose,Whole Blood 103 mg/dL (75-99)
[2020-03-09] MEDS: ASPIRIN 325 MG TAB PO SCH (09:10)
[2020-03-09] MEDS: FAMOTIDINE 20 MG TAB PO SCH (09:10)
[2020-03-09] MEDS: amLODIPine 5 MG TAB PO SCH (09:10)
[2020-03-09] MEDS: allopurinoL 100 MG TAB PO SCH (09:10)
[2020-03-09] MEDS: HEPARIN SODIUM,PORCINE 5,000 UNIT/ML 1 ML VIAL SQ SCH (09:10)
[2020-03-09] MEDS: lisinopriL 10 MG TAB PO SCH (09:12)
[2020-03-09] MEDS: metFORMIN 500 MG TAB PO SCH (10:09)
[2020-03-09] MEDS ORDERED: IV FLUID CONTINUATION 250 ML IV ONE (10:30)
[2020-03-09] MEDS ORDERED: IV FLUID CONTINUATION 1,000 ML IV ONE (10:30)
[2020-03-09] MEDS: IOPAMIDOL-370 50ML BTL INJ ONE ×2 (10:45→11:34)
[2020-03-09] MEDS ORDERED: LIDOCAINE 1% INJ 10MG/ML (20 ML MDV) ONE (10:50)
[2020-03-09] MEDS ORDERED: fentaNYL (PF) 50 MCG/ML 2 ML AMP ONE (10:50)
[2020-03-09] MEDS: fentaNYL (PF) 50 MCG/ML 2 ML AMP IVP ONE ×2 (11:03→12:31)
[2020-03-09] MEDS ORDERED: MIDAZOLAM 2 MG/2 ML VIAL IVP ONE (11:03)
[2020-03-09] MEDS ORDERED: LIDOCAINE 1% INJ 10MG/ML (20 ML MDV) SQ ONE ×2 (11:17→11:25)
[2020-03-09] MEDS ORDERED: CLINDAMYCIN 600 MG in SODIUM CHLORIDE 0.9% IRRIGATIO 250 ML IRRIGATION ONE (11:30)
[2020-03-09] MEDS ORDERED: CLINDAMYCIN 900 MG in DEXTROSE 5% IN WATER 50 ML IVPB ONE ×2 (11:30)
--- NOTE | 2020-03-09 11:56 | P.PN ---
Subjective Progress Note Date: 03/09/20 53 year-old morbidly obese male one of Dr. Noonan patient with past medical history of type 2 diabetes, hypertension, hyperlipidemia and history of throat cancer post radiation therapy still have mild hoarseness who is also suffer from chronic right lower extremity cellulitis has seen Dr. Farfan and wound center on regular basis. 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 fib or a flutter in between. Cardiology were notified and patient was giving 1 dose of atropine which was able to reverse this completely while he is having symptom he felt lightheaded and dizzy like symptom but no chest pain or significant shortness of breath. 03/08: Yesterday evening, patient again developed symptoms and thought he was going to pass out. He had a 4 second pause on the monitor and life pack was applied. He then had a 10 second pause, atropine was given and patient was transferred to the intensive care unit. He is scheduled for pacemaker implantation today. ekg monitor tech is a sinus rhythm. CBC unremarkable. Creatinine 0.59. Echocardiogram reveals EF of 50-55% with trace mitral regurgitation, trace tricuspid regurgitation. 03/09: Patient remains in the intensive care unit. Yesterday he had a temporary pacemaker inserted due to scheduling problems and is scheduled for permanent pacemaker today. Patient did not have any issues overnight. He denies having any symptoms of lightheadedness or dizziness. He has been afebrile, heart rate 67, blood pressure 105/73, pulse ox 94% on room air. Repeat CBC is unremarkable. Electrolytes normal, creatinine 0.58. Review of systems CONSTITUTIONAL: Well-developed no acute respiratory distress. Morbid obesity. Denies fever. Denies chills. EYES: No icterus sclerae, no conjunctivitis. EARS, NOSE, MOUTH, THROAT, and FACE: No sore throat, lymphadenopathy, carotid bruits or deformity. RESPIRATORY: No SOB cough or wheezes. CARDIOVASCULAR: No CP, Palpitation, PND, Orthopnea, or angina. Positive palpitation GASTROINTESTINAL: No Abd pain, Nausea or vomiting, no Diarrhea or constipation, No GI Bleed, no distention or masses. GENITOURINARY: Negative for Hematuria or UTI, no kidney stones. INTEGUMENT/BREAST: Negative for any muscular injury with mild osteoarthritis.. HEMATOLOGIC/LYMPHATIC: Negative for bleed or purpura. MUSCULOSKELTAL: Negative for Myalgia or arthralgia. NEURLOGICAL: No LOC, Sz or syncope, blurred vision positive lightheadedness and dizziness BEHAVIORAL/PSYCH: Negative. ENDOCRINE: Negative. Physical examination General Appearance: Alert, cooperative, no distress, appears stated age. Morbidly obese, resting in ICU bed Neck HEENT: Supple, no lymphadenopathy, no thyroid enlargement, no carotid bruits. Lungs: Clear to auscultation without crackles or wheezes no rhonchi, no deformity. Chest Wall: Chest wall normal expansion with deep inspiration no tenderness and no deformity was found on exam, no costochondral pain or discomfort. Heart: Regular rate and rhythm, S1, S2 normal, no murmur, rub or gallop. Back: Symmetric, no curvature, ROM normal, no CVA tenderness. Abdomen: Soft, non-tender, bowel sounds active all four quadrants, no masses, no organomegaly. Extremities: Extremities normal, atraumatic, no cyanosis or edema. Significant change in color of the lower extremity from the knee down with decreased pulses dorsalis pedis and posterior tibial. Pulses: 2+ and symmetric. Skin: Skin color, texture, tugor normal, no rashes or lesions. Neurologic: Alert oriented x3 cranial nerves II through XII intact, no motor deficit, no abnormal balance or gait. Assessment and plan 1 syncope: Secondary to AV block with pauses up to 10 seconds. Patient is status post atropine and status post temporary pacemaker. Scheduled for pacemaker implantation today. Cardiology consult appreciated. 2 AV block: Not a clear etiology. 3 most likely obstructive sleep apnea: Patient never been tested highly suspected according to him which highly encourage patient to talk to his primary care physician and try to schedule DOTTIE. 4 type 2 diabetes: Continue patient on Accu-Chek with sliding scales coverage patient will be resume metformin at this point. 5 hypertension: Remain on Lotrel 5/10 mg daily continue medication continue hyd rochlorothiazide. 6 chronic edema and lymphedema patient still been treated for chronic cellulitis of the right leg has David wrap and KEELY hose on it along with seen Dr. Farfan regular basis. 7 hypothyroidism: Continue patient on levothyroxine 25 g daily. 8 history of gout: Has been on allopurinol 100 mg daily continue medication. 9 hyperglycemia: Continue Accu-Chek sliding scale coverage. 10 GI prophylaxis: Patient be on Pepcid 20 mg daily. 11 DVT prophylaxis: Patient be on heparin subcutaneous. CODE STATUS: Full code. Discharge plan: Home in the next 24 hours Impression and plan of care have been directed as dictated by the signing physician. Kelly Cordova nurse practitioner acting as scribe for signing physician. Objective - Vital Signs Vital signs: Vital Signs Temp 98.8 F 03/09/20 00:00 Pulse 70 03/09/20 07:00 Resp 12 03/09/20 07:00 BP 110/63 03/09/20 07:00 Pulse Ox 97 03/09/20 07:00 Intake & Output 03/08/20 03/09/20 03/09/20 18:59 06:59 18:59 Intake Total 1240 650 Output Total 300 450 Balance 940 200 Weight 134 kg Intake: IV 50 Intake, IV Titration 650 650 Amount Sodium Chloride 0.9% 1, 500 650 000 ml @ 50 mls/hr IV . Q20H CLAUDIA Rx#:[id number] Sodium Chloride 0.9% 1, 150 000 ml @ 75 mls/hr IV . [id number] CLAUDIA Rx#:[id number] Oral 540 Output: Urine 300 450 Other: Voiding Method Urinal Urinal - Labs CBC & Chem 7: 03/09/20 06:19 03/09/20 06:19 Labs: Abnormal Lab Results - Last 24 Hours (Table) 03/08/20 03/08/20 03/08/20 Range/Units 07:50 17:20 19:53 Lymphocytes # (1.0-4.8) k/uL Creatinine 0.59 L (0.66-1.25) mg/dL Glucose 102 H (74-99) mg/dL POC Glucose (mg/dL) 109 H 105 H (75-99) mg/dL 03/09/20 03/09/20 03/09/20 Range/Units 06:19 06:19 06:58 Lymphocytes # 0.8 L (1.0-4.8) k/uL Creatinine 0.58 L (0.66-1.25) mg/dL Glucose 103 H (74-99) mg/dL POC Glucose (mg/dL) 103 H (75-99) mg/dL
[2020-03-09] MEDS ORDERED: ACETAMINOPHEN TAB 325 MG TAB PO PRN (12:19)
--- NOTE | 2020-03-09 12:52 | PN ---
PROGRESS NOTE PULMONARY/CRITICAL CARE PROGRESS NOTE: DATE OF SERVICE: 03/09/2020 This is a 54-year-old male with a history of symptomatic bradycardia and presyncope. The patient was to go for a pacemaker yesterday but apparently it is not going to be done until today. Currently, he is not receiving any supplemental oxygen. He is on saline at 50 mL an hour. The procedure will be done by Dr. Carson. The patient is otherwise stable. He has no major complaints or issues. MEDICAL HISTORY: Positive for vocal cord cancer, diabetes mellitus, hypertension, osteoarthritis, sleep apnea syndrome, hypothyroidism, gout, chronic back pain, arthritis, and lymphedema of the lower extremities, right greater than left. Current vital signs are reviewed, temperature 98.2, heart rate 70, respiratory rate 18, blood pressure 126/72 mean 90, saturations on room air of 96%. Appears in no acute distress. HEENT: Examination is grossly unremarkable. NECK: Supple, full range of motion. No adenopathy. Neck veins are flat. CARDIOVASCULAR: Examination reveals regular rhythm and rate. S1, S2 normal. No S3, S4, or murmur. LUNGS: Reveal clear breath sounds. No wheezes or rhonchi. No crackles. Breath sounds equal bilaterally. ABDOMEN: Soft, but obese. Bowel sounds are heard. EXTREMITIES: Intact. No cyanosis, clubbing, or edema. SKIN: Without rash. NEUROLOGIC: Examination is brief but nonfocal. LABS: Today are reviewed. White count 7.2, hemoglobin 15.9, hematocrit 47.4, platelet count 177,000, sodium 137, potassium 4.3, chloride 106, CO2 is 27, anion gap is 4. BUN and creatinine were 18 and 0.58. Microbiology is negative. No recent chest x-ray to review. Medications are reviewed. Everything appears to be appropriate. ASSESSMENT: 1. Symptomatic bradycardia with presyncope/lightheadedness and dizziness, with anticipated pacemaker insertion, today, March 09. 2. History of sleep apnea syndrome, noncompliant with CPAP. 3. Degenerative joint disease. 4. History of vocal cord cancer, status post radiation therapy. 5. Diabetes mellitus. 6. Hypertension. 7. Hypothyroidism. 8. Gout. 9. Obesity. 10.Right lower extremity lymphedema. PLAN: Currently, the patient is resting comfortably. Dr. Carson will do the pacemaker today apparently. He is not receiving any supplemental oxygen. His IV is saline at 50 mL an hour. He has been stable overnight. No additional recommendations are made. Prognosis is guarded. We have encouraged him to make sure that he gets back on his CPAP device. VÍCTOR / CARLOSN: [id number] /
[2020-03-09] MEDS ORDERED: CLINDAMYCIN 900 MG in DEXTROSE 5% IN WATER 50 ML IVPB SCH ×2 (17:00)
[2020-03-09 21:13] LABS: Glucose,Whole Blood 102 mg/dL (75-99)
[2020-03-10] MEDS: HEPARIN SODIUM,PORCINE 5,000 UNIT/ML 1 ML VIAL SQ SCH ×2 (00:46→08:38)
[2020-03-10] MEDS: INSULIN ASPART (NovoLOG) 100 UNIT/ML VIAL SQ SCH ×2 (00:46→06:15)
[2020-03-10] MEDS: SODIUM CHLORIDE 0.9% 1,000 ML IV SCH (00:47)
[2020-03-10 06:15] LABS: Glucose,Whole Blood 104 mg/dL (75-99)
[2020-03-10] MEDS: LEVOTHYROXINE 25 MCG TAB PO SCH (06:15)
[2020-03-10] MEDS: ASPIRIN 325 MG TAB PO SCH (08:37)
[2020-03-10] MEDS: allopurinoL 100 MG TAB PO SCH (08:37)
[2020-03-10] MEDS: FAMOTIDINE 20 MG TAB PO SCH (08:38)
[2020-03-10] MEDS: metFORMIN 500 MG TAB PO SCH (08:38)
[2020-03-10] MEDS: lisinopriL 10 MG TAB PO SCH (08:38)
[2020-03-10] MEDS: amLODIPine 5 MG TAB PO SCH (08:38)
[2020-03-10 08:55] VITALS: BP 106/71; PULSE 84; RESP 18; TEMP 98.3
--- NOTE | 2020-03-10 09:26 | P.DS ---
Providers Date of admission: 03/07/20 01:44 Expected date of discharge: 03/10/20 Attending physician: Cyril Hazel Consults: 03/07/20 01:42 Consult Physician Routine Consulting Provider: Nader Carson Consult Reason/Comments: AV block Do you want consulting provider notified?: Already Contacted 03/07/20 09:03 Consult Physician Routine Consulting Provider: Facundo Farfan Consult Reason/Comments: clear for pacemaker, no infection Do you want consulting provider notified?: Yes 03/07/20 22:10 Consult Physician Urgent Consulting Provider: Lj Mathis Consult Reason/Comments: ICU Management Do you want consulting provider notified?: Already Contacted Primary care physician: [place] Hospital Course: 53 year-old morbidly obese male one of Dr. Noonan patient with past medical history of type 2 diabetes, hypertension, hyperlipidemia and history of throat cancer post radiation therapy still have mild hoarseness who is also suffer from chronic right lower extremity cellulitis has seen Dr. Farfan and wound center on regular basis. 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 fib or a flutter in between. Cardiology were notified and patient was giving 1 dose of atropine which was able to reverse this completely while he is having symptom he felt lightheaded and dizzy like symptom but no chest pain or significant shortness of breath. 03/08: Yesterday evening, patient again developed symptoms and thought he was going to pass out. He had a 4 second pause on the monitor and life pack was applied. He then had a 10 second pause, atropine was given and patient was transferred to the intensive care unit. He is scheduled for pacemaker implantation today. tierce filler is a sinus rhythm. CBC unremarkable. Creatinine 0.59. Echocardiogram reveals EF of 50-55% with trace mitral regurgitation, trace tricuspid regurgitation. 03/09: Patient remains in the intensive care unit. Yesterday he had a temporary pacemaker inserted due to scheduling problems and is scheduled for permanent pacemaker today. Patient did not have any issues overnight. He denies having any symptoms of lightheadedness or dizziness. He has been afebrile, heart rate 67, blood pressure 105/73, pulse ox 94% on room air. Repeat CBC is unremarkable. Electrolytes normal, creatinine 0.58. 03/10: Patient is seen today on the cardiac stepdown unit. He has had no events overnight. Patient has been afebrile, heart rate 84, blood pressure 106/71, pulse ox 94% on room air. Patient has been seen by cardiology this morning and cleared for discharge. Patient will be discharged home today in stable condition. Assessment and plan 1 syncope: Secondary to AV block with pauses up to 10 seconds. Patient is status post pacemaker implantation 2 AV block: Not a clear etiology. 3 most likely obstructive sleep apnea. Recommend outpatient sleep study. 4 type 2 diabetes 5 hypertension 6 chronic edema and lymphedema 7 hypothyroidism 8 history of gout 9 hyperglycemia Discharge plan: Home Impression and plan of care have been directed as dictated by the signing physician. Kelly Cordova nurse practitioner acting as scribe for signing physician. Patient Condition at Discharge: Good Plan - Discharge Summary Discharge Rx Participant: No New Discharge Prescriptions: New Aspirin EC [Ecotrin Low Dose] 81 mg PO DAILY #30 tablet. clindamycin HCL [Cleocin] 300 mg PO Q8H #9 cap Continue metFORMIN HCL [Glucophage] 500 mg PO DAILY Levothyroxine Sodium [Synthroid] 25 mcg PO DAILY allopurinoL [Zyloprim] 100 mg PO DAILY amLODIPine BESYLATE/BENAZEPRIL [Lotrel 5-10 MG] 1 cap PO DAILY Furosemide [Lasix] 20 mg PO DAILY Multivit-Min/FA/Lycopen/Lutein [Centrum Silver Men Tablet] 1 tab PO DAILY Ibuprofen [Motrin] 600 mg PO TID PRN PRN Reason: Pain Discontinued hydroCHLOROthiazide [Hydrodiuril] 25 mg PO DAILY Discharge Medication List Levothyroxine Sodium [Synthroid] 25 mcg PO DAILY 09/01/13 [History] allopurinoL [Zyloprim] 100 mg PO DAILY 09/01/13 [History] metFORMIN HCL [Glucophage] 500 mg PO DAILY 09/01/13 [History] amLODIPine BESYLATE/BENAZEPRIL [Lotrel 5-10 MG] 1 cap PO DAILY 10/22/13 [History] Furosemide [Lasix] 20 mg PO DAILY 03/07/18 [History] Ibuprofen [Motrin] 600 mg PO TID PRN 03/07/20 [History] Multivit-Min/FA/Lycopen/Lutein [Centrum Silver Men Tablet] 1 tab PO DAILY 03/07/20 [History] Aspirin EC [Ecotrin Low Dose] 81 mg PO DAILY #30 tablet. 03/10/20 [Rx] clindamycin HCL [Cleocin] 300 mg PO Q8H #9 cap 03/10/20 [Rx] Follow up Appointment(s)/Referral(s): Shade Gottlieb DO [Primary Care Provider] - 1 Week (office will call you with appointment time) Nader Carson MD [STAFF PHYSICIAN] - 1 Week ([facility] March 16 2:[address] Carson April 13 3:15) Patient Instructions/Handouts: Pacemaker (DC) Activity/Diet/Wound Care/Special Instructions: heart healthy diet do not lift left arm above shoulder level for 4 -6 weeks keep arm in sling if needed gentle range of motion exercises may be done keep dressing on and dry until follow up if you have chest pain, if your incision site became swollen, bleeding, report to ER Discharge Disposition: HOME SELF-CARE
--- NOTE | 2020-03-10 12:08 | XR ---
EXAMINATION TYPE: XR chest 2V DATE OF EXAM: 03/10/2020 COMPARISON: 03/07/2020 HISTORY: 54-year-old male placement check TECHNIQUE: PA and lateral views FINDINGS: Left anterior chest wall pacemaker generator with right atrial and right ventricular leads. Heart mil dly enlarged. Strandy lower lung atelectasis. Mild interstitial prominence is unchanged. No consolida tion or pleural effusion. Accentuated mid thoracic kyphosis. Density along the upper thoracic spine l ikely corresponds to anterior endplate spondylosis. Correlate with findings on routine oncologic surv eillance. IMPRESSION: 1. Dual-lead left-sided pacemaker generator. Mild cardiomegaly. Strandy bibasilar atelectasis. 2. Density projecting along the upper thoracic spine on the lateral view likely corresponds to anteri or endplate spondylosis. Correlate with findings on routine oncologic surveillance.
--- NOTE | 2020-03-24 08:57 | P.PCN ---
Date of Procedure: 03/09/20 Preoperative Diagnosis: Recurrent syncopes with sick sinus syndrome and sinus pauses. Postoperative Diagnosis: The same Procedure(s) Performed: Axillary venography and dual-chamber permanent pacemaker implantation Description of Procedure: HISTORY: This is a 54-year-old gentleman was admitted to the hospital with recurrent syncope and evidence of high degree AV block with a long pauses which was a recurrent Patient is advised to have permanent pacemaker implantation. CONSENT:I have discussed the risks, benefits and alternative therapies for the above-mentioned procedure and for both sedation/analgesia as well as necessary blood product administration, if indicated, as they pertain to this patient. The patient has indicated understanding and acceptance of the risks and procedures discussed. Patient is advised to have a temporary pacemaker because of significant PROCEDURE: Patient already had a temporary pacemaker done from the right groin which was set at a rate of 50 and output of 3. Patient was brought to the lab in a fasting state. Patient was prepped and draped in the usual fashion. Patient was given IV sedation with fentanyl and Versed. The skin below the left clavicle was infiltrated with lidocaine. An incision was made parallel to deltopectoral groove was deepened until the pectoral fascia was exposed. A pocket was created by blunt dissection and cautery. Axillary venography was performed to delineate the course of the axillary vein. 2 sticks were performed into extrathoracic portion of the axillary vein and 2 sheaths were advanced over the guidewires into the left in subclavian vein. Conscious Sedation: Versed 2mg Fentanyl 50 g Duration 62minutes LEADS: ATRIAL: This is manufactured by [employer]. Model number is 4076-52 and the serial number is [id number] VENTRICULAR: This is manufactured by [employer]. Model number is 4076-58 and the serial number is [id number]. THE DEVICE: This is manufactured by [employer]. Model number is [id number] and the serial number is [id number]. The ventricular lead is maneuvered l with help of a straight and curved stylets into the left ventricle apical region. Satisfactory position was obtained and threshold measurements were made. The atrial lead was then maneuvered into the right atrial appendage. And thresholds were obtained. THRESHOLDS: ATRIUM: The minimum pacing threshold was 1 at pulse width of 0.5. The impedance is 748 P-wave: 1.9 VENTRICLE: . The minimum pacing threshold was 0.5 at pulse width of 0.5. The impedance is 1193 R-wave: 7.1 The leads and pulse generator remained in the pocket after it was washed with antibiotics. Pocket was closed in the usual fashion. The fascia was closed with 2-0 Prolene ,the subcutaneous tissue was closed with 3-0 Prolene and the skin was closed with 4-0 Prolene. PROGRAMMING: MODE: The pacemaker is programmed to AAI to DDD. RATE: 60 to 130 OUTPUT: Atrium: 3.5 Ventricle: 3.5 FINAL IMPRESSION: #1. Successful implantation of dual-chamber pacemaker #2 axillary venography COMPLICATIONS: None PLAN: Patient will monitor for the next 24 hours. Prophylactic antibacterial be continued. Chest x-ray in the morning. If stable patient will be discharged home within next 24-48 hours.
== END 2020-03-10 10:06 | disposition home or self-care (01) | DRG 243 ==
LOC: EC 23:13 → 3SCARD 03-07 01:44 → 2SICU 03-07 20:07 → 3SCARD 03-10
PROVIDERS: ADMIT Internal Medicine Geriatric Medicine; ATTEND Internal Medicine Geriatric Medicine
PROC: 5A1223Z Performance of Cardiac Pacing, Continuous (ICD-10-PCS; 2020-03-08)
PROC: 02H63JZ Insertion of Pacemaker Lead into Right Atrium, Percutaneous Approach (ICD-10-PCS; 2020-03-09)
PROC: 02HK3JZ Insertion of Pacemaker Lead into Right Ventricle, Percutaneous Approach (ICD-10-PCS; 2020-03-09)
PROC: 0JH606Z Insertion of Pacemaker, Dual Chamber into Chest Subcutaneous Tissue and Fascia, Open Approach (ICD-10-PCS; principal; 2020-03-09 10:30)
DX: I44.0 Atrioventricular block, first degree (principal); Z68.42 Body mass index [BMI] 45.0-49.9, adult; L03.115 Cellulitis of right lower limb; E11.65 Type 2 diabetes mellitus with hyperglycemia; E66.01 Morbid (severe) obesity due to excess calories; I10 Essential (primary) hypertension; M19.90 Unspecified osteoarthritis, unspecified site; E03.9 Hypothyroidism, unspecified; G47.33 Obstructive sleep apnea (adult) (pediatric); I89.0 Lymphedema, not elsewhere classified; M10.9 Gout, unspecified; F10.11 Alcohol abuse, in remission; I87.309 Chronic venous hypertension (idiopathic) without complications of unspecified lower extremity; R60.9 Edema, unspecified; G89.29 Other chronic pain; I49.5 Sick sinus syndrome; M54.9 Dorsalgia, unspecified; E78.5 Hyperlipidemia, unspecified; Z79.84 Long term (current) use of oral hypoglycemic drugs; Z79.890 Hormone replacement therapy; Z79.899 Other long term (current) drug therapy; Z85.21 Personal history of malignant neoplasm of larynx; Z91.19 Patient's noncompliance with other medical treatment and regimen; Z92.3 Personal history of irradiation; Z86.14 Personal history of Methicillin resistant Staphylococcus aureus infection; Z90.49 Acquired absence of other specified parts of digestive tract; Z87.891 Personal history of nicotine dependence; Z98.890 Other specified postprocedural states; Z88.0 Allergy status to penicillin; Z80.1 Family history of malignant neoplasm of trachea, bronchus and lung; Z83.79 Family history of other diseases of the digestive system; Z81.1 Family history of alcohol abuse and dependence
CPT/HCPCS: 33208; 33210; 36415; 71045; 71046; 80048; 80053; 80061; 83735; 84439; 84443; 84484; 85025; 85610; 85730; 93005; 93306; 96365; 96375; 99285

== ENCOUNTER → 2020-06-09 | Outpatient (CLI) | payer BC, OTHER ==
--- NOTE | 2020-06-09 17:29 | CONS ---
CONSULTATION DATE OF SERVICE: 06/09/2020 This 54-year-old gentleman has been evaluated in [facility] for possible obstructive sleep apnea-hypopnea syndrome. 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 Consequently his sleep schedule on working days is from 11 a.m. until 3 p.m. On days off, he sleeps from 4 a.m. until 9 a.m. He has a TV set in the bedroom. He usually sleeps on his back. He has extremely loud snoring and witnessed episodes of stopped breathing during sleep. He wakes up from sleep 5 times with nocturia. After sleep, the patient wakes up tired, has difficulties paying attention, falling asleep during the day, has problems with memory, concentration, irritability and anxiety. [place] Sleepiness Scale is significantly increased at 14. PAST MEDICAL HISTORY: Positive for hypertension, hyperlipidemia, headaches, arthritis, diabetes mellitus, hypothyroidism, laryngeal carcinoma treated by radiation therapy. PAST SURGICAL HISTORY: Cholecystectomy. MEDICATIONS: 1. Metformin 500 mg once a day. 2. Amlodipine once a day. 3. Hydrochlorothiazide 25 mg once a day. 4. Furosemide 20 mg once a day. 5. Levothyroxine 25 mcg once a day. 6. Allopurinol 100 mg once a day. 7. Aspirin 81 mg once a day. 8. Vitamin D, C, zinc supplement. SOCIAL HISTORY: Positive for smoking for many years up to 2 packs a day. Quit 4 years ago. Alcohol consumption: none at the present time. FAMILY HISTORY: Heart problems, crib . REVIEW OF SYSTEMS: Multiple awakenings from sleep 5 times with nocturia, significant sleepiness. PHYSICAL EXAMINATION: GENERAL: A pleasant gentleman without distress. VITAL SIGNS: BP 147/78, HR 75, RR 15, height 5 feet 6-1/4 inches, weight 351.6 pounds, temperature 98.4, oxygen saturation at room air 94%. HEENT: PERRLA, EOMI. Evaluation of oropharynx showed tongue protrudes midline. Extremely low position of soft palate. Mallampati IV. NECK: Supple. No JVD. Thyroid is not palpable. Extremely wide neck at 21-1/2 inches in circumference. LUNGS: Clear to percussion and to auscultation. Good air exchange. No wheezing or rhonchi. HEART: S1, S2 regular. No murmurs, gallops or rubs. ABDOMEN: Obese. EXTREMITIES: No clubbing or cyanosis. INDUSTRIAL SERVICE TECHNICIAN: Awake, alert, and oriented X3. Cranial nerves 2 to 7 intact. There is no fasciculation or atrophy. noted. No focal deficits observed. IMPRESSION: 1. Loud snoring, witnessed episodes of stopped breathing during sleep, extremely low position of soft palate, extremely wide neck, excessive daytime sleepiness, [place] Sleepiness Scale 14; obstructive sleep apnea-hypopnea syndrome, probably severe. 2. Obesity. BMI 56.6. 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 4. Hypertension. 5. Hyperlipidemia. 6. Headaches. 7. History of arthritis. 8. Diabetes mellitus. 9. Hypothyroidism. 10.History of laryngeal carcinoma treated by radiation therapy. 11.Status post cholecystectomy. PLAN: 1. Polysomnography for evaluation of patient's breathing during sleep. 2. CPAP/BiPAP titration if sleep study confirms obstructive sleep apnea-hypopnea syndrome. 3. Preferable position during sleep on the side. 4. No driving if patient feels any sleepiness. 5. I will see patient for follow up visit to explain results of testing and following plan. Thank you very much for referring this patient for consultation. Sincerely, Stephen Portillo MD, PhD, FAASM Diplomat of [place] [employer] [place] [employer] [facility] [place] MMALEJAL / JOSE ANGEL: [id number] /
== END | disposition home or self-care (01) ==
LOC: SLEEP 15:33
PROVIDERS: ATTEND Internal Medicine
DX: G47.33 Obstructive sleep apnea (adult) (pediatric) (principal); E66.9 Obesity, unspecified; I10 Essential (primary) hypertension; E78.5 Hyperlipidemia, unspecified; R51.9 Headache, unspecified; E11.9 Type 2 diabetes mellitus without complications; E03.9 Hypothyroidism, unspecified; Z85.21 Personal history of malignant neoplasm of larynx; Z90.49 Acquired absence of other specified parts of digestive tract; Z68.43 Body mass index [BMI] 50.0-59.9, adult; Z87.39 Personal history of other diseases of the musculoskeletal system and connective tissue
CPT/HCPCS: 99211

== ENCOUNTER 2022-05-05 13:31 | Inpatient (IN) | payer BC, OTHER ==
[2022-05-05] MEDS ORDERED: IPRATROPIUM-ALBUTEROL 3 ML NEB INHALATION STA (13:58)
--- NOTE | 2022-05-05 14:02 | ED ---
General Adult HPI - General Chief complaint: Shortness of Breath Stated complaint: SOB Time Seen by Provider: 05/05/22 13:51 Source: patient, family, RN notes reviewed Mode of arrival: wheelchair Limitations: no limitations - History of Present Illness Initial comments: Patient is a pleasant 56-year-old male presenting to the emergency department with difficulty in breathing. Onset of symptoms was less than a week ago. Symptoms do worsen with exertion. Patient has mild congestion in his throat. Patient does have history of previous throat cancer however this has been fully treated. No chest congestion, minimal cough. No nasal or sinus congestion. Patient has chronic lymphedema, no increased from chronic swelling. No calf pain. No history of similar symptoms previously. Patient does feel significantly improved with oxygen even during history taking. - Related Data Home Medications Medication Instructions Recorded Confirmed allopurinoL [Zyloprim] 100 mg PO DAILY 09/01/13 05/05/22 metFORMIN HCL [Glucophage] 1,000 mg PO DAILY 09/01/13 05/05/22 amLODIPine BESYLATE/BENAZEPRIL 1 cap PO DAILY 10/22/13 05/05/22 [Lotrel 5-10 MG] Furosemide [Lasix] 20 mg PO DAILY 03/07/18 05/05/22 Ibuprofen [Motrin] 600 mg PO TID PRN 03/07/20 05/05/22 Multivit-Min/FA/Lycopen/Lutein 1 tab PO DAILY 03/07/20 05/05/22 [Centrum Silver Men Tablet] Ascorbic Acid [Vitamin C] 1,000 mg PO DAILY 05/05/22 05/05/22 Cholecalciferol [Vitamin D3 (125 125 mcg PO DAILY 05/05/22 05/05/22 Mcg = 5000 Iu)] Levothyroxine Sodium [Synthroid] 125 mcg PO DAILY 05/05/22 05/05/22 Melatonin 10 mg PO HS PRN 05/05/22 05/05/22 carvediloL [Coreg] 12.5 mg PO DAILY 05/05/22 05/05/22 hydroCHLOROthiazide [Hydrodiuril] 50 mg PO DAILY 05/05/22 05/05/22 traZODone HCL [Desyrel] 100 mg PO HS PRN 05/05/22 05/05/22 Previous Rx's Medication Instructions Recorded Aspirin EC [Ecotrin Low Dose] 81 mg PO DAILY #30 tablet. 03/10/20 Allergies Allergy/AdvReac Type Severity Reaction Status Date / Time penicillin G Allergy Severe Anaphylaxis Verified 05/05/22 14:54 Review of Systems ROS Statement: Those systems with pertinent positive or pertinent negative responses have been documented in the HPI. ROS Other: All systems not noted in ROS Statement are negative. Constitutional: Denies: fever Eyes: Denies: eye pain ENT: Denies: ear pain Respiratory: Reports: as per HPI, dyspnea. 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, elevated uric acid level, occasional back pain, arthritis bilateral hands/L shoulder, L/R leg lymphedema but worse in R leg History of Any Multi-Drug Resistant Organisms: MRSA Date of last positivie culture/infection: 06/22/14 MDRO Source:: RT LEG Past Surgical History: Cholecystectomy, Pacemaker Additional Past Surgical History / Comment(s): Vocal cord bx Past Anesthesia/Blood Transfusion Reactions: No Reported Reaction Past Psychological History: No Psychological Hx Reported Smoking Status: Former smoker Past Alcohol Use History: None Reported, Occasional Past Drug Use History: None Reported - Past Family History Mother Family Medical History: No Reported History Additional Family Medical History / Comment(s): Mother is healthy and is 76yrs old. Brother(s) Additional Family Medical History / Comment(s): Patient is a total of 5 siblings and one brother from liver cirrhosis from alcoholism. Patient has one son with no major medical problems. Father Sister(s) Family Medical History: Cancer Additional Family Medical History / Comment(s): Father at 57yrs from lung cancer. He was a smoker. General Exam Limitations: no limitations General appearance: alert, in no apparent distress, other (Cyanotic appearance improves with oxygen) Head exam: Present: normocephalic Eye exam: Present: normal appearance Neck exam: Present: normal inspection Respiratory exam: Present: wheezes Cardiovascular Exam: Present: regular rate, normal rhythm GI/Abdominal exam: Present: soft. Absent: tenderness Extremities exam: Present: pedal edema. Absent: calf tenderness Back exam: Present: normal inspection Neurological exam: Present: alert Psychiatric exam: Present: normal affect, normal mood Skin exam: Present: cyanosis Course Vital Signs 05/05/22 05/05/22 05/05/22 13:44 14:47 15:08 Temperature 97.5 F L Pulse Rate 84 76 Respiratory 24 Rate Blood Pressure 138/87 O2 Sat by Pulse 82 L 92 L Oximetry 05/05/22 05/05/22 05/05/22 15:21 15:47 16:15 Temperature Pulse Rate 75 72 Respiratory 14 Rate Blood Pressure 129/98 O2 Sat by Pulse 92 L 97 Oximetry 05/05/22 05/05/22 17:39 18:59 Temperature Pulse Rate 70 84 Respiratory 18 18 Rate Blood Pressure O2 Sat by Pulse 92 L 90 L Oximetry EKG Findings - EKG Results: EKG: interpreted by ERMD (Atrial rhythm rate 83. Right access. Incomplete right bundle-branch block. LVH. Q waves V1 to V3. No acute ST change.) Medical Decision Making - Medical Decision Making Patient was reevaluated and updated. Pulse ox is upper 80s on 5 L and switched to high flow nasal cannula. Patient has RSV infection, likely viral pneumonia however will be covered with antibiotics pending further evaluation. Case was discussed with practitioner Cherry, covering with Dr. Teague, who will admit covering Dr. Calvo. Was pt. sent in by a medical professional or institution (, PA, [employer], urgent care, hospital, or senior care...) When possible be specific @ -[No] Did you speak to anyone other than the patient for history (EMS, parent, family, police, friend...)? What history was obtained from this source @ -Family present and helps provide history Did you review nursing and triage notes (agree or disagree)? Why? @ -[I reviewed and agree with nursing and triage notes] Were old charts reviewed (outside hosp., previous admission, EMS record, old EKG, old radiological studies, urgent care reports/EKG's, senior care records)? Report findings @ -[No old charts were reviewed] Differential Diagnosis (chest pain, altered mental status, abdominal pain women, abdominal pain men, vaginal bleeding, weakness, fever, dyspnea, syncope, headache, dizziness, GI bleed, back pain, seizure, CVA, palpatations, mental health)? @ -Differential Dyspnea: Coronary syndrome, arrhythmia, tamponade, asthma, COPD, pulmonary embolism, pneumonia, pneumothorax, pulmonary effusion, anaphylaxis, diabetic ketoacidosis, flailed chest, pulmonary contusion, diaphragmatic rupture, anemia, neuromuscular, this is not meant to be an all-inclusive list. EKG interpreted by me (3pts min.). @ -[As above] X-rays interpreted by me (1pt min.). @ -Yes as above CT interpreted by me (1pt min.). @ -Reviewed report U/S interpreted by me (1pt. min.). @ -[None done] What testing was considered but not performed or refused? (CT, X-rays, U/S, labs)? Why? @ -[None] What meds were considered but not given or refused? Why? @ -[None] Did you discuss the management of the patient with other professionals (professionals i.e. , PA, [employer], lab, RT, psych nurse, social services manager, cooker chip, teacher, global safety officer, lead case manager)? Give summary @ -Case discussed with practitioner Cherry Was smoking cessation discussed for >3mins.? @ -[No] Was critical care preformed (if so, how long)? @ -[No] Were there social determinants of health that impacted care today? How? (Homelessness, low income, unemployed, alcoholism, drug addiction, transportation, low edu. Level, literacy, decrease access to med. care, nursing home, rehab)? @ -[No] Was there de-escalation of care discussed even if they declined (Discuss DNR or withdrawal of care, Hospice)? DNR status @ -[No] What co-morbidities impacted this encounter? (DM, HTN, Smoking, COPD, CAD, Cancer, CVA, ARF, Chemo, Hep., AIDS, mental health diagnosis, sleep apnea, mor bid obesity)? @ -[None] Was patient admitted / discharged? Hospital course, mention meds given and route, prescriptions, significant lab abnormalities, going to OR and other pertinent info. @ -Admitted Undiagnosed new problem with uncertain prognosis? @ -[No] Drug Therapy requiring intensive monitoring for toxicity (Heparin, Nitro, Insulin, Cardizem)? @ -[No] Were any procedures done? @ -[No] Diagnosis/symptom? @ -RSV pneumonia Acute, or Chronic, or Acute on Chronic? @ -Acute Uncomplicated (without systemic symptoms) or Complicated (systemic symptoms)? @ -Complicated causing hypoxia Side effects of treatment? @ -[No] Exacerbation, Progression, or Severe Exacerbation? @ -[No] Poses a threat to life or bodily function? How? (Chest pain, USA, PA, pneumonia, PE, COPD, DKA, ARF, appy, cholecystitis, CVA, Diverticulitis, Homicidal, Suicidal, threat to staff... and all critical care pts) @ -Causing hypoxia, does pose a threat to life - Lab Data Result diagrams: 05/05/22 15:38 05/05/22 15:38 Lab Results 05/05/22 05/05/22 05/05/22 Range/Units 13:50 14:28 15:38 WBC 7.0 (3.8-10.6) k/uL RBC 6.47 H (4.30-5.90) m/uL Hgb 19.1 H* (13.0-17.5) gm/dL Hct 59.7 H* (39.0-53.0) % MCV 92.3 (80.0-100.0) fL MCH 29.5 (25.0-35.0) pg MCHC 32.0 (31.0-37.0) g/dL RDW 16.2 H (11.5-15.5) % Plt Count 153 (150-450) k/uL MPV 9.3 Neutrophils % (Manual) 73 % Lymphocytes % (Manual) 9 % Monocytes % (Manual) 17 % Eosinophils % (Manual) 1 % Neutrophils # (Manual) 5.11 (1.3-7.7) k/uL Lymphocytes # (Manual) 0.63 L (1.0-4.8) k/uL Monocytes # (Manual) 1.19 H (0-1.0) k/uL Eosinophils # (Manual) 0.07 (0-0.7) k/uL Nucleated RBCs 0 (0-0) /100 WBC Manual Slide Review Performed Hypochromasia Moderate Anisocytosis Slight PT (9.0-12.0) sec INR (<1.2) APTT (22.0-30.0) sec D-Dimer (<0.60) mg/L FEU Sodium (137-145) mmol/L Potassium (3.5-5.1) mmol/L Chloride (98-107) mmol/L Carbon Dioxide (22-30) mmol/L Anion Gap mmol/L BUN (9-20) mg/dL Creatinine (0.66-1.25) mg/dL Est GFR (CKD-EPI)AfAm (>60 ml/min/1.73 sqM) Est GFR (CKD-EPI)NonAf (>60 ml/min/1.73 sqM) Glucose (74-99) mg/dL Plasma Lactic Acid Arcenio 1.4 (0.7-2.0) mmol/L Calcium (8.4-10.2) mg/dL Total Bilirubin (0.2-1.3) mg/dL AST (17-59) U/L ALT (4-49) U/L Alkaline Phosphatase (38-126) U/L Troponin I (0.000-0.034) ng/mL NT-Pro-B Natriuret Pep pg/mL Total Protein (6.3-8.2) g/dL Albumin (3.5-5.0) g/dL Influenza Type A (PCR) Not Detected (Not Detectd) Influenza Type B (PCR) Not Detected (Not Detectd) RSV (PCR) Detected A (Not Detectd) SARS-CoV-2 (PCR) Not Detected (Not Detectd) 05/05/22 05/05/22 05/05/22 Range/Units 15:38 15:38 15:38 WBC (3.8-10.6) k/uL RBC (4.30-5.90) m/uL Hgb (13.0-17.5) gm/dL Hct (39.0-53.0) % MCV (80.0-100.0) fL MCH (25.0-35.0) pg MCHC (31.0-37.0) g/dL RDW (11.5-15.5) % Plt Count (150-450) k/uL MPV Neutrophils % (Manual) % Lymphocytes % (Manual) % Monocytes % (Manual) % Eosinophils % (Manual) % Neutrophils # (Manual) (1.3-7.7) k/uL Lymphocytes # (Manual) (1.0-4.8) k/uL Monocytes # (Manual) (0-1.0) k/uL Eosinophils # (Manual) (0-0.7) k/uL Nucleated RBCs (0-0) /100 WBC Manual Slide Review Hypochromasia Anisocytosis PT (9.0-12.0) sec INR (<1.2) APTT (22.0-30.0) sec D-Dimer (<0.60) mg/L FEU Sodium 136 L (137-145) mmol/L Potassium 4.7 (3.5-5.1) mmol/L Chloride 96 L (98-107) mmol/L Carbon Dioxide 36 H (22-30) mmol/L Anion Gap 4 mmol/L BUN 49 H (9-20) mg/dL Creatinine 0.88 (0.66-1.25) mg/dL Est GFR (CKD-EPI)AfAm >90 (>60 ml/min/1.73 sqM) Est GFR (CKD-EPI)NonAf >90 (>60 ml/min/1.73 sqM) Glucose 97 (74-99) mg/dL Plasma Lactic Acid Arcenio (0.7-2.0) mmol/L Calcium 8.3 L (8.4-10.2) mg/dL Total Bilirubin 1.3 (0.2-1.3) mg/dL AST 46 (17-59) U/L ALT 23 (4-49) U/L Alkaline Phosphatase 76 (38-126) U/L Troponin I <0.012 (0.000-0.034) ng/mL NT-Pro-B Natriuret Pep 1110 pg/mL Total Protein 6.7 (6.3-8.2) g/dL Albumin 3.6 (3.5-5.0) g/dL Influenza Type A (PCR) (Not Detectd) Influenza Type B (PCR) (Not Detectd) RSV (PCR) (Not Detectd) SARS-CoV-2 (PCR) (Not Detectd) 05/05/22 Range/Units 15:38 WBC (3.8-10.6) k/uL RBC (4.30-5.90) m/uL Hgb (13.0-17.5) gm/dL Hct (39.0-53.0) % MCV (80.0-100.0) fL MCH (25.0-35.0) pg MCHC (31.0-37.0) g/dL RDW (11.5-15.5) % Plt Count (150-450) k/uL MPV Neutrophils % (Manual) % Lymphocytes % (Manual) % Monocytes % (Manual) % Eosinophils % (Manual) % Neutrophils # (Manual) (1.3-7.7) k/uL Lymphocytes # (Manual) (1.0-4.8) k/uL Monocytes # (Manual) (0-1.0) k/uL Eosinophils # (Manual) (0-0.7) k/uL Nucleated RBCs (0-0) /100 WBC Manual Slide Review Hypochromasia Anisocytosis PT 13.8 H (9.0-12.0) sec INR 1.4 H (<1.2) APTT 25.4 (22.0-30.0) sec D-Dimer 2.23 H (<0.60) mg/L FEU Sodium (137-145) mmol/L Potassium (3.5-5.1) mmol/L Chloride (98-107) mmol/L Carbon Dioxide (22-30) mmol/L Anion Gap mmol/L BUN (9-20) mg/dL Creatinine (0.66-1.25) mg/dL Est GFR (CKD-EPI)AfAm (>60 ml/min/1.73 sqM) Est GFR (CKD-EPI)NonAf (>60 ml/min/1.73 sqM) Glucose (74-99) mg/dL Plasma Lactic Acid Arcenio (0.7-2.0) mmol/L Calcium (8.4-10.2) mg/dL Total Bilirubin (0.2-1.3) mg/dL AST (17-59) U/L ALT (4-49) U/L Alkaline Phosphatase (38-126) U/L Troponin I (0.000-0.034) ng/mL NT-Pro-B Natriuret Pep pg/mL Total Protein (6.3-8.2) g/dL Albumin (3.5-5.0) g/dL Influenza Type A (PCR) (Not Detectd) Influenza Type B (PCR) (Not Detectd) RSV (PCR) (Not Detectd) SARS-CoV-2 (PCR) (Not Detectd) - Radiology Data Interpreted by me: Chest x-ray concerning for right lower lobe infiltrate Disposition Clinical Impression: RSV infection, Pneumonia Disposition: ADMITTED IP TO THIS HOSP Condition: Serious Is patient prescribed a controlled substance at d/c from ED?: No Referrals: Tray Murrieta MD [Primary Care Provider] - 1-2 days Time of Disposition: 19:21
--- NOTE | 2022-05-05 14:55 | XR ---
EXAMINATION TYPE: XR chest 2V DATE OF EXAM: 05/05/2022 COMPARISON: 03/10/2020 INDICATION: Difficulty breathing TECHNIQUE: Single frontal view of the chest is obtained. FINDINGS: The heart size is normal. The pulmonary vasculature is normal. Right lower lobe infiltrate is present. Correlate for atelectasis and pneumonia. Follow-up is recomme nded. IMPRESSION: 1. Right lower lung field infiltrate. Correlate for atelectasis and pneumonia. Follow-up is recommend ed.
[2022-05-05 15:57] LABS: Anisocytosis Slight; Hypochromasia Moderate; MCH 29.5 pg (25.0-35.0); MCV 92.3 fL (80.0-100.0); Mean Platelet Volume 9.3; Platelet Count 153 k/uL (150-450); RBC 6.47 m/uL (4.30-5.90); RDW 16.2 % (11.5-15.5)
[2022-05-05 16:03] LABS: HCT 59.7 % (39.0-53.0); HGB 19.1 gm/dL (13.0-17.5)
[2022-05-05 16:16] LABS: ALT 23 U/L (4-49); AST 46 U/L (17-59); African American GFR (CKD) >90 (>60 ml/min/1.73 sqM); Albumin 3.6 g/dL (3.5-5.0); Alkaline Phosphatase 76 U/L (38-126); Anion Gap 4 mmol/L; Blood Urea Nitrogen 49 mg/dL (9-20); Calcium 8.3 mg/dL (8.4-10.2); Carbon Dioxide 36 mmol/L (22-30); Chloride 96 mmol/L (98-107); Glucose 97 mg/dL (74-99); Non-African American GFR(CKD) >90 (>60 ml/min/1.73 sqM); Sodium 136 mmol/L (137-145); Total Bilirubin 1.3 mg/dL (0.2-1.3); Total Protein 6.7 g/dL (6.3-8.2)
[2022-05-05 16:21] LABS: INR 1.4 (<1.2); Partial Thromboplastin Time 25.4 sec (22.0-30.0)
[2022-05-05 16:31] LABS: Potassium 4.7 mmol/L (3.5-5.1)
[2022-05-05 16:47] LABS: Eosinophils # (M) 0.07 k/uL (0-0.7); Lymphocytes # (M) 0.63 k/uL (1.0-4.8); Monocytes # (M) 1.19 k/uL (0-1.0); Neutrophils # (M) 5.11 k/uL (1.3-7.7); Neutrophils % (M) 73 %; Nucleated Red Blood Cells 0 /100 WBC (0-0); Total Cells Counted 100
[2022-05-05] MEDS ORDERED: SODIUM CHLORIDE 0.9% 1,000 ML IV STA (16:50)
[2022-05-05 17:06] LABS: Prothrombin Time 13.8 sec (9.0-12.0)
--- NOTE | 2022-05-05 18:52 | CT ---
EXAMINATION TYPE: CT angio chest DATE OF EXAM: 05/05/2022 COMPARISON: 04/05/2018 HISTORY: SOB, r/o PE CT DLP: 1147.3 mGycm Automated exposure control for dose reduction was used. CONTRAST: Performed with IV Contrast, patient injected with 100 mL of Isovue 370. There are Three-D postprocessed images. Heart is enlarged. There is airspace consolidation and atelectasis in the right middle lobe. There is some mild atelectasis at the left posterior lung base. No pericardial effusion. There are multiple enlarged mediastinal and bronchial lymph nodes up to 2 cm. Thoracic aorta is intac t. No aneurysm or dissection. The ascending aorta measures 3.9 cm. There is no evidence of filling de fect in the pulmonary arteries. The thoracic spine is intact. No compression fracture. Sternum is intact. IMPRESSION: There is some infiltrate and atelectasis in the right middle lobe and left lower lobe posteriorly. Me diastinal and mild bronchial adenopathy. No evidence of pulmonary embolism. Adenopathy is nonspecific and appears new compared to old exam. Pulmonary infiltrates are new compare d to the old exam.
[2022-05-05] MEDS ORDERED: AZITHROMYCIN 500 MG in SODIUM CHLORIDE 0.9% 250 ML IVPB STA (19:24)
[2022-05-05] MEDS ORDERED: PNEUMONIA PROTOCOL UTILIZED 1 EACH MISC PO PRN (19:24)
[2022-05-05] MEDS ORDERED: IPRATROPIUM-ALBUTEROL 3 ML NEB INHALATION PRN (19:24)
[2022-05-05] MEDS ORDERED: LEVOFLOXACIN 750MG-D5W PMX 750 MG in DEXTROSE/WATER 1 150ML.BAG IVPB STA (19:26)
[2022-05-05] MEDS ORDERED: traZODone HCL 100 MG TAB PO PRN (19:27)
[2022-05-05] MEDS ORDERED: MELATONIN 5 MG TABLET PO PRN (19:27)
[2022-05-05] MEDS ORDERED: IBUPROFEN 600 MG TAB PO PRN (19:27)
[2022-05-05] MEDS: SODIUM CHLORIDE 0.9% 1,000 ML IV SCH (22:06)
[2022-05-05] MEDS: IPRATROPIUM-ALBUTEROL 3 ML NEB INHALATION SCH (23:06)
[2022-05-06] MEDS: SODIUM CHLORIDE 0.9% 1,000 ML IV SCH ×2 (06:47→16:23)
[2022-05-06] MEDS: LEVOTHYROXINE 125 MCG TAB PO SCH ×2 (06:54→07:42)
--- NOTE | 2022-05-06 07:16 | XR ---
EXAMINATION TYPE: XR chest 1V portable DATE OF EXAM: 05/06/2022 CLINICAL HISTORY: Difficulty breathing and pneumonia progress study. TECHNIQUE: Single AP portable upright view of the chest is obtained. COMPARISON: Chest x-ray and CT chest from one day earlier FINDINGS: Exam are suboptimal due to large body habitus. Persistent cardiomegaly with dual lead pace maker. Persistent right middle lobe consolidation and/or atelectasis. Underlying scoliosis redemonstr ated. IMPRESSION: Suboptimal study. Cardiomegaly with right middle lobe consolidation and/or atelectasis re gisele present. No significant change from one day earlier.
[2022-05-06] MEDS: metFORMIN 500 MG TAB PO SCH (07:41)
[2022-05-06] MEDS: carvediloL 12.5 MG TAB PO SCH (07:42)
[2022-05-06] MEDS ORDERED: AZITHROMYCIN 500 MG in SODIUM CHLORIDE 0.9% 250 ML IVPB SCH (10:00)
[2022-05-06] MEDS: IPRATROPIUM-ALBUTEROL 3 ML NEB INHALATION SCH ×4 (10:01→20:06)
[2022-05-06] MEDS: FUROSEMIDE 20 MG TAB PO SCH (10:42)
[2022-05-06] MEDS: MULTIVITAMINS, THERA 1 EACH TAB PO SCH (10:42)
[2022-05-06] MEDS: ASCORBIC ACID 500 MG TAB PO SCH (10:42)
[2022-05-06] MEDS: amLODIPine 5 MG TAB PO SCH (10:43)
[2022-05-06] MEDS: allopurinoL 100 MG TAB PO SCH (10:43)
[2022-05-06] MEDS: CHOLECALCIFEROL 125 MCG (5000 IU) TABLET PO SCH (10:43)
[2022-05-06] MEDS: ASPIRIN 81 MG PO SCH (10:43)
[2022-05-06] MEDS: lisinopriL 10 MG TAB PO SCH (10:43)
--- NOTE | 2022-05-06 10:45 | P.CNPUL ---
History of Present Illness Consult date: 05/06/22 Reason for consult: dyspnea History of present illness: This is a morbidly obese 56-year-old male patient, diabetic with obvious features of obstructive sleep apnea and previous history of pacemaker insertion for second-degree AV block and previous history of throat cancer treated with radiation therapy. The patient has had previous Covid 19 infection with adequate recovery. The patient presented to the hospital because of worsening shortness of breath and cough and congestion has been going on for almost a week. No fever. He had increased chest congestion. He also has some sinus and nasal congestion using nasal saline rinses. He does have chronic lymphedema lower oximetry is bilaterally. No calf pain or tenderness. He presented to the emergency and the patient was found to be afebrile, hemodynamically stable, he was hypoxic and patient is currently is on 8 L of oxygen by nasal cannula. His WBC count is at 7 with a hemoglobin 19.1 and a platelet count of 153. INR was 1.4 with a PT of 15.8 and a d-dimer was 2.23 with a PTT of 25.4. Sodium is at 136, BUN is at 49 with a creatinine of 0.8 and a potassium level is at 4.7. Troponins are negative. ProBNP level is 1110. Patient checks positive for RSV. CT angiogram of the chest was done and it showed is some infiltrate/atelectasis in the right middle lobe and left lower lobe posteriorly. Mediastinal and mild parabronchial lymphadenopathy was also seen. The mediastinal lymphadenopathy was essentially nonspecific. The patient had a lactic acid level of 1.4. Re check positive for RSV. Currently is on bronchodilators. He was also started on broad-spectrum antibiotics with accommodation of Rocephin and Zithromax. Review of Systems Constitutional: Reports daytime sleepiness, Reports fatigue, Reports lethargy, Reports weakness, Reports weight gain Eyes: denies as per HPI, denies blurred vision, denies bulging eye, denies decreased vision, denies diplopia, denies discharge, denies dry eye, denies irritation, denies itching, denies pain, denies photophobia, denies loss of peripheral vision, denies loss of vision, denies tunnel vision/blind spots Ears: deny: decreased hearing, ear discharge, earache, tinnitus Ears, nose, mouth and throat: Reports as per HPI Breasts: absent: as per HPI, gynecomastia Cardiovascular: Reports decreased exercise tolerance, Reports dyspnea on exertion, Reports leg edema Respiratory: Reports congestion, Reports cough, Reports cough with sputum, Reports dyspnea, Reports wheezing Gastrointestinal: Reports as per HPI Genitourinary: Reports as per HPI Musculoskeletal: Reports as per HPI Musculoskeletal: bilateral: ankle swelling, absent: ankle pain, ankle stiffness Integumentary: Reports as per HPI Neurological: Reports as per HPI Psychiatric: Reports as per HPI Endocrine: Reports as per HPI Hematologic/Lymphatic: Reports as per HPI Allergic/Immunologic: Reports as per HPI Past Medical History Past Medical History: Cancer, Diabetes Mellitus, Hypertension, Musculoskeletal Disorder, Osteoarthritis (OA), Sleep Apnea/CPAP/BIPAP, Thyroid Disorder, Vascular Disorder Additional Past Medical History / Comment(s): Vocal cord cancer dx. 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, elevated uric acid level, occasional back pain, arthritis bilateral hands/L shoulder, L/R leg lymphedema but worse in R leg History of Any Multi-Drug Resistant Organisms: MRSA Date of last positivie culture/infection: 06/22/14 MDRO Source:: RT LEG Past Surgical History: Cholecystectomy, Pacemaker Additional Past Surgical History / Comment(s): Vocal cord bx Past Anesthesia/Blood Transfusion Reactions: No Reported Reaction Past Psychological History: No Psychological Hx Reported Smoking Status: Former smoker Past Alcohol Use History: None Reported, Occasional Past Drug Use History: None Reported - Past Family History Mother Family Medical History: No Reported History Additional Family Medical History / Comment(s): Mother is healthy and is 76yrs old. Brother(s) Additional Family Medical History / Comment(s): Patient is a total of 5 siblings and one brother from liver cirrhosis from alcoholism. Patient has one son with no major medical problems. Father Sister(s) Family Medical History: Cancer Additional Family Medical History / Comment(s): Father at 57yrs from lung cancer. He was a smoker. Medications and Allergies Home Medications Medication Instructions Recorded Confirmed Type allopurinoL [Zyloprim] 100 mg PO DAILY 09/01/13 05/05/22 History metFORMIN HCL [Glucophage] 1,000 mg PO DAILY 09/01/13 05/05/22 History amLODIPine BESYLATE/BENAZEPRIL 1 cap PO DAILY 10/22/13 05/05/22 History [Lotrel 5-10 MG] Furosemide [Lasix] 20 mg PO DAILY 03/07/18 05/05/22 History Ibuprofen [Motrin] 600 mg PO TID PRN 03/07/20 05/05/22 History Multivit-Min/FA/Lycopen/Lutein 1 tab PO DAILY 03/07/20 05/05/22 History [Centrum Silver Men Tablet] Aspirin EC [Ecotrin Low Dose] 81 mg PO DAILY #30 tablet. 03/10/20 05/05/22 Rx Ascorbic Acid [Vitamin C] 1,000 mg PO DAILY 05/05/22 05/05/22 History Cholecalciferol [Vitamin D3 (125 125 mcg PO DAILY 05/05/22 05/05/22 History Mcg = 5000 Iu)] Levothyroxine Sodium [Synthroid] 125 mcg PO DAILY 05/05/22 05/05/22 History Melatonin 10 mg PO HS PRN 05/05/22 05/05/22 History carvediloL [Coreg] 12.5 mg PO DAILY 05/05/22 05/05/22 History hydroCHLOROthiazide [Hydrodiuril] 50 mg PO DAILY 05/05/22 05/05/22 History traZODone HCL [Desyrel] 100 mg PO HS PRN 05/05/22 05/05/22 History Allergies Allergy/AdvReac Type Severity Reaction Status Date / Time penicillin G Allergy Severe Anaphylaxis Verified 05/05/22 14:54 Physical Exam Vitals: Vital Signs Temp Pulse Resp BP Pulse Ox 05/06/22 07:40 67 22 117/72 93 L 05/06/22 06:45 65 16 135/80 92 L 05/06/22 04:59 84 05/06/22 04:48 80 05/06/22 00:40 70 16 140/89 92 L 05/05/22 20:07 73 18 137/80 94 L 05/05/22 18:59 84 18 90 L 05/05/22 17:39 70 18 92 L 05/05/22 16:15 72 14 129/98 97 05/05/22 15:47 92 L 05/05/22 15:21 75 05/05/22 15:08 76 05/05/22 14:47 92 L 05/05/22 13:44 97.5 F L 84 24 138/87 82 L General Appearance: Alert, cooperative, no distress, appears stated age. Morbid ly obese breathing is nonlabored and the patient has been on 8 L of oxygen by nasal cannula Head exam was generally normal. There was no scleral icterus or corneal arcus. Mucous membranes were moist. Neck HEENT: Supple, no lymphadenopathy, no thyroid enlargement, no carotid bruits. Lungs: Diminished breath sounds bilaterally along with exhalation wheezes and prolonged. Chest Wall: Chest wall normal expansion with deep inspiration no tenderness and no deformity was found on exam, no costochondral pain or discomfort. Heart: Regular rate and rhythm, S1, S2 normal, no murmur, rub or gallop. Back: Symmetric, no curvature, ROM normal, no CVA tenderness. Abdomen: Soft, non-tender, bowel sounds active all four quadrants, no masses, no organomegaly. Extremities: Extremities normal, atraumatic, no cyanosis or edema. Significant change in color of the lower extremity from the knee down with decreased pulses dorsalis pedis and posterior tibial. Chronic lymphedema involving the lower extremities bilaterally Pulses: 2+ and symmetric. Skin: Skin color, texture, tugor normal, no rashes or lesions. Neurologic: Alert oriented x3 cranial nerves II through XII intact, no motor deficit, no abnormal balance or gait. Results - Laboratory Findings CBC and BMP: 05/05/22 15:38 05/05/22 15:38 PT/INR, D-dimer PT 13.8 sec (9.0-12.0) H 05/05/22 15:38 INR 1.4 (<1.2) H 05/05/22 15:38 D-Dimer 2.23 mg/L FEU (<0.60) H 05/05/22 15:38 Abnormal lab findings: Abnormal Labs 05/05/22 05/05/22 05/05/22 14:28 15:38 15:38 RBC 6.47 H Hgb 19.1 H* Hct 59.7 H* RDW 16.2 H Lymphocytes # (Manual) 0.63 L Monocytes # (Manual) 1.19 H PT INR D-Dimer Sodium 136 L Chloride 96 L Carbon Dioxide 36 H BUN 49 H Calcium 8.3 L RSV (PCR) Detected A 05/05/22 15:38 RBC Hgb Hct RDW Lymphocytes # (Manual) Monocytes # (Manual) PT 13.8 H INR 1.4 H D-Dimer 2.23 H Sodium Chloride Carbon Dioxide BUN Calcium RSV (PCR) - Diagnostic Findings Chest x-ray: image reviewed CT scan - chest: image reviewed Assessment and Plan Plan: Acute RSV tracheobronchitis with secondary shortness of breath Acute hypoxic respiratory failure. The patient is currently on 8 L of oxygen by nasal cannula. Right middle lobe consolidation, consider atelectasis/mucous plug. Consider bacterial lobar consolidation/pneumonia. History of Secondary to AV block status post pacemaker implantation obstructive sleep apnea type 2 diabetes hypertension chronic edema and lymphedema hypothyroidism history of gout Acute RSV tracheobronchitis with reactive bronchospasm wheezing. Of concern is a right middle lobe consolidation which obviously brings or raises the concern for an underlying bacterial pneumonia also. Acute hypoxic respiratory failure currently on 8 L of O2 nasal cannula Morbid obesity with obvious features of obstructive sleep apnea Chronic erythrocytosis probably secondary erythrocytosis due to chronic hypoxemia and TELMA History of vocal cord cancer treated with radiation therapy back in 2018 Morbid obesity Chronic lymphedema lower extremities Diabetes mellitus type 2 History of thyroid disease History of pacemaker insertion for a second-degree AV block Chronic back pain and degenerative arthritis Plan We'll cover the patient with DuoNeb about treatments [id number] Start the patient on IV Solu-Medrol 60 mg every 6 hours Monitor the blood sugar and cover the patient with slight scale insulin coverage Continue Levaquin and discontinue Zithromax for now Resume all medications including oral Lasix IV fluids to KVO Provide the patient incentive spirometer Check pro calcitonin level Wean FiO2 to maintain a saturation above 90% Outpatien sleep study
[2022-05-06 12:06] LABS: Anisocytosis Slight; Basophils # (A) 0.1 k/uL (0-0.2); Basophils % (A) 2 %; Eosinophils # (A) 0.2 k/uL (0-0.7); Eosinophils % (A) 2 %; HGB 18.6 gm/dL (13.0-17.5); Hypochromasia Marked; Lymphocytes # (A) 0.5 k/uL (1.0-4.8); Lymphocytes % (A) 8 %; MCH 29.2 pg (25.0-35.0); MCHC 31.2 g/dL (31.0-37.0); MCV 93.4 fL (80.0-100.0); Mean Platelet Volume 9.5; Monocytes # (A) 0.7 k/uL (0-1.0); Monocytes % (A) 11 %; Neutrophils # (A) 4.7 k/uL (1.3-7.7); Neutrophils % (A) 73 %; Platelet Count 148 k/uL (150-450); RBC 6.38 m/uL (4.30-5.90); RDW 16.1 % (11.5-15.5); WBC 6.4 k/uL (3.8-10.6)
[2022-05-06 12:14] LABS: African American GFR (CKD) >90 (>60 ml/min/1.73 sqM); Anion Gap 7 mmol/L; Blood Urea Nitrogen 33 mg/dL (9-20); Calcium 8.3 mg/dL (8.4-10.2); Carbon Dioxide 34 mmol/L (22-30); Chloride 96 mmol/L (98-107); Glucose 113 mg/dL (74-99); Magnesium 2.1 mg/dL (1.6-2.3); Non-African American GFR(CKD) >90 (>60 ml/min/1.73 sqM); Potassium 4.3 mmol/L (3.5-5.1); Sodium 137 mmol/L (137-145)
[2022-05-06 12:23] LABS: HCT 59.6 % (39.0-53.0)
[2022-05-06] MEDS: methylPREDNISolone SOD SUCCI 125 MG/2 ML VIAL IV SCH ×3 (13:23→23:30)
--- NOTE | 2022-05-06 18:56 | P.HPIM ---
History of Present Illness H&P Date: 05/06/22 Chief Complaint: Shortness of breath 56-year-old male presenting to the emergency department with difficulty in breathing. Onset of symptoms was less than a week ago. Symptoms do worsen with exertion. Patient has mild congestion in his throat. Patient does have history of previous throat cancer however this has been fully treated. No chest congestion, minimal cough. No nasal or sinus congestion. Patient has chronic lymphedema, no increased from chronic swelling. No calf pain. No history of similar symptoms previously. Patient does feel significantly improved with oxygen even during history taking. WBC count is at 7 with a hemoglobin 19.1 and a platelet count of 153. INR was 1.4 with a PT of 15.8 and a d-dimer was 2.23 with a PTT of 25.4. Sodium is at 136, BUN is at 49 with a creatinine of 0.8 and a potassium level is at 4.7. Troponins are negative. ProBNP level is 1110. Patient checks positive for RSV. CT angiogram of the chest was done and it showed is some infiltrate/atelectasis in the right middle lobe and left lower lobe posteriorly. Mediastinal and mild parabronchial lymphadenopathy was also seen. The mediastinal lymphadenopathy was essentially nonspecific. The patient had a lactic acid level of 1.4. Recheck positive for RSV. Currently is on bronchodilators. He was also started on broad-spectrum antibiotics with accommodation of Rocephin and Zithromax. Past Medical History Past Medical History: Cancer, Diabetes Mellitus, Hypertension, Musculoskeletal Disorder, Osteoarthritis (OA), Sleep Apnea/CPAP/BIPAP, Thyroid Disorder, Vascular Disorder Additional Past Medical History / Comment(s): Vocal cord cancer dx. 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, elevated uric acid level, occasional back pain, arthritis bilateral hands/L shoulder, L/R leg lymphedema but worse in R leg History of Any Multi-Drug Resistant Organisms: MRSA Date of last positivie culture/infection: 06/22/14 MDRO Source:: RT LEG Past Surgical History: Cholecystectomy, Pacemaker Additional Past Surgical History / Comment(s): Vocal cord bx Past Anesthesia/Blood Transfusion Reactions: No Reported Reaction Past Psychological History: No Psychological Hx Reported Smoking Status: Former smoker Past Alcohol Use History: None Reported, Occasional Past Drug Use History: None Reported - Past Family History Mother Family Medical History: No Reported History Additional Family Medical History / Comment(s): Mother is healthy and is 76yrs old. Brother(s) Additional Family Medical History / Comment(s): Patient is a total of 5 siblings and one brother from liver cirrhosis from alcoholism. Patient has one son with no major medical problems. Father Sister(s) Family Medical History: Cancer Additional Family Medical History / Comment(s): Father at 57yrs from lung cancer. He was a smoker. Medications and Allergies Home Medications Medication Instructions Recorded Confirmed Type allopurinoL [Zyloprim] 100 mg PO DAILY 09/01/13 05/05/22 History metFORMIN HCL [Glucophage] 1,000 mg PO DAILY 09/01/13 05/05/22 History amLODIPine BESYLATE/BENAZEPRIL 1 cap PO DAILY 10/22/13 05/05/22 History [Lotrel 5-10 MG] Furosemide [Lasix] 20 mg PO DAILY 03/07/18 05/05/22 History Ibuprofen [Motrin] 600 mg PO TID PRN 03/07/20 05/05/22 History Multivit-Min/FA/Lycopen/Lutein 1 tab PO DAILY 03/07/20 05/05/22 History [Centrum Silver Men Tablet] Aspirin EC [Ecotrin Low Dose] 81 mg PO DAILY #30 tablet. 03/10/20 05/05/22 Rx Ascorbic Acid [Vitamin C] 1,000 mg PO DAILY 05/05/22 05/05/22 History Cholecalciferol [Vitamin D3 (125 125 mcg PO DAILY 05/05/22 05/05/22 History Mcg = 5000 Iu)] Levothyroxine Sodium [Synthroid] 125 mcg PO DAILY 05/05/22 05/05/22 History Melatonin 10 mg PO HS PRN 05/05/22 05/05/22 History carvediloL [Coreg] 12.5 mg PO DAILY 05/05/22 05/05/22 History hydroCHLOROthiazide [Hydrodiuril] 50 mg PO DAILY 05/05/22 05/05/22 History traZODone HCL [Desyrel] 100 mg PO HS PRN 05/05/22 05/05/22 History Allergies Allergy/AdvReac Type Severity Reaction Status Date / Time penicillin G Allergy Severe Anaphylaxis Verified 05/05/22 14:54 Physical Exam Vitals: Vital Signs Temp Pulse Resp BP Pulse Ox 05/06/22 07:40 67 22 117/72 93 L 05/06/22 06:45 65 16 135/80 92 L 05/06/22 04:59 84 05/06/22 04:48 80 05/06/22 00:40 70 16 140/89 92 L 05/05/22 20:07 73 18 137/80 94 L 05/05/22 18:59 84 18 90 L 05/05/22 17:39 70 18 92 L 05/05/22 16:15 72 14 129/98 97 05/05/22 15:47 92 L 05/05/22 15:21 75 05/05/22 15:08 76 05/05/22 14:47 92 L 05/05/22 13:44 97.5 F L 84 24 138/87 82 L General appearance: alert, in no apparent distress, other (Cyanotic appearance improves with oxygen) Head exam: Present: normocephalic Eye exam: Present: normal appearance Neck exam: Present: normal inspection Respiratory exam: Present: wheezes Cardiovascular Exam: Present: regular rate, normal rhythm GI/Abdominal exam: Present: soft. Absent: tenderness Extremities exam: Present: pedal edema. Absent: calf tenderness Back exam: Present: normal inspection Neurological exam: Present: alert Psychiatric exam: Present: normal affect, normal mood Skin exam: Present: cyanosis Results CBC & Chem 7: 05/06/22 11:24 05/06/22 11:24 Labs: Abnormal Lab Results - Last 24 Hours (Table) 05/05/22 05/05/22 05/05/22 Range/Units 14:28 15:38 15:38 RBC 6.47 H (4.30-5.90) m/uL Hgb 19.1 H* (13.0-17.5) gm/dL Hct 59.7 H* (39.0-53.0) % RDW 16.2 H (11.5-15.5) % Lymphocytes # (Manual) 0.63 L (1.0-4.8) k/uL Monocytes # (Manual) 1.19 H (0-1.0) k/uL PT (9.0-12.0) sec INR (<1.2) D-Dimer (<0.60) mg/L FEU Sodium 136 L (137-145) mmol/L Chloride 96 L (98-107) mmol/L Carbon Dioxide 36 H (22-30) mmol/L BUN 49 H (9-20) mg/dL Calcium 8.3 L (8.4-10.2) mg/dL RSV (PCR) Detected A (Not Detectd) 05/05/22 Range/Units 15:38 RBC (4.30-5.90) m/uL Hgb (13.0-17.5) gm/dL Hct (39.0-53.0) % RDW (11.5-15.5) % Lymphocytes # (Manual) (1.0-4.8) k/uL Monocytes # (Manual) (0-1.0) k/uL PT 13.8 H (9.0-12.0) sec INR 1.4 H (<1.2) D-Dimer 2.23 H (<0.60) mg/L FEU Sodium (137-145) mmol/L Chloride (98-107) mmol/L Carbon Dioxide (22-30) mmol/L BUN (9-20) mg/dL Calcium (8.4-10.2) mg/dL RSV (PCR) (Not Detectd) Assessment and Plan Assessment: 1. Severe acute RSV tracheobronchitis - Patient has been placed on IV Solu-Medrol 60 mg every 6 hours; DuoNeb nebulizer treatments 4 times a day and when necessary 2. Acute hypoxic respiratory failure - Patient is currently on 8 L of O2 per nasal cannula; we will plan to titrate her pain as able 3. Right middle lobe pneumonia; P underlying bacterial pneumonia - Patient has been placed on IV Levaquin and azithromycin; we will monitor CBC, CMP and pro-calcitonin 4. History of AV block; status post pacemaker implantation 5. Diabetes mellitus type 2; we will monitor Accu-Cheks before meals and at bedtime with insulin sliding scale; continue with home dose of metformin thousand milligrams daily 6. Hypertension; Coreg 12.5 mg twice a day; hydrochlorothiazide 50 mg daily; lisinopril 10 mg daily; amlodipine 5 mg daily 7. Hypothyroidism; levothyroxine 125 MCG daily 8. Chronic lymphedema bilateral lower extremities; Lasix 20 mg daily 9. Chronic back pain/degenerative arthritis/gout; -- Allopurinol 100 mg daily 10. Morbid obesity; counseling done and need for weight reduction DVT prophylaxis; SCDs
[2022-05-06] MEDS: LEVOFLOXACIN 750MG-D5W PMX 750 MG in DEXTROSE/WATER 1 150ML.BAG IVPB SCH (19:53)
[2022-05-06 20:04] LABS: Glucose,Whole Blood 187 mg/dL (70-110)
[2022-05-06] MEDS ORDERED: LEVOFLOXACIN 750 MG TAB PO SCH (21:00)
[2022-05-06] MEDS ORDERED: AZITHROMYCIN 500 MG TAB PO SCH (21:00)
[2022-05-07] MEDS: SODIUM CHLORIDE 0.9% 1,000 ML IV SCH ×3 (01:51→21:41)
[2022-05-07 06:19] LABS: Glucose,Whole Blood 179 mg/dL (70-110)
[2022-05-07] MEDS: metFORMIN 500 MG TAB PO SCH (06:26)
[2022-05-07] MEDS: LEVOTHYROXINE 125 MCG TAB PO SCH (06:26)
[2022-05-07] MEDS: carvediloL 12.5 MG TAB PO SCH (06:26)
[2022-05-07] MEDS: IPRATROPIUM-ALBUTEROL 3 ML NEB INHALATION SCH ×4 (07:33→19:33)
[2022-05-07] MEDS: amLODIPine 5 MG TAB PO SCH (09:10)
[2022-05-07] MEDS: ASPIRIN 81 MG PO SCH (09:10)
[2022-05-07] MEDS: MULTIVITAMINS, THERA 1 EACH TAB PO SCH (09:10)
[2022-05-07] MEDS: CHOLECALCIFEROL 125 MCG (5000 IU) TABLET PO SCH (09:10)
[2022-05-07] MEDS: lisinopriL 10 MG TAB PO SCH (09:10)
[2022-05-07] MEDS: ASCORBIC ACID 500 MG TAB PO SCH (09:10)
[2022-05-07] MEDS: FUROSEMIDE 20 MG TAB PO SCH (09:10)
[2022-05-07] MEDS: allopurinoL 100 MG TAB PO SCH (09:10)
[2022-05-07] MEDS: methylPREDNISolone SOD SUCCI 125 MG/2 ML VIAL IV SCH ×2 (09:11→16:48)
[2022-05-07 09:13] LABS: Basophils # (A) 0.1 k/uL (0-0.2); Basophils % (A) 1 %; Eosinophils % (A) 0 %; HGB 18.6 gm/dL (13.0-17.5); Hypochromasia Marked; Lymphocytes # (A) 0.4 k/uL (1.0-4.8); Lymphocytes % (A) 4 %; MCH 29.3 pg (25.0-35.0); MCHC 31.3 g/dL (31.0-37.0); MCV 93.6 fL (80.0-100.0); Mean Platelet Volume 9.4; Monocytes # (A) 0.5 k/uL (0-1.0); Monocytes % (A) 6 %; Neutrophils # (A) 7.8 k/uL (1.3-7.7); Neutrophils % (A) 88 %; Platelet Count 166 k/uL (150-450); RBC 6.34 m/uL (4.30-5.90); RDW 15.8 % (11.5-15.5); WBC 8.8 k/uL (3.8-10.6)
[2022-05-07 09:18] LABS: HCT 59.3 % (39.0-53.0)
[2022-05-07 09:21] LABS: African American GFR (CKD) >90 (>60 ml/min/1.73 sqM); Anion Gap 9 mmol/L; Blood Urea Nitrogen 39 mg/dL (9-20); Calcium 8.4 mg/dL (8.4-10.2); Carbon Dioxide 29 mmol/L (22-30); Chloride 96 mmol/L (98-107); Glucose 193 mg/dL (74-99); Non-African American GFR(CKD) >90 (>60 ml/min/1.73 sqM); Sodium 134 mmol/L (137-145)
[2022-05-07 09:30] LABS: Potassium 5.5 mmol/L (3.5-5.1)
[2022-05-07 09:56] LABS: Magnesium 2.3 mg/dL (1.6-2.3)
[2022-05-07] MEDS ORDERED: SODIUM POLYSTYRENE SULFONATE 15 GM/60 ML BOTTLE PO STA (11:27)
--- NOTE | 2022-05-07 12:11 | P.PN ---
Subjective Progress Note Date: 05/07/22 This is a morbidly obese 56-year-old male patient, diabetic with obvious features of obstructive sleep apnea and previous history of pacemaker insertion for second-degree AV block and previous history of throat cancer treated with radiation therapy. The patient has had previous Covid 19 infection with a dequate recovery. The patient presented to the hospital because of worsening shortness of breath and cough and congestion has been going on for almost a week. No fever. He had increased chest congestion. He also has some sinus and nasal congestion using nasal saline rinses. He does have chronic lymphedema lower oximetry is bilaterally. No calf pain or tenderness. He presented to the emergency and the patient was found to be afebrile, hemodynamically stable, he was hypoxic and patient is currently is on 8 L of oxygen by nasal cannula. His WBC count is at 7 with a hemoglobin 19.1 and a platelet count of 153. INR was 1.4 with a PT of 15.8 and a d-dimer was 2.23 with a PTT of 25.4. Sodium is at 136, BUN is at 49 with a creatinine of 0.8 and a potassium level is at 4.7. Troponins are negative. ProBNP level is 1110. Patient checks positive for RSV. CT angiogram of the chest was done and it showed is some infiltrate/atelectasis in the right middle lobe and left lower lobe posteriorly. Mediastinal and mild parabronchial lymphadenopathy was also seen. The mediastinal lymphadenopathy was essentially nonspecific. The patient had a lactic acid level of 1.4. Recheck positive for RSV. Currently is on bronchodilators. He was also started on broad-spectrum antibiotics with accommodation of Rocephin and Zithromax. 05/07/2022, the patient is feeling slightly better. He has had an emergency as his being treated for the acute tracheal bronchitis related to RSV. He remains on steroids. No major hyperglycemia. BUN is at 39 with a creatinine of 0.7. Pro-calcitonin level is at 0.05. The patient hasn't RBC count of 8.8 with a hemoglobin of 18.6. He is also on oxygen at 10 L/m nasal cannula. Objective - Vital Signs Vital signs: Vital Signs Temp 97.9 F 05/07/22 03:38 Pulse 86 05/07/22 11:52 Resp 20 05/07/22 09:18 BP 113/71 05/07/22 09:18 Pulse Ox 92 L 05/07/22 09:18 FiO2 Intake & Output 05/06/22 05/07/22 05/07/22 18:59 06:59 18:59 Weight 158.757 kg Other: Voiding Method Toilet # Voids 2 - Exam General Appearance: Alert, cooperative, no distress, appears stated age. Morbidly obese breathing is nonlabored and the patient has been on 10 L of oxygen by nasal cannula Head exam was generally normal. There was no scleral icterus or corneal arcus. Mucous membranes were moist. Neck HEENT: Supple, no lymphadenopathy, no thyroid enlargement, no carotid bruits. Lungs: Diminished breath sounds bilaterally along with exhalation wheezes and prolonged. Chest Wall: Chest wall normal expansion with deep inspiration no tenderness and no deformity was found on exam, no costochondral pain or discomfort. Heart: Regular rate and rhythm, S1, S2 normal, no murmur, rub or gallop. Back: Symmetric, no curvature, ROM normal, no CVA tenderness. Abdomen: Soft, non-tender, bowel sounds active all four quadrants, no masses, no organomegaly. Extremities: Extremities normal, atraumatic, no cyanosis or edema. Significant change in color of the lower extremity from the knee down with decreased pulses dorsalis pedis and posterior tibial. Chronic lymphedema involving the lower extremities bilaterally Pulses: 2+ and symmetric. Skin: Skin color, texture, tugor normal, no rashes or lesions. Neurologic: Alert oriented x3 cranial nerves II through XII intact, no motor deficit, no abnormal balance or gait. - Labs CBC & Chem 7: 05/07/22 08:45 05/07/22 08:45 Labs: Abnormal Lab Results - Last 24 Hours (Table) 05/06/22 05/06/22 05/06/22 Range/Units 11:24 11:24 20:03 RBC 6.38 H (4.30-5.90) m/uL Hgb 18.6 H (13.0-17.5) gm/dL Hct 59.6 H* (39.0-53.0) % RDW 16.1 H (11.5-15.5) % Plt Count 148 L (150-450) k/uL Neutrophils # (1.3-7.7) k/uL Lymphocytes # 0.5 L (1.0-4.8) k/uL Sodium (137-145) mmol/L Potassium (3.5-5.1) mmol/L Chloride 96 L (98-107) mmol/L Carbon Dioxide 34 H (22-30) mmol/L BUN 33 H (9-20) mg/dL Glucose 113 H (74-99) mg/dL POC Glucose (mg/dL) 187 H (70-110) mg/dL Calcium 8.3 L (8.4-10.2) mg/dL 05/07/22 05/07/22 05/07/22 Range/Units 06:17 08:45 08:45 RBC 6.34 H (4.30-5.90) m/uL Hgb 18.6 H (13.0-17.5) gm/dL Hct 59.3 H* (39.0-53.0) % RDW 15.8 H (11.5-15.5) % Plt Count (150-450) k/uL Neutrophils # 7.8 H (1.3-7.7) k/uL Lymphocytes # 0.4 L (1.0-4.8) k/uL Sodium 134 L (137-145) mmol/L Potassium 5.5 H (3.5-5.1) mmol/L Chloride 96 L (98-107) mmol/L Carbon Dioxide (22-30) mmol/L BUN 39 H (9-20) mg/dL Glucose 193 H (74-99) mg/dL POC Glucose (mg/dL) 179 H (70-110) mg/dL Calcium (8.4-10.2) mg/dL Microbiology - Last 24 Hours (Table) 05/05/22 19:50 Blood Culture - Preliminary Blood No Growth after 24 hours 05/05/22 19:57 Blood Culture - Preliminary Blood No Growth after 24 hours Assessment and Plan Plan: Acute RSV tracheobronchitis with secondary shortness of breath Acute hypoxic respiratory failure. The patient is currently on 10 L of oxygen by nasal cannula. Right middle lobe consolidation, consider atelectasis/mucous plug. Consider bacterial lobar consolidation/pneumonia. History of Secondary to AV block status post pacemaker implantation obstructive sleep apnea type 2 diabetes hypertension chronic edema and lymphedema hypothyroidism history of gout Acute RSV tracheobronchitis with reactive bronchospasm wheezing. Of concern is a right middle lobe consolidation which obviously brings or raises the concern for an underlying bacterial pneumonia also. Acute hypoxic respiratory failure currently on 8 L of O2 nasal cannula Morbid obesity with obvious features of obstructive sleep apnea Chronic erythrocytosis probably secondary erythrocytosis due to chronic hypoxemia and TELMA History of vocal cord cancer treated with radiation therapy back in 2018 Morbid obesity Chronic lymphedema lower extremities Diabetes mellitus type 2 History of thyroid disease History of pacemaker insertion for a second-degree AV block Chronic back pain and degenerative arthritis Plan Continue DuoNeb about treatments [id number] Continue Solu-Medrol 60 mg every 6 hours Monitor the blood sugar and cover the patient with slight scale insulin coverage Continue Levaquin and discontinue Zithromax for now Resume all medications including oral Lasix IV fluids to KVO Provide the patient incentive spirometer Check pro calcitonin level is low Wean FiO2 to maintain a saturation above 90%, currently on 10 L Outpatien sleep study
[2022-05-07 12:23] LABS: Glucose,Whole Blood 145 mg/dL (70-110)
--- NOTE | 2022-05-07 15:52 | P.PN ---
Subjective Progress Note Date: 05/07/22 Principal diagnosis: Severe acute RSV tracheobronchitis Acute hypoxic respiratory failure Right middle lobe pneumonia 56-year-old male presenting to the emergency department with difficulty in breathing. Onset of symptoms was less than a week ago. Symptoms do worsen with exertion. Patient has mild congestion in his throat. Patient does have history of previous throat cancer however this has been fully treated. No chest congestion, minimal cough. No nasal or sinus congestion. Patient has chronic lymphedema, no increased from chronic swelling. No calf pain. No history of similar symptoms previously. Patient does feel significantly improved with oxygen even during history taking. WBC count is at 7 with a hemoglobin 19.1 and a platelet count of 153. INR was 1.4 with a PT of 15.8 and a d-dimer was 2.23 with a PTT of 25.4. Sodium is at 136, BUN is at 49 with a creatinine of 0.8 and a potassium level is at 4.7. Troponins are negative. ProBNP level is 1110. Patient checks positive for RSV. CT angiogram of the chest was done and it showed is some infiltrate/atelectasis in the right middle lobe and left lower lobe posteriorly. Mediastinal and mild parabronchial lymphadenopathy was also seen. The mediastinal lymphadenopathy was essentially nonspecific. The patient had a lactic acid level of 1.4. Recheck positive for RSV. Currently is on bronchodilators. He was also started on broad-spectrum antibiotics with accommodation of Rocephin and Zithromax. Objective - Vital Signs Vital signs: Vital Signs Temp 97.9 F 05/07/22 03:38 Pulse 79 05/07/22 09:18 Resp 20 05/07/22 09:18 BP 113/71 05/07/22 09:18 Pulse Ox 92 L 05/07/22 09:18 FiO2 Intake & Output 05/06/22 05/07/22 05/07/22 18:59 06:59 18:59 Weight 158.757 kg Other: Voiding Method Toilet # Voids 2 - Exam General appearance: alert, in no apparent distress, other (Cyanotic appearance improves with oxygen) Head exam: Present: normocephalic Eye exam: Present: normal appearance Neck exam: Present: normal inspection Respiratory exam: Present: wheezes Cardiovascular Exam: Present: regular rate, normal rhythm GI/Abdominal exam: Present: soft. Absent: tenderness Extremities exam: Present: pedal edema. Absent: calf tenderness Back exam: Present: normal inspection Neurological exam: Present: alert Psychiatric exam: Present: normal affect, normal mood Skin exam: Present: cyanosis - Labs CBC & Chem 7: 05/07/22 08:45 05/07/22 08:45 Labs: Abnormal Lab Results - Last 24 Hours (Table) 05/06/22 05/06/22 05/06/22 Range/Units 11:24 11:24 20:03 RBC 6.38 H (4.30-5.90) m/uL Hgb 18.6 H (13.0-17.5) gm/dL Hct 59.6 H* (39.0-53.0) % RDW 16.1 H (11.5-15.5) % Plt Count 148 L (150-450) k/uL Neutrophils # (1.3-7.7) k/uL Lymphocytes # 0.5 L (1.0-4.8) k/uL Sodium (137-145) mmol/L Potassium (3.5-5.1) mmol/L Chloride 96 L (98-107) mmol/L Carbon Dioxide 34 H (22-30) mmol/L BUN 33 H (9-20) mg/dL Glucose 113 H (74-99) mg/dL POC Glucose (mg/dL) 187 H (70-110) mg/dL Calcium 8.3 L (8.4-10.2) mg/dL 05/07/22 05/07/22 05/07/22 Range/Units 06:17 08:45 08:45 RBC 6.34 H (4.30-5.90) m/uL Hgb 18.6 H (13.0-17.5) gm/dL Hct 59.3 H* (39.0-53.0) % RDW 15.8 H (11.5-15.5) % Plt Count (150-450) k/uL Neutrophils # 7.8 H (1.3-7.7) k/uL Lymphocytes # 0.4 L (1.0-4.8) k/uL Sodium 134 L (137-145) mmol/L Potassium 5.5 H (3.5-5.1) mmol/L Chloride 96 L (98-107) mmol/L Carbon Dioxide (22-30) mmol/L BUN 39 H (9-20) mg/dL Glucose 193 H (74-99) mg/dL POC Glucose (mg/dL) 179 H (70-110) mg/dL Calcium (8.4-10.2) mg/dL Microbiology - Last 24 Hours (Table) 05/05/22 19:50 Blood Culture - Preliminary Blood No Growth after 24 hours 05/05/22 19:57 Blood Culture - Preliminary Blood No Growth after 24 hours Assessment and Plan Assessment: 1. Severe acute RSV tracheobronchitis - Patient has been placed on IV Solu-Medrol 60 mg every 6 hours; DuoNeb nebulizer treatments 4 times a day and when necessary 2. Acute hypoxic respiratory failure - Patient is currently on 8 L of O2 per nasal cannula; we will plan to titrate her pain as able 3. Right middle lobe pneumonia; P underlying bacterial pneumonia - Patient has been placed on IV Levaquin and azithromycin; we will monitor CBC, CMP and pro-calcitonin 4. History of AV block; status post pacemaker implantation 5. Diabetes mellitus type 2; we will monitor Accu-Cheks before meals and at bedtime with insulin sliding scale; continue with home dose of metformin thousand milligrams daily 6. Hypertension; Coreg 12.5 mg twice a day; hydrochlorothiazide 50 mg daily; lisinopril 10 mg daily; amlodipine 5 mg daily 7. Hypothyroidism; levothyroxine 125 MCG daily 8. Chronic lymphedema bilateral lower extremities; Lasix 20 mg daily 9. Chronic back pain/degenerative arthritis/gout; -- Allopurinol 100 mg daily 10. Morbid obesity; counseling done and need for weight reduction DVT prophylaxis; SCDs
[2022-05-07 20:05] LABS: Glucose,Whole Blood 159 mg/dL (70-110)
[2022-05-07] MEDS: LEVOFLOXACIN 750MG-D5W PMX 750 MG in DEXTROSE/WATER 1 150ML.BAG IVPB SCH (20:29)
[2022-05-07] MEDS: INSULIN ASPART (NovoLOG) 100 UNIT/ML VIAL SQ SCH (21:42)
[2022-05-08] MEDS: methylPREDNISolone SOD SUCCI 125 MG/2 ML VIAL IV SCH ×4 (00:09→23:59)
[2022-05-08] MEDS: LEVOTHYROXINE 125 MCG TAB PO SCH (05:48)
[2022-05-08 05:57] LABS: Glucose,Whole Blood 131 mg/dL (70-110)
[2022-05-08] MEDS: carvediloL 12.5 MG TAB PO SCH (06:31)
[2022-05-08] MEDS: metFORMIN 500 MG TAB PO SCH (06:31)
[2022-05-08] MEDS: INSULIN ASPART (NovoLOG) 100 UNIT/ML VIAL SQ SCH ×4 (06:31→20:56)
[2022-05-08] MEDS: SODIUM CHLORIDE 0.9% 1,000 ML IV SCH ×2 (06:31→16:55)
[2022-05-08 06:35] LABS: Basophils % (A) 0 %; Eosinophils % (A) 0 %; Hypochromasia Marked; Lymphocytes # (A) 0.4 k/uL (1.0-4.8); Lymphocytes % (A) 4 %; MCH 28.4 pg (25.0-35.0); MCHC 30.5 g/dL (31.0-37.0); MCV 93.1 fL (80.0-100.0); Mean Platelet Volume 9.6; Monocytes # (A) 0.6 k/uL (0-1.0); Monocytes % (A) 6 %; Neutrophils # (A) 9.1 k/uL (1.3-7.7); Neutrophils % (A) 88 %; Platelet Count 176 k/uL (150-450); RBC 6.35 m/uL (4.30-5.90); RDW 15.8 % (11.5-15.5); WBC 10.3 k/uL (3.8-10.6)
[2022-05-08 06:44] LABS: HCT 59.1 % (39.0-53.0)
[2022-05-08 06:57] LABS: African American GFR (CKD) >90 (>60 ml/min/1.73 sqM); Anion Gap 4 mmol/L; Blood Urea Nitrogen 32 mg/dL (9-20); Calcium 8.5 mg/dL (8.4-10.2); Carbon Dioxide 36 mmol/L (22-30); Chloride 95 mmol/L (98-107); Glucose 129 mg/dL (74-99); Non-African American GFR(CKD) >90 (>60 ml/min/1.73 sqM); Potassium 5.1 mmol/L (3.5-5.1); Sodium 135 mmol/L (137-145)
[2022-05-08] MEDS: IPRATROPIUM-ALBUTEROL 3 ML NEB INHALATION SCH ×4 (07:38→20:52)
[2022-05-08] MEDS: ASCORBIC ACID 500 MG TAB PO SCH (09:02)
[2022-05-08] MEDS: ASPIRIN 81 MG PO SCH (09:02)
[2022-05-08] MEDS: lisinopriL 10 MG TAB PO SCH (09:02)
[2022-05-08] MEDS: allopurinoL 100 MG TAB PO SCH (09:02)
[2022-05-08] MEDS: MULTIVITAMINS, THERA 1 EACH TAB PO SCH (09:02)
[2022-05-08] MEDS: FUROSEMIDE 20 MG TAB PO SCH (09:03)
[2022-05-08] MEDS: CHOLECALCIFEROL 125 MCG (5000 IU) TABLET PO SCH (09:03)
[2022-05-08] MEDS: amLODIPine 5 MG TAB PO SCH (09:03)
[2022-05-08 11:08] LABS: Glucose,Whole Blood 147 mg/dL (70-110)
--- NOTE | 2022-05-08 12:23 | P.PN ---
Subjective Progress Note Date: 05/08/22 This is a morbidly obese 56-year-old male patient, diabetic with obvious features of obstructive sleep apnea and previous history of pacemaker insertion for second-degree AV block and previous history of throat cancer treated with radiation therapy. The patient has had previous Covid 19 infection with ad equate recovery. The patient presented to the hospital because of worsening shortness of breath and cough and congestion has been going on for almost a week. No fever. He had increased chest congestion. He also has some sinus and nasal congestion using nasal saline rinses. He does have chronic lymphedema lower oximetry is bilaterally. No calf pain or tenderness. He presented to the emergency and the patient was found to be afebrile, hemodynamically stable, he was hypoxic and patient is currently is on 8 L of oxygen by nasal cannula. His WBC count is at 7 with a hemoglobin 19.1 and a platelet count of 153. INR was 1.4 with a PT of 15.8 and a d-dimer was 2.23 with a PTT of 25.4. Sodium is at 136, BUN is at 49 with a creatinine of 0.8 and a potassium level is at 4.7. Troponins are negative. ProBNP level is 1110. Patient checks positive for RSV. CT angiogram of the chest was done and it showed is some infiltrate/atelectasis in the right middle lobe and left lower lobe posteriorly. Mediastinal and mild parabronchial lymphadenopathy was also seen. The mediastinal lymphadenopathy was essentially nonspecific. The patient had a lactic acid level of 1.4. Recheck positive for RSV. Currently is on bronchodilators. He was also started on broad-spectrum antibiotics with accommodation of Rocephin and Zithromax. 05/07/2022, the patient is feeling slightly better. He has had an emergency as his being treated for the acute tracheal bronchitis related to RSV. He remains on steroids. No major hyperglycemia. BUN is at 39 with a creatinine of 0.7. Pro-calcitonin level is at 0.05. The patient hasn't RBC count of 8.8 with a hemoglobin of 18.6. He is also on oxygen at 10 L/m nasal cannula. The patient is seen today 05/08/2022 in follow-up on the selective care unit. He is currently sitting up in chair at the bedside. Awake and alert in no acute distress. Currently maintaining O2 saturations in the mid 90s on 9 L high flow nasal cannula. Afebrile. Hemodynamically stable. Blood culture revealing no growth. Sputum culture pending. White count 10.3. Hemoglobin 18.0. Platelets 176. He quit 35. Potassium 5.1 bicarb 36. BUN 32. Creatinine 0.64. Glucose 129. He is continued on DuoNeb inhalations, IV Solu-Medrol. Remains on oral diuretics. Antibiotics in the form of Levaquin. Objective - Vital Signs Vital signs: Vital Signs Temp 98 F 05/08/22 08:00 Pulse 76 05/08/22 11:56 Resp 20 05/08/22 08:00 BP 114/58 05/08/22 08:00 Pulse Ox 95 05/08/22 08:00 FiO2 Intake & Output 05/07/22 05/08/22 05/08/22 18:59 06:59 18:59 Weight 172 kg Other: Voiding Method Toilet Toilet # Voids 1 2 - Exam General Appearance: Alert, cooperative, morbidly obese 56-year-old male patient. No distress, appears stated age. Breathing is nonlabored and the patient has been on 9 L of oxygen by nasal cannula Head exam was generally normal. There was no scleral icterus or corneal arcus. Mucous membranes were moist. Neck HEENT: Supple, no lymphadenopathy, no thyroid enlargement, no carotid bruits. Lungs: Diminished breath sounds bilaterally along with exhalation wheezes and prolonged. Chest Wall: Chest wall normal expansion with deep inspiration no tenderness and no deformity was found on exam, no costochondral pain or discomfort. Heart: Regular rate and rhythm, S1, S2 normal, no murmur, rub or gallop. Back: Symmetric, no curvature, ROM normal, no CVA tenderness. Abdomen: Soft, non-tender, bowel sounds active all four quadrants, no masses, no organomegaly. Extremities: Extremities normal, atraumatic, no cyanosis or edema. Significant change in color of the lower extremity from the knee down with decreased pulses dorsalis pedis and posterior tibial. Chronic lymphedema involving the lower extremities bilaterally Pulses: 2+ and symmetric. Skin: Skin color, texture, tugor normal, no rashes or lesions. Neurologic: Alert oriented x3 cranial nerves II through XII intact, no motor deficit, no abnormal balance or gait. - Labs CBC & Chem 7: 05/08/22 05:44 05/08/22 05:44 Labs: Abnormal Lab Results - Last 24 Hours (Table) 05/07/22 05/07/22 05/08/22 Range/Units 12:22 20:04 05:44 RBC 6.35 H (4.30-5.90) m/uL Hgb 18.0 H (13.0-17.5) gm/dL Hct 59.1 H* (39.0-53.0) % MCHC 30.5 L (31.0-37.0) g/dL RDW 15.8 H (11.5-15.5) % Neutrophils # 9.1 H (1.3-7.7) k/uL Lymphocytes # 0.4 L (1.0-4.8) k/uL Sodium (137-145) mmol/L Chloride (98-107) mmol/L Carbon Dioxide (22-30) mmol/L BUN (9-20) mg/dL Creatinine (0.66-1.25) mg/dL Glucose (74-99) mg/dL POC Glucose (mg/dL) 145 H 159 H (70-110) mg/dL 05/08/22 05/08/22 05/08/22 Range/Units 05:44 05:56 11:06 RBC (4.30-5.90) m/uL Hgb (13.0-17.5) gm/dL Hct (39.0-53.0) % MCHC (31.0-37.0) g/dL RDW (11.5-15.5) % Neutrophils # (1.3-7.7) k/uL Lymphocytes # (1.0-4.8) k/uL Sodium 135 L (137-145) mmol/L Chloride 95 L (98-107) mmol/L Carbon Dioxide 36 H (22-30) mmol/L BUN 32 H (9-20) mg/dL Creatinine 0.64 L (0.66-1.25) mg/dL Glucose 129 H (74-99) mg/dL POC Glucose (mg/dL) 131 H 147 H (70-110) mg/dL Microbiology - Last 24 Hours (Table) 05/07/22 16:02 Gram Stain - Preliminary Sputum Sputum Culture - Preliminary 05/05/22 19:57 Blood Culture - Preliminary Blood No Growth after 48 hours 05/05/22 19:50 Blood Culture - Preliminary Blood No Growth after 48 hours Assessment and Plan Assessment: Acute RSV tracheobronchitis with reactive bronchospasm wheezing. Of concern is a right middle lobe consolidation which obviously brings or raises the concern for an underlying bacterial pneumonia also. Currently on Levaquin. Acute hypoxic respiratory failure currently on 9 L of O2 nasal cannula Morbid obesity with obvious features of obstructive sleep apnea Chronic erythrocytosis probably secondary erythrocytosis due to chronic hypoxemia and TELMA History of vocal cord cancer treated with radiation therapy back in 2018 Morbid obesity with BMI of 57.7 kg/m Chronic lymphedema lower extremities Diabetes mellitus type 2 History of thyroid disease History of pacemaker insertion for a second-degree AV block Chronic back pain and degenerative arthritis Plan The patient was seen and evaluated Medications and labs reviewed Continue the current treatment plan Increase use of incentive spirometer PA and lateral chest x-ray in a.m. The the FiO2 as tolerated We'll continue to follow I have personally seen and examined the patient, performed the documentation and the assessment and plan as written. Number of minutes spent on the visit: 10.
[2022-05-08 16:49] LABS: Glucose,Whole Blood 166 mg/dL (70-110)
[2022-05-08 19:59] LABS: Glucose,Whole Blood 134 mg/dL (70-110)
[2022-05-08] MEDS: LEVOFLOXACIN 750MG-D5W PMX 750 MG in DEXTROSE/WATER 1 150ML.BAG IVPB SCH (21:13)
--- NOTE | 2022-05-08 22:19 | P.PN ---
Subjective Progress Note Date: 05/08/22 He is upright in the chair today, feeling better. He continues on high flow O2 at 9-10 LPM. He continues to complain of cough. No fever, chills, sweats. Objective - Vital Signs Vital signs: Vital Signs Temp 97.8 F 05/08/22 16:00 Pulse 76 05/08/22 21:03 Resp 18 05/08/22 16:00 BP 162/78 05/08/22 16:00 Pulse Ox 97 05/08/22 16:00 FiO2 Intake & Output 05/08/22 05/08/22 05/09/22 06:59 18:59 06:59 Weight 172 kg Other: Voiding Method Toilet # Voids 2 - Exam Gen: well developed, increased work of breathing CV: RRR, no murmur Lungs: Wheezing. No rales - Labs CBC & Chem 7: 05/08/22 05:44 05/08/22 05:44 Labs: Abnormal Lab Results - Last 24 Hours (Table) 05/08/22 05/08/22 05/08/22 Range/Units 05:44 05:44 05:56 RBC 6.35 H (4.30-5.90) m/uL Hgb 18.0 H (13.0-17.5) gm/dL Hct 59.1 H* (39.0-53.0) % MCHC 30.5 L (31.0-37.0) g/dL RDW 15.8 H (11.5-15.5) % Neutrophils # 9.1 H (1.3-7.7) k/uL Lymphocytes # 0.4 L (1.0-4.8) k/uL Sodium 135 L (137-145) mmol/L Chloride 95 L (98-107) mmol/L Carbon Dioxide 36 H (22-30) mmol/L BUN 32 H (9-20) mg/dL Creatinine 0.64 L (0.66-1.25) mg/dL Glucose 129 H (74-99) mg/dL POC Glucose (mg/dL) 131 H (70-110) mg/dL 05/08/22 05/08/22 05/08/22 Range/Units 11:06 16:47 19:57 RBC (4.30-5.90) m/uL Hgb (13.0-17.5) gm/dL Hct (39.0-53.0) % MCHC (31.0-37.0) g/dL RDW (11.5-15.5) % Neutrophils # (1.3-7.7) k/uL Lymphocytes # (1.0-4.8) k/uL Sodium (137-145) mmol/L Chloride (98-107) mmol/L Carbon Dioxide (22-30) mmol/L BUN (9-20) mg/dL Creatinine (0.66-1.25) mg/dL Glucose (74-99) mg/dL POC Glucose (mg/dL) 147 H 166 H 134 H (70-110) mg/dL Microbiology - Last 24 Hours (Table) 05/05/22 19:50 Blood Culture - Preliminary Blood No Growth after 72 hours 05/05/22 19:57 Blood Culture - Preliminary Blood No Growth after 72 hours 05/07/22 16:02 Gram Stain - Preliminary Sputum Sputum Culture - Preliminary Assessment and Plan Plan: Continue with current treatment, continue IV steroids, duonebs, wean O2 as tolerated. Empiric levaquin
[2022-05-09] MEDS: SODIUM CHLORIDE 0.9% 1,000 ML IV SCH (04:50)
[2022-05-09 06:02] LABS: Glucose,Whole Blood 160 mg/dL (70-110)
[2022-05-09] MEDS: LEVOTHYROXINE 125 MCG TAB PO SCH (06:43)
[2022-05-09] MEDS: INSULIN ASPART (NovoLOG) 100 UNIT/ML VIAL SQ SCH ×2 (06:43→12:04)
[2022-05-09] MEDS: carvediloL 12.5 MG TAB PO SCH (06:43)
[2022-05-09] MEDS: metFORMIN 500 MG TAB PO SCH (06:43)
--- NOTE | 2022-05-09 07:51 | XR ---
EXAMINATION TYPE: XR chest 2V DATE OF EXAM: 05/09/2022 6:19 AM COMPARISON: Chest radiographs from 05/06/2022 TECHNIQUE: XR chest 2V Frontal and lateral views of the chest. CLINICAL INDICATION:Male, 56 years old with history of shortness of breath; FINDINGS: Lungs/Pleura: There is no evidence of pleural effusion, focal consolidation, or pneumothorax. Pulmonary vascularity: Pulmonary vascular congestion. Heart/mediastinum: Cardiomediastinal silhouette is enlarged and stable. Atherosclerotic calcificatio ns are seen in the aorta. Two lead cardiac conduction device overlying the left hemithorax with lead tips projecting over the right ventricle and right atrium. Musculoskeletal: No acute osseous pathology. IMPRESSION: Persistent cardiomegaly with pulmonary vascular congestion.
[2022-05-09] MEDS: IPRATROPIUM-ALBUTEROL 3 ML NEB INHALATION SCH ×2 (08:12→12:23)
[2022-05-09] MEDS: methylPREDNISolone SOD SUCCI 125 MG/2 ML VIAL IV SCH (08:43)
[2022-05-09] MEDS: FUROSEMIDE 20 MG TAB PO SCH (08:43)
[2022-05-09] MEDS: allopurinoL 100 MG TAB PO SCH (08:43)
[2022-05-09] MEDS: amLODIPine 5 MG TAB PO SCH (08:44)
[2022-05-09] MEDS: lisinopriL 10 MG TAB PO SCH (08:44)
[2022-05-09] MEDS: CHOLECALCIFEROL 125 MCG (5000 IU) TABLET PO SCH (08:44)
[2022-05-09] MEDS: MULTIVITAMINS, THERA 1 EACH TAB PO SCH (08:44)
[2022-05-09] MEDS: ASPIRIN 81 MG PO SCH (08:44)
[2022-05-09] MEDS: ASCORBIC ACID 500 MG TAB PO SCH (08:44)
--- NOTE | 2022-05-09 11:03 | P.CONS ---
History of Present Illness - Reason for Consult Consult date: 05/09/22 wound care - History of Present Illness This is a 56-year-old gentleman known to the wound care center who follows with Dr. Farfan. Patient currently has a 2 layer compression wrap on for a nonhealing ulceration to the right lower extremity. Patient is scheduled to see Dr. Farfan on Sunday. At this time the 2 layer compression wrap is in place patient has no complaints or concerns at this time. Patient has history of venous insufficiency and is diabetic. Review Of Systems: Constitutional: No fever, no chills, no night sweats. No weight change. No weakness, fatigue or lethargy. No daytime sleepiness. Integumentary:reports wounds, no lesions. No rash or pruritus. No unusual bruising. No change in hair or nails. Physical exam: General Appearance: Alert, cooperative, no distress, appears stated age. Skin: See HPI all other Skin color, texture, tugor normal, no rashes or lesions. Neurologic: Alert oriented x3 Assessment: 1. Nonhealing ulceration to right lower extremity lateral aspect with fat layer exposure 2. Chronic venous hypertension with ulcer of the right lower extremity 3. Diabetic with skin ulceration Plan: 1. Keep 2 layer compression wrap in place until patient is seen in the wound care center on Sunday for his appointment. Thank you for the consultation any questions please contact the wound care center DNP note has been reviewed and discussed with Dr. Grant and the impression and plan of care has been directed as dictated. Past Medical History Past Medical History: Cancer, Diabetes Mellitus, Hypertension, Musculoskeletal Disorder, Osteoarthritis (OA), Sleep Apnea/CPAP/BIPAP, Thyroid Disorder, Vascular Disorder Additional Past Medical History / Comment(s): Vocal cord cancer dx. 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, elevated uric acid level, occasional back pain, arthritis bilateral hands/L shoulder, L/R leg lymphedema but worse in R leg History of Any Multi-Drug Resistant Organisms: MRSA Year Discovered:: 06/22/14 MDRO Source:: RT LEG Past Surgical History: Cholecystectomy, Pacemaker Additional Past Surgical History / Comment(s): Vocal cord bx Past Anesthesia/Blood Transfusion Reactions: No Reported Reaction Type of Cardiac Device: Permanent Pacemaker Device Placement Date:: 03/24/20 Past Psychological History: No Psychological Hx Reported Additional Psychological History / Comment(s): lives with son Gregg. pt works. He drives. Smoking Status: Former smoker Past Alcohol Use History: None Reported, Occasional Additional Past Alcohol Use History / Comment(s): quit smoking 2016, smoked 2-3 ppd for greater than 20 years, past history of heavy alcohol use, beer with 24 pack or more per day. Patient quit alcohol intake 5 years ago. Past Drug Use History: None Reported Additional Drug Use History / Comment(s): uses cannabis oil occasionally - Past Family History Mother Family Medical History: No Reported History Additional Family Medical History / Comment(s): Mother is healthy and is 76yrs old. Brother(s) Additional Family Medical History / Comment(s): Patient is a total of 5 siblings and one brother from liver cirrhosis from alcoholism. Patient has one son with no major medical problems. Father Sister(s) Family Medical History: Cancer Additional Family Medical History / Comment(s): Father at 57yrs from lung cancer. He was a smoker. Medications and Allergies Home Medications Medication Instructions Recorded Confirmed Type allopurinoL [Zyloprim] 100 mg PO DAILY 09/01/13 05/05/22 History metFORMIN HCL [Glucophage] 1,000 mg PO DAILY 09/01/13 05/05/22 History amLODIPine BESYLATE/BENAZEPRIL 1 cap PO DAILY 10/22/13 05/05/22 History [Lotrel 5-10 MG] Furosemide [Lasix] 20 mg PO DAILY 03/07/18 05/05/22 History Ibuprofen [Motrin] 600 mg PO TID PRN 03/07/20 05/05/22 History Multivit-Min/FA/Lycopen/Lutein 1 tab PO DAILY 03/07/20 05/05/22 History [Centrum Silver Men Tablet] Aspirin EC [Ecotrin Low Dose] 81 mg PO DAILY #30 tablet. 03/10/20 05/05/22 Rx Ascorbic Acid [Vitamin C] 1,000 mg PO DAILY 05/05/22 05/05/22 History Cholecalciferol [Vitamin D3 (125 125 mcg PO DAILY 05/05/22 05/05/22 History Mcg = 5000 Iu)] Levothyroxine Sodium [Synthroid] 125 mcg PO DAILY 05/05/22 05/05/22 History Melatonin 10 mg PO HS PRN 05/05/22 05/05/22 History carvediloL [Coreg] 12.5 mg PO DAILY 05/05/22 05/05/22 History hydroCHLOROthiazide [Hydrodiuril] 50 mg PO DAILY 05/05/22 05/05/22 History traZODone HCL [Desyrel] 100 mg PO HS PRN 05/05/22 05/05/22 History Albuterol Inhaler [Ventolin Hfa 2 puff INHALATION QID PRN #8 gm 05/09/22 Rx Inhaler] predniSONE 10 mg PO DIRECTED #30 tab 05/09/22 Rx Allergies Allergy/AdvReac Type Severity Reaction Status Date / Time penicillin G Allergy Severe Anaphylaxis Verified 05/05/22 14:54 Physical Exam Vitals: Vital Signs Temp Pulse Pulse Resp BP Pulse Ox 05/09/22 08:48 97.8 F 79 20 163/98 93 L 05/09/22 08:22 76 05/09/22 08:12 75 95 05/09/22 04:00 97.9 F 69 18 126/79 90 L 05/09/22 00:00 97.9 F 74 18 100/61 94 L 05/08/22 21:03 76 05/08/22 20:52 80 05/08/22 20:00 98.2 F 77 18 129/81 92 L 05/08/22 16:17 75 05/08/22 16:03 72 05/08/22 16:00 97.8 F 89 18 162/78 97 05/08/22 12:33 76 20 05/08/22 12:00 97.7 F 76 20 126/61 95 05/08/22 11:56 76 05/08/22 11:43 78 Intake and Output 05/08/22 05/09/22 05/09/22 22:59 06:59 14:59 Intake Total 540 118 Balance 540 118 Intake: Oral 540 118 Other: Voiding Method Toilet Toilet # Voids 2 Results CBC & Chem 7: 05/08/22 05:44 05/08/22 05:44 Labs: Abnormal Lab Results - Last 24 Hours (Table) 05/08/22 05/08/22 05/08/22 Range/Units 11:06 16:47 19:57 POC Glucose (mg/dL) 147 H 166 H 134 H (70-110) mg/dL 05/09/22 Range/Units 05:58 POC Glucose (mg/dL) 160 H (70-110) mg/dL Microbiology - Last 24 Hours (Table) 05/05/22 19:50 Blood Culture - Preliminary Blood No Growth after 72 hours 05/05/22 19:57 Blood Culture - Preliminary Blood No Growth after 72 hours 05/07/22 16:02 Gram Stain - Preliminary Sputum Sputum Culture - Preliminary Assessment and Plan (1) Non-pressure ulcer of right lower extremity with fat layer exposed Current Visit: Yes Status: Acute Code(s): L97.912 - NON-PRS CHR ULC UNSP PRT OF R LOW LEG W FAT LAYER EXPOSED SNOMED Code(s): 52014129 (2) Chronic venous hypertension w/ulcer and inflammation involv right side Current Visit: Yes Status: Acute Code(s): I87.331 - CHRONIC VENOUS HTN W ULCER AND INFLAMMATION OF R LOW EXTREM; L97.919 - NON-PRS CHRONIC ULC UNSP PRT OF R LOW LEG W UNSP SEVERITY SNOMED Code(s): 464273610 (3) Type 2 diabetes mellitus with other skin ulcer Current Visit: Yes Status: Acute Code(s): E11.622 - TYPE 2 DIABETES MELLITUS WITH OTHER SKIN ULCER; L98.499 - NON-PRESSURE CHRONIC ULCER OF SKIN OF SITES W UNSP SEVERITY SNOMED Code(s): 936491027
[2022-05-09 11:39] LABS: Glucose,Whole Blood 159 mg/dL (70-110)
--- NOTE | 2022-05-09 11:54 | P.PN ---
Progress Note - Text Progress Note Date: 05/09/22 Patient will require 2 L nasal cannula O2 as well as duo nebs 4 times a day and every 4 hours prn shortness of breath at discharge related to his RSV and underlying COPD. Ultrasound room air 87%. The impression and plan of care has been dictated as directed. : I performed a history and examination of this patient, discussed the same with the dictator. I agree with the dictator's note ,documented as a scribe. Any additional findings or plans will be noted.
[2022-05-09 12:23] VITALS: BP 117/56; PULSE 70; RESP 16; TEMP 97.9
--- NOTE | 2022-05-09 12:36 | P.PN ---
Subjective Progress Note Date: 05/09/22 This is a morbidly obese 56-year-old male patient, diabetic with obvious features of obstructive sleep apnea and previous history of pacemaker insertion for second-degree AV block and previous history of throat cancer treated with radiation therapy. The patient has had previous Covid 19 infection with ad equate recovery. The patient presented to the hospital because of worsening shortness of breath and cough and congestion has been going on for almost a week. No fever. He had increased chest congestion. He also has some sinus and nasal congestion using nasal saline rinses. He does have chronic lymphedema lower oximetry is bilaterally. No calf pain or tenderness. He presented to the emergency and the patient was found to be afebrile, hemodynamically stable, he was hypoxic and patient is currently is on 8 L of oxygen by nasal cannula. His WBC count is at 7 with a hemoglobin 19.1 and a platelet count of 153. INR was 1.4 with a PT of 15.8 and a d-dimer was 2.23 with a PTT of 25.4. Sodium is at 136, BUN is at 49 with a creatinine of 0.8 and a potassium level is at 4.7. Troponins are negative. ProBNP level is 1110. Patient checks positive for RSV. CT angiogram of the chest was done and it showed is some infiltrate/atelectasis in the right middle lobe and left lower lobe posteriorly. Mediastinal and mild parabronchial lymphadenopathy was also seen. The mediastinal lymphadenopathy was essentially nonspecific. The patient had a lactic acid level of 1.4. Recheck positive for RSV. Currently is on bronchodilators. He was also started on broad-spectrum antibiotics with accommodation of Rocephin and Zithromax. 05/07/2022, the patient is feeling slightly better. He has had an emergency as his being treated for the acute tracheal bronchitis related to RSV. He remains on steroids. No major hyperglycemia. BUN is at 39 with a creatinine of 0.7. Pro-calcitonin level is at 0.05. The patient hasn't RBC count of 8.8 with a hemoglobin of 18.6. He is also on oxygen at 10 L/m nasal cannula. The patient is seen today 05/08/2022 in follow-up on the selective care unit. He is currently sitting up in chair at the bedside. Awake and alert in no acute distress. Currently maintaining O2 saturations in the mid 90s on 9 L high flow nasal cannula. Afebrile. Hemodynamically stable. Blood culture revealing no growth. Sputum culture pending. White count 10.3. Hemoglobin 18.0. Platelets 176. He quit 35. Potassium 5.1 bicarb 36. BUN 32. Creatinine 0.64. Glucose 129. He is continued on DuoNeb inhalations, IV Solu-Medrol. Remains on oral diuretics. Antibiotics in the form of Levaquin. The patient is seen today 05/09/2022 in follow-up on the selective care unit. He is awake and alert in no acute distress. Sitting up in a chair at the bedside. Maintaining good O2 saturations in the 90s on 3 L/m per nasal cannula. Afebrile. Hemodynamically stable. Blood cultures reveal no growth. Sputum cultures revealed no growth. Blood sugar 159. He remains on DuoNeb inhalations, IV Solu-Medrol, antibiotics in the form of Levaquin. Pro- calcitonin 0.05. Chest x-ray reveals persistent cardiomegaly with some pulmonary vascular congestion. Remains on oral diuretics. Objective - Vital Signs Vital signs: Vital Signs Temp 97.9 F 05/09/22 12:21 Pulse 70 05/09/22 12:21 Resp 16 05/09/22 12:21 BP 117/56 05/09/22 12:21 Pulse Ox 92 L 05/09/22 12:21 FiO2 Intake & Output 05/08/22 05/09/22 05/09/22 18:59 06:59 18:59 Intake Total 540 118 Balance 540 118 Intake: Oral 540 118 Other: Voiding Method Toilet # Voids 2 - Exam General Appearance: Alert, cooperative, morbidly obese 56-year-old male patient. No distress. Breathing is nonlabored, on 3 L of oxygen by nasal cannula Head exam was generally normal. There was no scleral icterus or corneal arcus. Mucous membranes were moist. Neck HEENT: Supple, no lymphadenopathy, no thyroid enlargement, no carotid bruits. Lungs: Diminished breath sounds bilaterally faint crackles in the posterior bases. Chest Wall: Chest wall normal expansion with deep inspiration no tenderness and no deformity was found on exam, no costochondral pain or discomfort. Heart: Regular rate and rhythm, S1, S2 normal, no murmur, rub or gallop. Back: Symmetric, no curvature, ROM normal, no CVA tenderness. Abdomen: Soft, non-tender, bowel sounds active all four quadrants, no masses, no organomegaly. Extremities: Extremities normal, atraumatic, no cyanosis or edema. Significant change in color of the lower extremity from the knee down with decreased pulses dorsalis pedis and posterior tibial. Chronic lymphedema involving the lower extremities bilaterally Pulses: 2+ and symmetric. Skin: Skin color, texture, tugor normal, no rashes or lesions. Neurologic: Alert oriented x3 cranial nerves II through XII intact, no motor deficit, no abnormal balance or gait. - Labs CBC & Chem 7: 05/08/22 05:44 05/08/22 05:44 Labs: Abnormal Lab Results - Last 24 Hours (Table) 05/08/22 05/08/22 05/09/22 Range/Units 16:47 19:57 05:58 POC Glucose (mg/dL) 166 H 134 H 160 H (70-110) mg/dL 05/09/22 Range/Units 11:37 POC Glucose (mg/dL) 159 H (70-110) mg/dL Microbiology - Last 24 Hours (Table) 05/07/22 16:02 Gram Stain - Final Sputum Sputum Culture - Final 05/05/22 19:50 Blood Culture - Preliminary Blood No Growth after 72 hours 05/05/22 19:57 Blood Culture - Preliminary Blood No Growth after 72 hours Assessment and Plan Assessment: Acute RSV tracheobronchitis with reactive bronchospasm wheezing. Of concern is a right middle lobe consolidation which obviously brings or raises the concern for an underlying bacterial pneumonia also. ProCalcitonin 0.05. Currently on Levaquin. Acute hypoxic respiratory failure currently on 3 L of O2 nasal cannula Morbid obesity with obvious features of obstructive sleep apnea Chronic erythrocytosis probably secondary erythrocytosis due to chronic hypoxemia and TELMA History of vocal cord cancer treated with radiation therapy back in 2018 Morbid obesity with BMI of 57.7 kg/m Chronic lymphedema lower extremities Diabetes mellitus type 2 History of thyroid disease History of pacemaker insertion for a second-degree AV block Chronic back pain and degenerative arthritis Plan The patient was seen and evaluated Chest x-ray and medications reviewed Cleared for discharge from the pulmonary standpoint Continue bronchodilators Complete prednisone taper starting at 40 mg daily for 4 days Complete a course of Levaquin 5 more days Follow-up in the office in 1 week I have personally seen and examined the patient, performed the documentation and the assessment and plan as written. Number of minutes spent on the visit: 10.
[2022-05-10] MEDS ORDERED: predniSONE 20 MG TAB PO SCH (09:00)
--- NOTE | 2022-05-10 15:43 | P.DS ---
Providers Date of admission: 05/05/22 19:24 Expected date of discharge: 05/09/22 Attending physician: Tray Murrieta MD Consults: 05/05/22 19:24 Consult Physician Routine Consulting Provider: Olivier Ochoa Consult Reason/Comments: rsv pneumonia Do you want consulting provider notified?: Yes Primary care physician: Tray Murrieta MD Hospital Course: Final Diagnoses: Acute RSV tracheobronchitis, possible underlying bacterial pneumonia with chest x-ray reporting right total lobe consolidation. Acute hypoxic respiratory failure secondary to the above COPD TELMA Diabetes mellitus type 2 Hypothyroidism Nonhealing ulceration to right lower extremity lateral aspect with fat layer exposure, scheduled to follow-up in wound care center on Sunday. Morbid obesity, BMI 57.7 Chronic back pain Degenerative arthritis History of pacemaker implantation secondary second-degree AV block Hospital course: This a 56-year-old pleasant gentleman admitted with acute RSV tracheobronchitis, acute hypoxic respiratory failure and multiple other medical issues. Significant clinical improvement. Maintaining O2 sats in the 90s on 3 L nasal cannula. Evaluated /treated by pulmonary and wound care team. Maintained on IV steroids nebulized bronchodilators and IV antibiotics of Levaquin. Significant clinical improvement. Patient will be discharged home today in a stable condition with guarded prognosis, pending final DC recommendations and clearance per pulmonary.Patient will require 2 L nasal cannula O2 as well as duo nebs 4 times a day and every 4 hours prn shortness of breath at discharge related to his RSV and underlying COPD. O2 sat room air 87%.Keep 2 layer compression wrap in place until patient is seen in the wound care center on Sunday for his appointment.Patient will also require LABA, nebulizer /nebulized bronchodilators of duo nebs 4 times a day and prn shortness of breath in a patient with history of COPD. Microbiology 05/05/22 19:50 Blood Blood Culture - Preliminary No Growth after 96 hours 05/05/22 19:57 Blood Blood Culture - Preliminary No Growth after 96 hours 05/07/22 16:02 Sputum Gram Stain - Final 05/07/22 16:02 Sputum Sputum Culture - Final The impression and plan of care has been dictated as directed. : I performed a history and examination of this patient, discussed the same with the dictator. I agree with the dictator's note ,documented as a scribe. Any additional findings or plans will be noted. Patient Condition at Discharge: Stable Plan - Discharge Summary Discharge Rx Participant: No New Discharge Prescriptions: New Albuterol Inhaler [Ventolin Hfa Inhaler] 2 puff INHALATION QID PRN #8 gm PRN Reason: Shortness Of Breath Budesonide/Formoterol Fumarate [Symbicort 80-4.5 Mcg Inhaler] 2 puff INHALATION BID #10.2 gm predniSONE 10 mg PO DIRECTED #30 tab Ipratropium-Albuterol Nebulize [Duoneb 0.5 mg-3 mg/3 ml Soln] 3 ml INHALATION QID #120 ml Levofloxacin [Levaquin] 750 mg PO DAILY 1 Days #5 tab Continue metFORMIN HCL [Glucophage] 1,000 mg PO DAILY allopurinoL [Zyloprim] 100 mg PO DAILY amLODIPine BESYLATE/BENAZEPRIL [Lotrel 5-10 MG] 1 cap PO DAILY Furosemide [Lasix] 20 mg PO DAILY Multivit-Min/FA/Lycopen/Lutein [Centrum Silver Men Tablet] 1 tab PO DAILY Ibuprofen [Motrin] 600 mg PO TID PRN PRN Reason: Pain Aspirin EC [Ecotrin Low Dose] 81 mg PO DAILY #30 tablet.dr Melatonin 10 mg PO HS PRN PRN Reason: SLEEP Ascorbic Acid [Vitamin C] 1,000 mg PO DAILY hydroCHLOROthiazide [Hydrodiuril] 50 mg PO DAILY carvediloL [Coreg] 12.5 mg PO DAILY Cholecalciferol [Vitamin D3 (125 Mcg = 5000 Iu)] 125 mcg PO DAILY traZODone HCL [Desyrel] 100 mg PO HS PRN PRN Reason: SLEEP Levothyroxine Sodium [Synthroid] 125 mcg PO DAILY Discharge Medication List allopurinoL [Zyloprim] 100 mg PO DAILY 09/01/13 [History] metFORMIN HCL [Glucophage] 1,000 mg PO DAILY 09/01/13 [History] amLODIPine BESYLATE/BENAZEPRIL [Lotrel 5-10 MG] 1 cap PO DAILY 10/22/13 [History] Furosemide [Lasix] 20 mg PO DAILY 03/07/18 [History] Ibuprofen [Motrin] 600 mg PO TID PRN 03/07/20 [History] Multivit-Min/FA/Lycopen/Lutein [Centrum Silver Men Tablet] 1 tab PO DAILY 03/07/20 [History] Aspirin EC [Ecotrin Low Dose] 81 mg PO DAILY #30 tablet. 03/10/20 [Rx] Ascorbic Acid [Vitamin C] 1,000 mg PO DAILY 05/05/22 [History] Cholecalciferol [Vitamin D3 (125 Mcg = 5000 Iu)] 125 mcg PO DAILY 05/05/22 [History] Levothyroxine Sodium [Synthroid] 125 mcg PO DAILY 05/05/22 [History] Melatonin 10 mg PO HS PRN 05/05/22 [History] carvediloL [Coreg] 12.5 mg PO DAILY 05/05/22 [History] hydroCHLOROthiazide [Hydrodiuril] 50 mg PO DAILY 05/05/22 [History] traZODone HCL [Desyrel] 100 mg PO HS PRN 05/05/22 [History] Albuterol Inhaler [Ventolin Hfa Inhaler] 2 puff INHALATION QID PRN #8 gm 05/09/22 [Rx] predniSONE 10 mg PO DIRECTED #30 tab 05/09/22 [Rx] Budesonide/Formoterol Fumarate [Symbicort 80-4.5 Mcg Inhaler] 2 puff INHALATION BID #10.2 gm 05/10/22 [Rx] Ipratropium-Albuterol Nebulize [Duoneb 0.5 mg-3 mg/3 ml Soln] 3 ml INHALATION QID #120 ml 05/10/22 [Rx] Levofloxacin [Levaquin] 750 mg PO DAILY 1 Days #5 tab 05/10/22 [Rx] Follow up Appointment(s)/Referral(s): Tray Murrieta MD [Primary Care Provider] - 05/11/22 11:15 am Violeta Magana NPC [Nurse Practitioner] - 1 Week Patient Instructions/Handouts: Respiratory Syncytial Virus (DC) Discharge Disposition: HOME WITH HOME HEALTH SERVICES
== END 2022-05-09 14:23 | disposition home health service (06) | DRG 193 ==
LOC: EC 13:31 → 3SCARD 19:24
PROVIDERS: ADMIT Family Medicine; ATTEND Family Medicine
DX: J15.9 Unspecified bacterial pneumonia (principal); J96.01 Acute respiratory failure with hypoxia; Z68.43 Body mass index [BMI] 50.0-59.9, adult; J98.11 Atelectasis; L97.912 Non-pressure chronic ulcer of unspecified part of right lower leg with fat layer exposed; I87.311 Chronic venous hypertension (idiopathic) with ulcer of right lower extremity; J20.5 Acute bronchitis due to respiratory syncytial virus; J42 Unspecified chronic bronchitis; E66.01 Morbid (severe) obesity due to excess calories; I10 Essential (primary) hypertension; Z86.16 Personal history of COVID-19; Z87.891 Personal history of nicotine dependence; D75.1 Secondary polycythemia; E11.621 Type 2 diabetes mellitus with foot ulcer; E03.9 Hypothyroidism, unspecified; G47.33 Obstructive sleep apnea (adult) (pediatric); G89.29 Other chronic pain; M54.9 Dorsalgia, unspecified; M19.90 Unspecified osteoarthritis, unspecified site; R59.1 Generalized enlarged lymph nodes; I45.10 Unspecified right bundle-branch block; M10.9 Gout, unspecified; Z71.3 Dietary counseling and surveillance; Z79.52 Long term (current) use of systemic steroids; Z79.84 Long term (current) use of oral hypoglycemic drugs; Z79.890 Hormone replacement therapy; Z79.899 Other long term (current) drug therapy; Z85.21 Personal history of malignant neoplasm of larynx; Z86.14 Personal history of Methicillin resistant Staphylococcus aureus infection; Z85.819 Personal history of malignant neoplasm of unspecified site of lip, oral cavity, and pharynx; Z92.3 Personal history of irradiation; Z95.0 Presence of cardiac pacemaker; Z88.0 Allergy status to penicillin; Z79.82 Long term (current) use of aspirin
CPT/HCPCS: 36415; 71045; 71046; 71275; 80048; 80053; 83605; 83735; 83880; 84145; 84484; 85025; 85379; 85610; 85730; 87040; 87070; 87205; 87449; 87636; 93005; 94640; 94760; 96361; 96365; 96366; 99285

== ENCOUNTER → 2022-08-10 | Outpatient (CLI) | payer BC, OTHER ==
--- NOTE | 2022-08-10 12:40 | P.PN ---
Subjective DATE: 08/10/2022 FOLLOW UP VISIT. 56-year-old gentleman had been followed in sleep center. I so patient in May 2020, that time patient was recommended to proceed with polysomnogram, but for different reasons it was not done. Patient continued to have multiple awakenings from sleep with loud snoring and sleepiness during the day. Gaylord sleepiness scale is less than before is 5. Several months ago patient was hospitalized with the RSV infection. Since that time patient is on oxygen supplement 2 L/m at nighttime. According to patient she is oxygen level goes down during the day to around 70%. .MEDICATIONS:1. Metformin 500 mg twice a day 2 Amlodipine/benazepril 5-10 mg once a day Hydrochlorothiazide 25 mg once a day Furosemide 20 mg once a day Levothyroxine 125 g once a day Amlodipine 100 mg once a day Carvedilol 12.5 mg once a day Trazodone 100 mg as needed During physical exam: GENERAL: A pleasant patient without any distress. VITAL SIGNS: BP 141/87, HR 78, RR 20, weight 360.6, temperature 98.1, oxygen saturation at room air 93 . HEENT: PERRLA, EOMI. extremely low position of soft palate Mallampati 4 NECK: Supple. No JVD. LUNGS: Clear to percussion and to auscultation. Good air exchange. No wheezing or rhonchi. HEART: S1, S2 regular. ABDOMEN: Soft and nontender. obese EXTREMITIES: No clubbing or cyanosis. FISHER LINE: Awake, alert, and oriented x3. No focal deficit. Impressions: 1. Snoring, multiple awakenings from sleep, extremely low position of soft palate, extremely wide neck 21.5 inches. Obstructive sleep apnea-hypopnea syndrome 2. Status post RSV infection. Morbid obesity BMI 60.8. 4. Hypertension 5. Hypothyroidism. 6. History of laryngeal cancer treated by radiation therapy. 7. Diabetes mellitus 8. History of arthritis 9. Status post cholecystectomy Plan: 1. polysomnogram for evaluation of patient breathing during the sleep. 2. Sleep hygiene with regular time in bed for at least 8 hours. 3. CPAP BiPAP titration for correction of respiratory abnormalities. 4. Precautions related to driving. No driving if feel any sleepiness. Patient is aware about civil and criminal liability for unsafe driving, promised to follow recommendations. 5. Aggressive losing weight program. Thank you very much for allowing me to participate in the management of your patient. Stephen Portillo MD, PhD, FAASM. Diplomat of [place] [employer], Sleep Medicine Board by [place] [employer] Material Control Clerk of [facility] [place]
== END ==
LOC: SLEEP 11:42
PROVIDERS: ATTEND Internal Medicine
DX: G47.33 Obstructive sleep apnea (adult) (pediatric) (principal); E03.9 Hypothyroidism, unspecified; E11.9 Type 2 diabetes mellitus without complications; E66.01 Morbid (severe) obesity due to excess calories; I10 Essential (primary) hypertension; Z68.44 Body mass index [BMI] 60.0-69.9, adult; Z79.84 Long term (current) use of oral hypoglycemic drugs; Z79.899 Other long term (current) drug therapy; Z85.21 Personal history of malignant neoplasm of larynx; Z90.49 Acquired absence of other specified parts of digestive tract; Z98.890 Other specified postprocedural states; Z79.890 Hormone replacement therapy; Z88.0 Allergy status to penicillin; Z87.891 Personal history of nicotine dependence
CPT/HCPCS: 99212

== ENCOUNTER 2023-02-14 19:42 | Outpatient (CLI) | payer BC, OTHER ==
--- NOTE | 2023-02-15 11:37 | P.PCN ---
Description of Procedure: CLINICAL: Titration with positive air pressure has been done for correction of respiratory abnormalities during sleep. DESCRIPTION OF PROCEDURE: The standard montage for clinical polysomnography included the electroencephalogram, the electrocardiogram, the mentalis surface electromyography and Lead II cardiography. The respiratory battery consisted of measurements of nasal /buccal air flow, pressure transducer measurements from the nose, thoracic and /or abdominal effort and intercostal surface electromyography. Video monitoring has been done to check for any parasomnia events. Nocturnal oxyhemoglobin saturations were obtained by finger oximetry. Step-mccormack titration with positive airway pressure was utilized to control respiratory events. Raw data of sleep recording has been reviewed and is adequate. RESULTS: Sleep efficiency was slightly decreased to 80.4 %. Latency to sleep onset was normal 13.0 minutes.]. Sleep architecture showed stage N1 was normal 5.9 %, Delta sleep was absent 0 %, REM sleep was short 10.9 %. Heart rate was minimum 58 BPM, maximum 68 BPM, average 62 BPM. EMG showed 73.5 periodic limb movements per hour with 0 micriarousals per hour. PAP titration have been done with CPAP up to the pressure 14 cm H2O. Patient continued abnormalities of respiration with CPAP, switched to BPAP. BPAP titrate d up to 25/21 cm H2O. The best results were at the pressure 22/18 cm H2O. Apnea hypopnea index improved, but patient continued to have severe oxygen desaturation during sleep. IMPRESSION: 1. Severe Obstructive sleep apnea hypopnea syndrome improved on treatment with BiPAP, but not normalized. Patient continued to have significant oxygen desaturation on BiPAP to 75%. 2. Significant periodic limb movements have been documented. Please see other impressions from consultation. PLAN: 1. We will repeat BiPAP titration with oxygen supplement for correction of patient respiratory abnormalities during sleep and to normalize his oxygen level during sleep. 2. Watching and losing weight. 3. Sleep hygiene with regular time in bed for at least 8 hours. 4. No driving if feeling any sleepiness. 5. Please check iron profile including ferritin level. Low level of iron may increase risk for periodic limb movements Thank you very much for allowing me to participate in the management of your patient. Sincerely, Stephen Portillo MD, PhD, FAASM Diplomat of [place] [employer] Sleep Medicine Board of [place] [employer] Voltage Inspector of [facility] [place]
== END 2023-02-15 05:20 | disposition home or self-care (01) ==
LOC: 3 N SLEEP 19:42
PROVIDERS: ATTEND Internal Medicine
DX: G47.33 Obstructive sleep apnea (adult) (pediatric) (principal); G47.61 Periodic limb movement disorder; Z88.0 Allergy status to penicillin; Z87.891 Personal history of nicotine dependence
CPT/HCPCS: 95811

== ENCOUNTER 2023-03-17 12:41 | Inpatient (IN) | payer BC, OTHER ==
[2023-03-17] MEDS ORDERED: SODIUM CHLORIDE 0.9% 1,000 ML IV STA (13:00)
[2023-03-17] MEDS ORDERED: methylPREDNISolone SOD SUCCI 125 MG/2 ML VIAL IV STA (13:00)
[2023-03-17] MEDS ORDERED: IPRATROPIUM-ALBUTEROL 3 ML NEB INHALATION STA (13:01)
--- NOTE | 2023-03-17 13:19 | ED ---
SOB HPI - General Chief Complaint: Shortness of Breath Stated Complaint: sob Time Seen by Provider: 03/17/23 13:00 Source: patient, RN notes reviewed, old records reviewed Mode of arrival: ambulatory Limitations: no limitations - History of Present Illness Initial Comments: This is a 57-year-old male to the emergency department for evaluation today. Marcio reynolds presents today for evaluation of severe shortness of breath. Patient is recent development of significant shortness of breath and felt very sick on arrival to the emergency department today. Patient having significant shortness of breath with low oxygen here in the ER. Patient is a poor strain secondary to unable to speak in full sentences MD Complaint: shortness of breath, anxiety -: days(s) Severity: severe Severity scale (1-10): 10 Consistency: constant Improves With: nothing Worsens With: exertion, movement Known History Of: congestive heart failure Context: recent URI, anxiety, recent illness Associated Symptoms: chest pain, sputum production Treatments Prior to Arrival: none - Related Data Home Medications Medication Instructions Recorded Confirmed allopurinoL [Zyloprim] 100 mg PO BID 09/01/13 03/17/23 metFORMIN HCL [Glucophage] 1,000 mg PO DAILY 09/01/13 03/17/23 Mv-Min/Folic/K1/Lycopen/Lutein 1 tab PO DAILY 03/07/20 03/17/23 [Centrum Silver Men Tablet] Ascorbic Acid [Vitamin C] 1,000 mg PO DAILY 05/05/22 03/17/23 Levothyroxine Sodium [Synthroid] 125 mcg PO DAILY 05/05/22 03/17/23 Melatonin 10 mg PO HS PRN 05/05/22 03/17/23 carvediloL [Coreg] 12.5 mg PO DAILY 05/05/22 03/17/23 hydroCHLOROthiazide [Hydrodiuril] 50 mg PO DAILY 05/05/22 03/17/23 Albuterol Inhaler [Ventolin Hfa 2 puff INHALATION RT-QID PRN 11/14/22 03/17/23 Inhaler] Fluticasone/Vilanterol [Breo 1 puff INHALATION RT-DAILY 11/14/22 03/17/23 Ellipta 200-25 Mcg Inhaler] Cyclobenzaprine [Flexeril] 5 mg PO HS PRN 03/17/23 03/17/23 Ibuprofen [Motrin] 600 mg PO Q8HR PRN 03/17/23 03/17/23 lisinopriL [Zestril] 20 mg PO DAILY 03/17/23 03/17/23 traZODone HCL [Desyrel] 50 mg PO HS PRN 03/17/23 03/17/23 Previous Rx's Medication Instructions Recorded Aspirin EC [Ecotrin Low Dose] 81 mg PO DAILY #30 tablet. 03/10/20 Furosemide [Lasix] 40 mg PO DAILY #30 tablet 03/20/23 Allergies Allergy/AdvReac Type Severity Reaction Status Date / Time Penicillins Allergy Anaphylaxis Verified 03/17/23 15:15 Review of Systems ROS Statement: Those systems with pertinent positive or pertinent negative responses have been documented in the HPI. ROS Other: All systems not noted in ROS Statement are negative. Past Medical History Past Medical History: Cancer, Diabetes Mellitus, Hypertension, Musculoskeletal Disorder, Osteoarthritis (OA), Sleep Apnea/CPAP/BIPAP, Thyroid Disorder, Vascu lar Disorder Additional Past Medical History / Comment(s): Vocal cord cancer dx. 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, elevated uric acid level, occasional back pain, arthritis bilateral hands/L shoulder, L/R leg lymphedema but worse in R leg History of Any Multi-Drug Resistant Organisms: MRSA Date of last positivie culture/infection: 06/22/14 MDRO Source:: RT LEG Past Surgical History: Cholecystectomy, Pacemaker Additional Past Surgical History / Comment(s): Vocal cord bx Past Anesthesia/Blood Transfusion Reactions: No Reported Reaction Type of Cardiac Device: Permanent Pacemaker Device Placement Date:: 03/24/20 Past Psychological History: No Psychological Hx Reported Smoking Status: Former smoker Past Alcohol Use History: None Reported, Occasional Past Drug Use History: None Reported - Past Family History Mother Family Medical History: No Reported History Additional Family Medical History / Comment(s): Mother is healthy and is 76yrs old. Brother(s) Additional Family Medical History / Comment(s): Patient is a total of 5 siblings and one brother from liver cirrhosis from alcoholism. Patient has one son with no major medical problems. Father Sister(s) Family Medical History: Cancer Additional Family Medical History / Comment(s): Father at 57yrs from lung cancer. He was a smoker. General Exam Limitations: no limitations General appearance: alert, anxious, obtunded, in distress, obese Head exam: Present: atraumatic, normocephalic, normal inspection Eye exam: Present: normal appearance, PERRL, EOMI. Absent: scleral icterus, conjunctival injection, periorbital swelling ENT exam: Present: normal exam, mucous membranes moist Neck exam: Present: normal inspection. Absent: tenderness, meningismus, lymphadenopathy Respiratory exam: Present: respiratory distress, wheezes, rhonchi, accessory muscle use, decreased breath sounds, prolonged expiratory. Absent: rales, stridor Cardiovascular Exam: Present: regular rate, normal rhythm, normal heart sounds. Absent: systolic murmur, diastolic murmur, rubs, gallop, clicks GI/Abdominal exam: Present: soft, normal bowel sounds. Absent: distended, tenderness, guarding, rebound, rigid Extremities exam: Present: normal inspection, full ROM, normal capillary refill. Absent: tenderness, pedal edema, joint swelling, calf tenderness Back exam: Present: normal inspection Neurological exam: Present: alert, oriented X3, CN II-XII intact Psychiatric exam: Present: normal affect, normal mood Skin exam: Present: warm, dry, intact, normal color. Absent: rash Course Vital Signs 03/17/23 03/17/23 03/17/23 12:50 13:03 13:45 Temperature 97.8 F Pulse Rate 83 83 Respiratory 18 26 H Rate Blood Pressure 124/76 O2 Sat by Pulse 76 L Oximetry Fraction of Inspired Oxygen (FIO2) 03/17/23 03/17/23 03/17/23 13:46 15:00 15:35 Temperature Pulse Rate 79 73 Respiratory 20 20 Rate Blood Pressure 136/79 146/92 O2 Sat by Pulse 93 L 90 L Oximetry Fraction of 30 Inspired Oxygen (FIO2) 03/17/23 03/17/23 03/17/23 17:00 18:00 18:40 Temperature Pulse Rate 72 75 86 Respiratory 20 18 20 Rate Blood Pressure 120/90 130/86 129/89 O2 Sat by Pulse 94 L 95 95 Oximetry Fraction of Inspired Oxygen (FIO2) 03/17/23 03/17/23 19:44 20:25 Temperature Pulse Rate 81 Respiratory 22 Rate Blood Pressure 130/81 O2 Sat by Pulse 94 L Oximetry Fraction of 30 Inspired Oxygen (FIO2) - Reevaluation(s) Reevaluation #1: 03/17/23 16:19 Records reviewed Reevaluation #2: 03/17/23 16:20 Mild improvement in symptoms now breathing treatments and BiPAP, oxygenation is improved Reevaluation #3: 03/17/23 16:20 Patient informed results questions answered Reevaluation #4: 03/17/23 16:20 Was pt. sent in by a medical professional or institution ([facility] Machado, [employer], urgent care, hospital, or retirement...) When possible be specific @ -no Did you speak to anyone other than the patient for history (EMS, parent, family, police, friend...)? What history was obtained from this source @ -no Did you review nursing and triage notes (agree or disagree)? Why? @ -agree Are old charts reviewed (outside hosp., previous admission, EMS record, old EKG, old radiological studies, urgent care reports/EKG's, retirement records)? Report findings @ -yes Differential Diagnosis (chest pain, altered mental status, abdominal pain women, abdominal pain men, vaginal bleeding, weakness, fever, dyspnea, syncope, headache, dizziness, GI bleed, back pain, seizure, CVA, palpatations, mental health, musculoskeletal)? @ -prior EKG interpreted by me (3pts min.). @ -yes X-rays interpreted by me (1pt min.). @ -yes CT interpreted by me (1pt min.). @ -yes U/S interpreted by me (1pt. min.). @ -no What testing was considered but not performed or refused? (CT, X-rays, U/S, labs)? Why? @ -none What meds were considered but not given or refused? Why? @ -none Did you discuss the management of the patient with other professionals (professionals i.e. MARCIO Machado, [employer], lab, RT, psych nurse, sexual assault social worker, guard chief, teacher, campus security officer, transplant case manager)? Give summary @ -no Was smoking cessation discussed for >3mins.? @ -no Was critical care preformed (if so, how long)? @ -no Were there social determinants of health that impacted care today? How? (Homelessness, low income, unemployed, alcoholism, drug addiction, trans portation, low edu. Level, literacy, decrease access to med. care, skilled nursing, rehab)? @ -none Was there de-escalation of care discussed even if they declined (Discuss DNR or withdrawal of care, Hospice)? DNR status @ -no What co-morbidities impacted this encounter? (DM, HTN, Smoking, COPD, CAD, Cancer, CVA, ARF, Chemo, Hep., AIDS, mental health diagnosis, sleep apnea, morbid obesity)? @ -none Was patient admitted / discharged? Hospital course, mention meds given and route, prescriptions, significant lab abnormalities, going to OR and other pertinent info. @ - 57 male to the emergency department for evaluation today. Patient presents today for evaluation of shortness of breath with cough and congestion patient does have significant shortness of breath persistent he has [facility] [place] for heart failure and COPD, hypoxia and respiratory failure Admitted Undiagnosed new problem with uncertain prognosis? @ -no Drug Therapy requiring intensive monitoring for toxicity (Heparin, Nitro, Insulin, Cardizem)? @ -no Were any procedures done? @ -no Diagnosis/symptom? @ -CHF COPD hypoxia Acute, or Chronic, or Acute on Chronic? @ -Acute Uncomplicated (without systemic symptoms) or Complicated (systemic symptoms)? @ -Complicated Side effects of treatment? @ -no Exacerbation, Progression, or Severe Exacerbation? @ -exacerbation Poses a threat to life or bodily function? How? (Chest pain, [place], [place], pneumonia, PE, COPD, DKA, ARF, appy, cholecystitis, CVA, Diverticulitis, Homicidal, Suicidal, threat to staff... and all critical care pts) @ -yes with significant respiratory distress and failure Reevaluation #5: 03/17/23 16:20 Differential Dyspnea: Coronary syndrome, arrhythmia, tamponade, asthma, COPD, pulmonary embolism, pneumonia, pneumothorax, pulmonary effusion, anaphylaxis, diabetic ketoacidosis, flailed chest, pulmonary contusion, diaphragmatic rupture, anemia, neuromuscular, this is not meant to be an all-inclusive list. - Consultations Consultation #1: Spoke with [facility] [place] were agrees to admit this patient Medical Decision Making - Medical Decision Making 57 male to the emergency department for evaluation today. Patient presents for significant shortness of breath at rest for a stress cough congestion and chest pain. Persistent weakness no travel history no sick contacts known, patient is no fever and will be admitted for severe distress - Lab Data Result diagrams: 03/19/23 07:48 03/19/23 07:48 Lab Results 03/17/23 03/17/23 03/17/23 Range/Units 13:00 13:00 13:00 WBC 6.4 (3.8-10.6) k/uL RBC 6.34 H (4.30-5.90) m/uL Hgb 18.7 H (13.0-17.5) gm/dL Hct 60.7 H* (39.0-53.0) % MCV 95.7 (80.0-100.0) fL MCH 29.5 (25.0-35.0) pg MCHC 30.8 L (31.0-37.0) g/dL RDW 16.0 H (11.5-15.5) % Plt Count 193 (150-450) k/uL MPV 9.1 Neutrophils % (Manual) 84 % Lymphocytes % (Manual) 6 % Monocytes % (Manual) 4 % Eosinophils % (Manual) 5 % Basophils % (Manual) 1 % Neutrophils # (Manual) 5.38 (1.3-7.7) k/uL Lymphocytes # (Manual) 0.38 L (1.0-4.8) k/uL Monocytes # (Manual) 0.26 (0-1.0) k/uL Eosinophils # (Manual) 0.32 (0-0.7) k/uL Basophils # (Manual) 0.06 (0-0.2) k/uL Nucleated RBCs 0 (0-0) /100 WBC Manual Slide Review Performed Toxic Granulation Present Hypochromasia Marked PT (10.0-12.5) sec INR (<1.2) APTT (22.0-30.0) sec Sodium 137 (137-145) mmol/L Potassium 4.8 (3.5-5.1) mmol/L Chloride 92 L (98-107) mmol/L Carbon Dioxide 39 H (22-30) mmol/L Anion Gap 6 mmol/L BUN 30 H (9-20) mg/dL Creatinine 0.93 (0.66-1.25) mg/dL Est GFR (CKD-EPI)AfAm >90 (>60 ml/min/1.73 sqM) Est GFR (CKD-EPI)NonAf >90 (>60 ml/min/1.73 sqM) Glucose 128 H (74-99) mg/dL Plasma Lactic Acid Arcenio 1.0 (0.7-2.0) mmol/L Calcium 9.3 (8.4-10.2) mg/dL Magnesium 2.2 (1.6-2.3) mg/dL Total Bilirubin 1.5 H (0.2-1.3) mg/dL AST 32 (17-59) U/L ALT 21 (4-49) U/L Alkaline Phosphatase 80 (38-126) U/L Troponin I (0.000-0.034) ng/mL NT-Pro-B Natriuret Pep 1600 pg/mL Total Protein 7.0 (6.3-8.2) g/dL Albumin 3.9 (3.5-5.0) g/dL Influenza Type A (PCR) (Not Detectd) Influenza Type B (PCR) (Not Detectd) RSV (PCR) (Not Detectd) SARS-CoV-2 (PCR) (Not Detectd) 03/17/23 03/17/23 03/17/23 Range/Units 13:00 13:02 14:49 WBC (3.8-10.6) k/uL RBC (4.30-5.90) m/uL Hgb (13.0-17.5) gm/dL Hct (39.0-53.0) % MCV (80.0-100.0) fL MCH (25.0-35.0) pg MCHC (31.0-37.0) g/dL RDW (11.5-15.5) % Plt Count (150-450) k/uL MPV Neutrophils % (Manual) % Lymphocytes % (Manual) % Monocytes % (Manual) % Eosinophils % (Manual) % Basophils % (Manual) % Neutrophils # (Manual) (1.3-7.7) k/uL Lymphocytes # (Manual) (1.0-4.8) k/uL Monocytes # (Manual) (0-1.0) k/uL Eosinophils # (Manual) (0-0.7) k/uL Basophils # (Manual) (0-0.2) k/uL Nucleated RBCs (0-0) /100 WBC Manual Slide Review Toxic Granulation Hypochromasia PT 12.1 (10.0-12.5) sec INR 1.1 (<1.2) APTT 19.3 L (22.0-30.0) sec Sodium (137-145) mmol/L Potassium (3.5-5.1) mmol/L Chloride (98-107) mmol/L Carbon Dioxide (22-30) mmol/L Anion Gap mmol/L BUN (9-20) mg/dL Creatinine (0.66-1.25) mg/dL Est GFR (CKD-EPI)AfAm (>60 ml/min/1.73 sqM) Est GFR (CKD-EPI)NonAf (>60 ml/min/1.73 sqM) Glucose (74-99) mg/dL Plasma Lactic Acid Arcenio (0.7-2.0) mmol/L Calcium (8.4-10.2) mg/dL Magnesium (1.6-2.3) mg/dL Total Bilirubin (0.2-1.3) mg/dL AST (17-59) U/L ALT (4-49) U/L Alkaline Phosphatase (38-126) U/L Troponin I 0.012 (0.000-0.034) ng/mL NT-Pro-B Natriuret Pep pg/mL Total Protein (6.3-8.2) g/dL Albumin (3.5-5.0) g/dL Influenza Type A (PCR) Not Detected (Not Detectd) Influenza Type B (PCR) Not Detected (Not Detectd) RSV (PCR) Not Detected (Not Detectd) SARS-CoV-2 (PCR) Not Detected (Not Detectd) - EKG Data -: EKG Interpreted by Me (EKG is sinus 79 GA 237 QRS 96 QTc 375) - Radiology Data Radiology results: report reviewed (Chest x-ray CT chest is positive for bilateral effusions), image reviewed Critical Care Time Critical Care Time: Yes Total Critical Care Time: 31 Disposition Clinical Impression: Congestive heart failure, Acute pulmonary edema, Obesity hypoventilation syndrome, Hypoxia, Weakness, Morbid obesity Disposition: ADMITTED IP TO THIS HOSP Condition: Stable Is patient prescribed a controlled substance at d/c from ED?: No Time of Disposition: 16:40
[2023-03-17 13:29] LABS: HGB 18.7 gm/dL (13.0-17.5); Hypochromasia Marked; MCH 29.5 pg (25.0-35.0); MCHC 30.8 g/dL (31.0-37.0); MCV 95.7 fL (80.0-100.0); Mean Platelet Volume 9.1; Platelet Count 193 k/uL (150-450); RBC 6.34 m/uL (4.30-5.90); WBC 6.4 k/uL (3.8-10.6)
[2023-03-17 13:45] LABS: ALT 21 U/L (4-49); AST 32 U/L (17-59); African American GFR (CKD) >90 (>60 ml/min/1.73 sqM); Albumin 3.9 g/dL (3.5-5.0); Alkaline Phosphatase 80 U/L (38-126); Anion Gap 6 mmol/L; Blood Urea Nitrogen 30 mg/dL (9-20); Calcium 9.3 mg/dL (8.4-10.2); Carbon Dioxide 39 mmol/L (22-30); Chloride 92 mmol/L (98-107); Glucose 128 mg/dL (74-99); Magnesium 2.2 mg/dL (1.6-2.3); Non-African American GFR(CKD) >90 (>60 ml/min/1.73 sqM); Potassium 4.8 mmol/L (3.5-5.1); Sodium 137 mmol/L (137-145); Total Bilirubin 1.5 mg/dL (0.2-1.3)
[2023-03-17 13:50] LABS: HCT 60.7 % (39.0-53.0); NT-Pro-B-Type Natriuretic Pept 1600 pg/mL
[2023-03-17 14:36] LABS: Basophils # (M) 0.06 k/uL (0-0.2); Eosinophils # (M) 0.32 k/uL (0-0.7); Lymphocytes # (M) 0.38 k/uL (1.0-4.8); Monocytes # (M) 0.26 k/uL (0-1.0); Neutrophils # (M) 5.38 k/uL (1.3-7.7); Neutrophils % (M) 84 %; Nucleated Red Blood Cells 0 /100 WBC (0-0); Total Cells Counted 100
[2023-03-17 14:38] LABS: Toxic Granulation Present
--- NOTE | 2023-03-17 14:41 | XR ---
EXAMINATION TYPE: XR chest 1V portable DATE OF EXAM: 03/17/2023 Comparison: 11/14/2022 Clinical History: 57 year-old male shortness of breath Findings: Left anterior chest wall pacemaker generator with right atrial and right ventricular leads. Heart rem ains mildly enlarged. Mild hyperinflation. Diffuse interstitial opacities. Left base underpenetrated and not well assessed. Suspect trace pleural effusions. Impression: Correlate for CHF with pulmonary vascular congestion. There may be underlying trace pleural effusions with adjacent atelectasis and/or consolidation.
--- NOTE | 2023-03-17 14:57 | CT ---
EXAMINATION TYPE: CT angio chest DATE OF EXAM: 03/17/2023 2:43 PM COMPARISON: 11/14/2022 HISTORY: SOB CT DLP: 1423.8 mGycm Automated exposure control for dose reduction was used. CONTRAST: CTA scan of the thorax is performed with IV Contrast, patient injected with 100 mL of Isovue 370, pul monary embolism protocol. 3-D postprocessing was performed.. FINDINGS: There are moderate to marked by basilar consolidative/airspace densities consistent with pneumonia. T here has been significant interval worsening compared to the prior study on which there was a smaller left lower lobe infiltrate. There is been interval development of a moderate right pleural effusion and a small left pleural effusion. Note is made of a 3 to 4 mm right upper lobe pulmonary nodule. The great vessels chest are normal is no mediastinal, hilar or axillary adenopathy. There are no filling defects within the pulmonary artery or branches to suggest pulmonary embolism. The osseous structures are intact. There is a 2-lead cardiac pacemaker. IMPRESSION: 1. No evidence of pulmonary embolism. 2. Marked acute cardiopulmonary disease with bibasilar infiltrates and pleural effusions as describe d above.
[2023-03-17 15:41] LABS: INR 1.1 (<1.2); Prothrombin Time 12.1 sec (10.0-12.5)
[2023-03-17 15:50] LABS: Partial Thromboplastin Time 19.3 sec (22.0-30.0)
[2023-03-17] MEDS ORDERED: ONDANSETRON 4 MG/2 ML VIAL IVP PRN (16:06)
[2023-03-17] MEDS ORDERED: MORPHINE SULFATE 4 MG/ML SYRINGE IV PRN (16:06)
[2023-03-17] MEDS ORDERED: NALOXONE 0.4 MG/ML 1 ML VIAL IV PRN (16:06)
[2023-03-17] MEDS: FUROSEMIDE 10 MG/ML 4 ML VIAL IV SCH (17:20)
[2023-03-17 20:54] LABS: Glucose,Whole Blood 131 mg/dL (70-110)
[2023-03-18] MEDS: FUROSEMIDE 10 MG/ML 4 ML VIAL IV SCH ×3 (05:17→16:54)
[2023-03-18 06:13] LABS: Glucose,Whole Blood 126 mg/dL (70-110)
[2023-03-18] MEDS: IPRATROPIUM-ALBUTEROL 3 ML NEB INHALATION PRN ×2 (07:56→11:06)
[2023-03-18] MEDS ORDERED: CYCLOBENZAPRINE 5 MG TAB PO PRN (08:32)
[2023-03-18] MEDS ORDERED: ALBUTEROL HFA INHALER INHALATION PRN (08:32)
[2023-03-18] MEDS ORDERED: traZODone HCL 50 MG TAB PO PRN (08:32)
[2023-03-18] MEDS ORDERED: DEXTROSE 50% SYRINGE 50 ML IVP PRN ×2 (08:41)
[2023-03-18] MEDS ORDERED: PANTOPRAZOLE 40 MG/10 ML VIAL IV SCH (09:00)
[2023-03-18] MEDS ORDERED: methylPREDNISolone SOD SUCCI 40 MG/ML 1 ML VIAL IV SCH (09:00)
[2023-03-18] MEDS: lisinopriL 20 MG TAB PO SCH (09:51)
[2023-03-18] MEDS: ASPIRIN 81 MG PO SCH (09:51)
[2023-03-18] MEDS: MULTIVITAMINS, THERA 1 EACH TAB PO SCH (09:51)
[2023-03-18] MEDS: allopurinoL 100 MG TAB PO SCH ×2 (09:51→20:36)
[2023-03-18] MEDS: carvediloL 12.5 MG TAB PO SCH (09:53)
[2023-03-18 09:55] LABS: Basophils % (A) 0 %; Eosinophils % (A) 0 %; HGB 18.7 gm/dL (13.0-17.5); Hypochromasia Marked; Lymphocytes # (A) 0.7 k/uL (1.0-4.8); Lymphocytes % (A) 8 %; MCH 29.7 pg (25.0-35.0); MCHC 31.6 g/dL (31.0-37.0); Mean Platelet Volume 9.1; Monocytes # (A) 0.9 k/uL (0-1.0); Monocytes % (A) 10 %; Neutrophils % (A) 80 %; Platelet Count 194 k/uL (150-450); RBC 6.32 m/uL (4.30-5.90); RDW 15.9 % (11.5-15.5); WBC 8.7 k/uL (3.8-10.6)
[2023-03-18 10:05] LABS: HCT 59.4 % (39.0-53.0)
[2023-03-18 10:14] LABS: ALT 27 U/L (4-49); AST 29 U/L (17-59); African American GFR (CKD) >90 (>60 ml/min/1.73 sqM); Albumin 3.9 g/dL (3.5-5.0); Alkaline Phosphatase 71 U/L (38-126); Anion Gap 10 mmol/L; Blood Urea Nitrogen 29 mg/dL (9-20); Calcium 9.3 mg/dL (8.4-10.2); Carbon Dioxide 35 mmol/L (22-30); Chloride 92 mmol/L (98-107); Glucose 105 mg/dL (74-99); Magnesium 1.9 mg/dL (1.6-2.3); Non-African American GFR(CKD) >90 (>60 ml/min/1.73 sqM); Phosphorus 3.6 mg/dL (2.5-4.5); Potassium 4.1 mmol/L (3.5-5.1); Sodium 137 mmol/L (137-145); Total Bilirubin 1.7 mg/dL (0.2-1.3); Total Protein 6.8 g/dL (6.3-8.2)
[2023-03-18] MEDS: SYMBICORT 160-4.5 MCG INHALER INHALATION SCH ×2 (11:07→20:46)
--- NOTE | 2023-03-18 11:58 | P.CRDCN ---
History of Present Illness Consult date: 03/18/23 Consult reason: congestive heart failure History of present illness: This is Rangel Velez NP, I'm dictating on behalf of Dr. Nicholson's H&P and A&P The patient was interviewed and examined. HPI: Patient is a pleasant 57-year-old male with a past medical history that includes vocal cord cancer, diabetes, hypertension, osteoarthritis, sleep apnea, MRSA infection, thyroid disorder, and lymphedema who presented to the hospital with complaints of shortness of breath. Patient reports that he started developing severe shortness of breath yesterday, and reports that it increased in severity quite quickly. By the time he got to the emergency department, the patient was having difficulty speaking sentences and was hypoxic on room air. Breathing treatments and supplemental oxygen was started, which subjectively improve the patient's symptoms. Patient had an x-ray which was indicative of possible pulmonary vascular congestion, however a CT angiogram was completed which demonstrates moderate marked bibasilar consolidative/airspace densities consistent with pneumonia. Patient was subsequently admitted for further evaluation or possible CHF. Today patient is seen while sitting at the bedside. Patient reports that he feels fine. He is currently denying chest pain, shortness of breath, heart palpitations, dizziness, syncope. ROS: [No fever, chills, or rigors] [no cough, phlegm, or expectoration] [no nausea, vomiting, or diarrhea] [no hematuria, dysuria] [no musculoskelatal complaints] [no strokes or seizures] [no skin lesions] EXAMINATION: GENERAL: Well-appearing, well-nourished and in no acute distress. NECK: Supple without JVD or thyromegaly. LUNGS: Breath sounds clear to auscultation bilaterally. Respiration equal and unlabored. No wheezes, rales or rhonchi. HEART: Regular rate and rhythm without murmurs, rubs or gallops. S1 and S2 heard. EXTREMITIES: Normal range of motion, no edema. No clubbing or cyanosis. Peripheral pulses intact and strong. REVIEW OF LABS, ECG & MEDICAL DATA: LABS: White count 8.7, hemoglobin 18.7, sodium 137, potassium 4.1, BUN 29, creatinine 0.80, magnesium 1.9, troponin less than 0.012 EKG: Normal sinus rhythm with first-degree AV block IMAGING: Chest x-ray dated 03/17/2023 demonstrates correlation for CHF with pulmonary vascular congestion, there may be underlying trace pleural effusions with adjacent atelectasis and/or consolidation. CTA of the chest dated 03/17/2023 demonstrates no evidence of pulmonary embolism, marked acute cardiopulmonary disease with bibasilar infiltrates and pleural effusions as described above, which shows moderate to marked bibasilar consolidative/airspace densities consistent with pneumonia. There has been significant interval worsening compared to the prior study on which there was a smaller left lower lobe infiltrate. VITALS: Temp 97.5, pulse 82, respirations 16, blood pressure 108/67, O2 saturation 94% on 3 L IMPRESSION: 1. Bibasilar consolidative airspace densities consistent with pneumonia 2. Mild congestive heart failure 3. Hypoxia PLAN: Obtain echocardiogram with Definity contrast. Patient's primary issue is likely long in nature, secondary to the computed tomography scan showing consolidative airspace densities. Recommend pulmonology consult. Further recommendations based on patient's clinical course. Thank you for the consult and allowing us to participate in the care of this patient. Past Medical History Past Medical History: Cancer, Diabetes Mellitus, Hypertension, Musculoskeletal Disorder, Osteoarthritis (OA), Sleep Apnea/CPAP/BIPAP, Thyroid Disorder, Vascular Disorder Additional Past Medical History / Comment(s): Vocal cord cancer dx. 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, elevated uric acid level, occasional back pain, arthritis bilateral hands/L shoulder, L/R leg lymphedema but worse in R leg History of Any Multi-Drug Resistant Organisms: MRSA Date of last positivie culture/infection: 06/22/14 MDRO Source:: RT LEG Past Surgical History: Cholecystectomy, Pacemaker Additional Past Surgical History / Comment(s): Vocal cord bx Past Anesthesia/Blood Transfusion Reactions: No Reported Reaction Type of Cardiac Device: Permanent Pacemaker Device Placement Date:: 03/24/20 Past Psychological History: No Psychological Hx Reported Additional Psychological History / Comment(s): lives with son Gregg. pt works. He drives. Smoking Status: Former smoker Past Alcohol Use History: None Reported, Occasional Additional Past Alcohol Use History / Comment(s): quit smoking 2016, smoked 2-3 ppd for greater than 20 years, past history of heavy alcohol use, beer with 24 pack or more per day. Patient quit alcohol intake 5 years ago. Past Drug Use History: None Reported Additional Drug Use History / Comment(s): uses cannabis oil occasionally - Past Family History Mother Family Medical History: No Reported History Additional Family Medical History / Comment(s): Mother is healthy and is 76yrs old. Brother(s) Additional Family Medical History / Comment(s): Patient is a total of 5 siblings and one brother from liver cirrhosis from alcoholism. Patient has one son with no major medical problems. Father Sister(s) Family Medical History: Cancer Additional Family Medical History / Comment(s): Father at 57yrs from lung cancer. He was a smoker. Medications and Allergies Home Medications Medication Instructions Recorded Confirmed Type allopurinoL [Zyloprim] 100 mg PO BID 09/01/13 03/17/23 History metFORMIN HCL [Glucophage] 1,000 mg PO DAILY 09/01/13 03/17/23 History amLODIPine BESYLATE/BENAZEPRIL 1 cap PO DAILY 10/22/13 03/17/23 History [Lotrel 5-10 MG] Furosemide [Lasix] 20 mg PO DAILY 03/07/18 03/17/23 History Mv-Min/Folic/K1/Lycopen/Lutein 1 tab PO DAILY 03/07/20 03/17/23 History [Centrum Silver Men Tablet] Aspirin EC [Ecotrin Low Dose] 81 mg PO DAILY #30 tablet. 03/10/20 03/17/23 Rx Ascorbic Acid [Vitamin C] 1,000 mg PO DAILY 05/05/22 03/17/23 History Levothyroxine Sodium [Synthroid] 125 mcg PO DAILY 05/05/22 03/17/23 History Melatonin 10 mg PO HS PRN 05/05/22 03/17/23 History carvediloL [Coreg] 12.5 mg PO DAILY 05/05/22 03/17/23 History hydroCHLOROthiazide [Hydrodiuril] 50 mg PO DAILY 05/05/22 03/17/23 History Albuterol Inhaler [Ventolin Hfa 2 puff INHALATION RT-QID PRN 11/14/22 03/17/23 History Inhaler] Fluticasone/Vilanterol [Breo 1 puff INHALATION RT-DAILY 11/14/22 03/17/23 History Ellipta 200-25 Mcg Inhaler] Cyclobenzaprine [Flexeril] 5 mg PO HS PRN 03/17/23 03/17/23 History Ibuprofen [Motrin] 600 mg PO Q8HR PRN 03/17/23 03/17/23 History lisinopriL [Zestril] 20 mg PO DAILY 03/17/23 03/17/23 History traZODone HCL [Desyrel] 50 mg PO HS PRN 03/17/23 03/17/23 History Allergies Allergy/AdvReac Type Severity Reaction Status Date / Time Penicillins Allergy Anaphylaxis Verified 03/17/23 15:15 Physical Exam Vitals: Vital Signs Temp Pulse Pulse Resp BP BP Pulse Ox 03/18/23 11:22 82 03/18/23 11:07 80 03/18/23 09:50 97.5 F L 82 16 108/67 94 L 03/18/23 08:17 78 03/18/23 08:02 80 97 03/18/23 04:44 03/18/23 04:07 84 18 141/81 95 03/18/23 00:54 03/18/23 00:30 99 20 154/95 93 L 03/17/23 20:53 03/17/23 20:40 79 15 142/82 95 03/17/23 20:25 81 22 130/81 94 L 03/17/23 19:44 03/17/23 18:40 86 20 129/89 95 03/17/23 18:00 75 18 130/86 95 03/17/23 17:00 72 20 120/90 94 L 03/17/23 15:35 03/17/23 15:00 73 20 146/92 90 L 03/17/23 13:46 79 20 136/79 93 L 03/17/23 13:45 26 H 03/17/23 13:03 83 03/17/23 12:50 97.8 F 83 18 124/76 76 L FiO2 03/18/23 11:22 03/18/23 11:07 03/18/23 09:50 03/18/23 08:17 03/18/23 08:02 03/18/23 04:44 30 03/18/23 04:07 30 03/18/23 00:54 30 03/18/23 00:30 03/17/23 20:53 30 03/17/23 20:40 30 03/17/23 20:25 03/17/23 19:44 30 03/17/23 18:40 03/17/23 18:00 03/17/23 17:00 03/17/23 15:35 30 03/17/23 15:00 03/17/23 13:46 03/17/23 13:45 03/17/23 13:03 03/17/23 12:50 Intake and Output 03/17/23 03/18/23 03/18/23 22:59 06:59 14:59 Intake Total 10 Output Total 1200 750 Balance -1200 -750 10 Intake: IV 10 Invasive Line 1 10 Output: Urine 1200 750 Other: Voiding Method Urinal Urinal Urinal Weight 171.1 kg Results 03/18/23 08:53 03/18/23 08:53 Cardiac Enzymes 03/17/23 03/17/23 03/17/23 Range/Units 13:00 13:00 17:01 AST 32 (17-59) U/L Troponin I 0.012 <0.012 (0.000-0.034) ng/mL 03/17/23 03/18/23 Range/Units 19:45 08:53 AST 29 (17-59) U/L Troponin I <0.012 (0.000-0.034) ng/mL Coagulation 03/17/23 Range/Units 14:49 PT 12.1 (10.0-12.5) sec APTT 19.3 L (22.0-30.0) sec CBC 03/17/23 03/18/23 Range/Units 13:00 08:53 WBC 6.4 8.7 (3.8-10.6) k/uL RBC 6.34 H 6.32 H (4.30-5.90) m/uL Hgb 18.7 H 18.7 H (13.0-17.5) gm/dL Hct 60.7 H* 59.4 H* (39.0-53.0) % Plt Count 193 194 (150-450) k/uL Comprehensive Metabolic Panel 03/17/23 03/18/23 Range/Units 13:00 08:53 Sodium 137 137 (137-145) mmol/L Potassium 4.8 4.1 (3.5-5.1) mmol/L Chloride 92 L 92 L (98-107) mmol/L Carbon Dioxide 39 H 35 H (22-30) mmol/L BUN 30 H 29 H (9-20) mg/dL Creatinine 0.93 0.80 (0.66-1.25) mg/dL Glucose 128 H 105 H (74-99) mg/dL Calcium 9.3 9.3 (8.4-10.2) mg/dL AST 32 29 (17-59) U/L ALT 21 27 (4-49) U/L Alkaline Phosphatase 80 71 (38-126) U/L Total Protein 7.0 6.8 (6.3-8.2) g/dL Albumin 3.9 3.9 (3.5-5.0) g/dL Current Medications Generic Name Dose Route Start Last Admin Trade Name Freq PRN Reason Stop Dose Admin Albuterol/Ipratropium 3 ml 03/17/23 16:06 03/18/23 11:06 Ipratropium-Albuterol 3 Ml Neb INHALATION 3 ml RT-QID PRN Administration Shortness Of Breath Or Wheezing Allopurinol 100 mg 03/18/23 09:00 03/18/23 09:51 Allopurinol 100 Mg Tab PO 100 mg BID CLAUDIA Administration Aspirin 81 mg 03/18/23 09:00 03/18/23 09:51 Aspirin 81 Mg PO 81 mg DAILY CLAUDIA Administration Budesonide/Formoterol Fumarate 2 puff 03/18/23 10:00 03/18/23 11:07 Symbicort 160-4.5 Mcg Inhaler INHALATION 2 puff RT-BID CLAUDIA Administration Carvedilol 12.5 mg 03/18/23 09:00 03/18/23 09:53 Carvedilol 12.5 Mg Tab PO 12.5 mg AC-BRKFST CLAUDIA Administration Cyclobenzaprine HCl 5 mg 03/18/23 08:32 Cyclobenzaprine 5 Mg Tab PO HS PRN Muscle Pain Dextrose/Water 25 ml 03/18/23 08:41 Dextrose 50% Syringe 50 Ml IVP PER PROTOCOL PRN Hypoglycemia Protocol Dextrose/Water 50 ml 03/18/23 08:41 Dextrose 50% Syringe 50 Ml IVP PER PROTOCOL PRN Hypoglycemia Protocol Furosemide 40 mg 03/18/23 05:00 03/18/23 05:17 Furosemide 10 Mg/Ml 4 Ml Vial IV 40 mg Q12H CLAUDIA Administration Hydrochlorothiazide 50 mg 03/18/23 09:00 03/18/23 09:51 Hydrochlorothiazide 50 Mg Tab PO 50 mg DAILY CLAUDIA Administration Insulin Aspart 0 unit 03/18/23 12:30 Insulin Aspart (Novolog) 100 Unit/Ml Vial SQ ACHS [facility] Protocol Levothyroxine Sodium 125 mcg 03/19/23 06:30 Levothyroxine [address] [place] [address] [facility] Lisinopril 20 mg 03/18/23 09:00 03/18/23 09:51 Lisinopril 20 Mg Tab PO 20 mg DAILY CLAUDIA Administration Melatonin 10 mg 03/18/23 21:00 Melatonin 5 Mg Tablet PO HS PRN SLEEP Morphine Sulfate 4 mg 03/17/23 16:06 Morphine Sulfate 4 Mg/Ml Syringe IV Q4HR PRN Severe Pain (Scale 7 to 10) Multivitamins 1 each 03/18/23 09:00 03/18/23 09:51 Multivitamins, Thera 1 Each Tab PO 1 each DAILY CLAUDIA Administration Naloxone HCl 0.2 mg 03/17/23 16:06 Naloxone 0.4 Mg/Ml 1 Ml Vial IV Q2M PRN Opioid Reversal Ondansetron HCl 4 mg 03/17/23 16:06 Ondansetron 4 Mg/2 Ml Vial IVP Q8HR PRN Nausea And Vomiting Pantoprazole Sodium 40 mg 03/19/23 07:30 Pantoprazole 40 Mg Tablet PO AC-BRKFST [facility] Trazodone HCl 50 mg 03/18/23 08:32 Trazodone Hcl 50 Mg Tab PO HS PRN sleep Intake and Output 03/17/23 03/18/23 03/18/23 22:59 06:59 14:59 Intake Total 10 Output Total 1200 750 Balance -1200 -750 10 Intake: IV 10 Invasive Line 1 10 Output: Urine 1200 750 Other: Voiding Method Urinal Urinal Urinal Weight 171.1 kg 03/18/23 08:53 03/18/23 08:53
[2023-03-18 12:04] LABS: Glucose,Whole Blood 118 mg/dL (70-110)
--- NOTE | 2023-03-18 12:11 | P.HPIM ---
History of Present Illness H&P Date: 03/18/23 Chief Complaint: Shortness of breath * 57-year-old gentleman with past medical history significant for chronic hypoxic respiratory failure, history of obstructive sleep apnea, history of dysphagia with laryngeal cancer, polycythemia,slightest type II, hypertension history of heart block with pacemaker in place, hypothyroid presented to the emergency department with complains of shortness of breath .at the time of presentation in ED patient was up noted to be in distress.patient was hypoxic on room air with saturations every 6%, patient was placed on 4 L and eventually on BiPAP. Chest x-ray obtained showed pulmonary vascular congestion. CT chest negative for pulmonary embolism, however does show bibasilar consolidation consistent with pneumonia .while in ER patient was given breathing treatment, IV Solu-Medrol and started on IV Lasix * review of blood work obtained showed debris BC 6.4 hemoglobin 18.7 hematocrit 60 platelet 193. Serum chemistry sodium 137 potassium 4.8, potassium 39. BU and 30 creatinine 0.93 total bilirubin 1.5 troponin negative N-terminal proBNP 1600 * Patient admitted to medical floor with consultation from pulmonary medicine and cardiology REVIEW OF SYSTEMS: Shortness of breath CONSTITUTIONAL: No fever, no malaise, no fatigue. HEENT: No recent visual problems or hearing problems. Denied any sore throat. CARDIOVASCULAR: No chest pain, orthopnea, PND, no palpitations, no syncope. PULMONARY: No shortness of breath, no cough, no hemoptysis. GASTROINTESTINAL: No diarrhea, no nausea, no vomiting, no abdominal pain. NEUROLOGICAL: No headaches, no weakness, no numbness. HEMATOLOGICAL: Denies any bleeding or petechiae. GENITOURINARY: Denies any burning micturition, frequency, or urgency. MUSCULOSKELETAL/RHEUMATOLOGICAL: Denies any joint pain, swelling, or any muscle pain. ENDOCRINE: Denies any polyuria or polydipsia. PHYSICAL EXAMINATION: GENERAL: The patient is alert and oriented x3, in distress from shortness of breath, nasal cannula in place HEENT: Pupils are round and equally reacting to light. EOMI. CARDIOVASCULAR: S1 and S2 present. No murmurs, rubs, or gallops. PULMONARY: Chest is clear to auscultation, no wheezing or crackles. ABDOMEN: Soft, nontender, nondistended, normoactive bowel sounds. No palpable organomegaly. MUSCULOSKELETAL: No joint swelling or deformity. EXTREMITIES: No cyanosis, clubbing, or pedal edema. NEUROLOGICAL: Gross neurological examination did not reveal any focal deficits. Past Medical History Past Medical History: Cancer, Diabetes Mellitus, Hypertension, Musculoskeletal Disorder, Osteoarthritis (OA), Sleep Apnea/CPAP/BIPAP, Thyroid Disorder, Vascular Disorder Additional Past Medical History / Comment(s): Vocal cord cancer dx. 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, elevated uric acid level, occasional back pain, arthritis bilateral hands/L shoulder, L/R leg lymphedema but worse in R leg History of Any Multi-Drug Resistant Organisms: MRSA Date of last positivie culture/infection: 06/22/14 MDRO Source:: RT LEG Past Surgical History: Cholecystectomy, Pacemaker Additional Past Surgical History / Comment(s): Vocal cord bx Past Anesthesia/Blood Transfusion Reactions: No Reported Reaction Type of Cardiac Device: Permanent Pacemaker Device Placement Date:: 03/24/20 Past Psychological History: No Psychological Hx Reported Additional Psychological History / Comment(s): lives with son Gregg. pt works. He drives. Smoking Status: Former smoker Past Alcohol Use History: None Reported, Occasional Additional Past Alcohol Use History / Comment(s): quit smoking 2016, smoked 2-3 ppd for greater than 20 years, past history of heavy alcohol use, beer with 24 pack or more per day. Patient quit alcohol intake 5 years ago. Past Drug Use History: None Reported Additional Drug Use History / Comment(s): uses cannabis oil occasionally - Past Family History Mother Family Medical History: No Reported History Additional Family Medical History / Comment(s): Mother is healthy and is 76yrs old. Brother(s) Additional Family Medical History / Comment(s): Patient is a total of 5 siblings and one brother from liver cirrhosis from alcoholism. Patient has one son with no major medical problems. Father Sister(s) Family Medical History: Cancer Additional Family Medical History / Comment(s): Father at 57yrs from lung cancer. He was a smoker. Medications and Allergies Home Medications Medication Instructions Recorded Confirmed Type allopurinoL [Zyloprim] 100 mg PO BID 09/01/13 03/17/23 History metFORMIN HCL [Glucophage] 1,000 mg PO DAILY 09/01/13 03/17/23 History amLODIPine BESYLATE/BENAZEPRIL 1 cap PO DAILY 10/22/13 03/17/23 History [Lotrel 5-10 MG] Furosemide [Lasix] 20 mg PO DAILY 03/07/18 03/17/23 History Mv-Min/Folic/K1/Lycopen/Lutein 1 tab PO DAILY 03/07/20 03/17/23 History [Centrum Silver Men Tablet] Aspirin EC [Ecotrin Low Dose] 81 mg PO DAILY #30 tablet. 03/10/20 03/17/23 Rx Ascorbic Acid [Vitamin C] 1,000 mg PO DAILY 05/05/22 03/17/23 History Levothyroxine Sodium [Synthroid] 125 mcg PO DAILY 05/05/22 03/17/23 History Melatonin 10 mg PO HS PRN 05/05/22 03/17/23 History carvediloL [Coreg] 12.5 mg PO DAILY 05/05/22 03/17/23 History hydroCHLOROthiazide [Hydrodiuril] 50 mg PO DAILY 05/05/22 03/17/23 History Albuterol Inhaler [Ventolin Hfa 2 puff INHALATION RT-QID PRN 11/14/22 03/17/23 History Inhaler] Fluticasone/Vilanterol [Breo 1 puff INHALATION RT-DAILY 11/14/22 03/17/23 History Ellipta 200-25 Mcg Inhaler] Cyclobenzaprine [Flexeril] 5 mg PO HS PRN 03/17/23 03/17/23 History Ibuprofen [Motrin] 600 mg PO Q8HR PRN 03/17/23 03/17/23 History lisinopriL [Zestril] 20 mg PO DAILY 03/17/23 03/17/23 History traZODone HCL [Desyrel] 50 mg PO HS PRN 03/17/23 03/17/23 History Allergies Allergy/AdvReac Type Severity Reaction Status Date / Time Penicillins Allergy Anaphylaxis Verified 03/17/23 15:15 Physical Exam Vitals: Vital Signs Temp Pulse Pulse Resp BP BP Pulse Ox 03/18/23 08:17 78 03/18/23 08:02 80 97 03/18/23 04:44 03/18/23 04:07 84 18 141/81 95 03/18/23 00:54 03/18/23 00:30 99 20 154/95 93 L 03/17/23 20:53 03/17/23 20:40 79 15 142/82 95 03/17/23 20:25 81 22 130/81 94 L 03/17/23 19:44 03/17/23 18:40 86 20 129/89 95 03/17/23 18:00 75 18 130/86 95 03/17/23 17:00 72 20 120/90 94 L 03/17/23 15:35 03/17/23 15:00 73 20 146/92 90 L 03/17/23 13:46 79 20 136/79 93 L 03/17/23 13:45 26 H 03/17/23 13:03 83 03/17/23 12:50 97.8 F 83 18 124/76 76 L FiO2 03/18/23 08:17 03/18/23 08:02 03/18/23 04:44 30 03/18/23 04:07 30 03/18/23 00:54 30 03/18/23 00:30 03/17/23 20:53 30 03/17/23 20:40 30 03/17/23 20:25 03/17/23 19:44 30 03/17/23 18:40 03/17/23 18:00 03/17/23 17:00 03/17/23 15:35 30 03/17/23 15:00 03/17/23 13:46 03/17/23 13:45 03/17/23 13:03 03/17/23 12:50 Intake and Output 03/17/23 03/18/23 03/18/23 22:59 06:59 14:59 Output Total 1200 750 Balance -1200 -750 Output: Urine 1200 750 Other: Voiding Method Urinal Urinal Weight 171.1 kg Results CBC & Chem 7: 03/18/23 08:53 03/18/23 08:53 Labs: Abnormal Lab Results - Last 24 Hours (Table) 03/17/23 03/17/23 03/17/23 Range/Units 13:00 13:00 14:49 RBC 6.34 H (4.30-5.90) m/uL Hgb 18.7 H (13.0-17.5) gm/dL Hct 60.7 H* (39.0-53.0) % MCHC 30.8 L (31.0-37.0) g/dL RDW 16.0 H (11.5-15.5) % Lymphocytes # (Manual) 0.38 L (1.0-4.8) k/uL APTT 19.3 L (22.0-30.0) sec Chloride 92 L (98-107) mmol/L Carbon Dioxide 39 H (22-30) mmol/L BUN 30 H (9-20) mg/dL Glucose 128 H (74-99) mg/dL POC Glucose (mg/dL) (70-110) mg/dL Total Bilirubin 1.5 H (0.2-1.3) mg/dL 03/17/23 03/18/23 Range/Units 20:53 06:12 RBC (4.30-5.90) m/uL Hgb (13.0-17.5) gm/dL Hct (39.0-53.0) % MCHC (31.0-37.0) g/dL RDW (11.5-15.5) % Lymphocytes # (Manual) (1.0-4.8) k/uL APTT (22.0-30.0) sec Chloride (98-107) mmol/L Carbon Dioxide (22-30) mmol/L BUN (9-20) mg/dL Glucose (74-99) mg/dL POC Glucose (mg/dL) 131 H 126 H (70-110) mg/dL Total Bilirubin (0.2-1.3) mg/dL Thrombosis Risk Factor Assmnt - Choose All That Apply Any of the Below Risk Factors Present?: Yes Each Factor Represents 1 point: Abnormal pulmonary function (COPD), Age 41-60 years, Obesity (BMI >25) Other Risk Factors: No Other congenital or acquired thrombophilia - If yes, enter type in comment: No Thrombosis Risk Factor Assessment Total Risk Factor Score: 3 Thrombosis Risk Factor Assessment Level: Moderate Risk Assessment and Plan Assessment: Assessment and plan * Acute on chronic hypoxic respiratory failure * Acute congestive heart failure * Bilateral basilar consolidation consistent with pneumonia * Diabetes mellitus type 2 * History of dysphagia with laryngeal cancer * Chronic lower extremity lymphedema * Morbid obesity * History of gout * Hypothyroid * In regards to acute and chronic hypoxic respiratory failure, continue patient on breathing treatments, pulmonary medicine consulted continue IV Lasix continue IV Solu-Medrol * In regards to congestive heart failure, echocardiogram ordered continue IV Lasix, continue oral hydrochlorothiazide continue to monitor intake and output cardiology consulted echocardiogram ordered * In regards to bibasilar pneumonia, started on doxycycline and follow up on CRP and pro-calcitonin levels * In regards to history of laryngeal cancer, speech evaluation for dysphagia * In regards to diabetes mellitus Accu-Cheks before meals at bedtime continue patient on correctional insulin oral metformin on hold monitor for hy poglycemia * CODE STATUS is full code Time with Patient: Greater than 30
[2023-03-18] MEDS: INSULIN ASPART (NovoLOG) 100 UNIT/ML VIAL SQ SCH ×3 (12:20→20:28)
--- NOTE | 2023-03-18 12:35 | P.CNPUL ---
History of Present Illness Consult date: 03/18/23 Reason for consult: dyspnea History of present illness: 57-year-old male patient, morbidly obese with a body mass index of 57.4. He is known to have COPD and severe obstructive sleep apnea with an AHI of 43 along with chronic hypoxemic respiratory failure, presented to the hospital because of worsening shortness of breath and increased lower extremity edema. At the time of arrival, the patient was found to be quite short sentences. He was also hypoxic with low oxygen saturation at time of his admission. The patient was seen in the emergency Department. The patient was afebrile and hemodynamically stable. The patient was supplemented with oxygen. He was started on diuretics. A chest x-ray was done that showed CHF with pulmonary vessel congestion. There was also trace bilateral pleural effusion and based on that, the patient underwent a CT angiogram of the chest that showed a pulmonary embolism. It showed moderate areas of consolidation/airspace disease in lung bases along with pleural effusion and compressive atelectasis of the lung bases right more than left. No fever. No chills. No altered mentation. He is known to have chronic secondary polycythemia. Hemoglobin is at 80.7 with a hematocrit of 59.4. BUN is 28 with a creatinine of 0.8. His serum bicarb is at 35 consistent with chronic hypercapnic respiratory failure. Sodium is 137. Troponins are negative. LFTs are within normal limits. Review of Systems Constitutional: Reports daytime sleepiness, Reports weight gain Eyes: denies as per HPI, denies blurred vision, denies bulging eye, denies decreased vision, denies diplopia, denies discharge, denies dry eye, denies irritation, denies itching, denies pain, denies photophobia, denies loss of peripheral vision, denies loss of vision, denies tunnel vision/blind spots Ears: deny: decreased hearing, ear discharge, earache, tinnitus Ears, nose, mouth and throat: Reports as per HPI Breasts: absent: as per HPI, gynecomastia Cardiovascular: Reports claudication, Reports decreased exercise tolerance, Reports dyspnea on exertion, Reports edema, Reports leg edema, Reports orthopnea, Reports shortness of breath Respiratory: Reports cough, Reports dyspnea, Reports home oxygen, Reports sleep apnea, Reports snoring, Reports wheezing Gastrointestinal: Reports as per HPI Genitourinary: Reports as per HPI Musculoskeletal: Reports as per HPI Musculoskeletal: bilateral: ankle swelling, absent: ankle pain, ankle stiffness Integumentary: Reports as per HPI Neurological: Reports as per HPI Psychiatric: Reports as per HPI Endocrine: Reports as per HPI Hematologic/Lymphatic: Reports as per HPI Allergic/Immunologic: Reports as per HPI Past Medical History Past Medical History: Cancer, Diabetes Mellitus, Hypertension, Musculoskeletal Disorder, Osteoarthritis (OA), Sleep Apnea/CPAP/BIPAP, Thyroid Disorder, Vascular Disorder Additional Past Medical History / Comment(s): Vocal cord cancer dx. 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, elevated uric acid level, occasional back pain, arthritis bilateral hands/L shoulder, L/R leg lymphedema but worse in R leg History of Any Multi-Drug Resistant Organisms: MRSA Date of last positivie culture/infection: 06/22/14 MDRO Source:: RT LEG Past Surgical History: Cholecystectomy, Pacemaker Additional Past Surgical History / Comment(s): Vocal cord bx Past Anesthesia/Blood Transfusion Reactions: No Reported Reaction Type of Cardiac Device: Permanent Pacemaker Device Placement Date:: 03/24/20 Past Psychological History: No Psychological Hx Reported Additional Psychological History / Comment(s): lives with son Gregg. pt works. He drives. Smoking Status: Former smoker Past Alcohol Use History: None Reported, Occasional Additional Past Alcohol Use History / Comment(s): quit smoking 2016, smoked 2-3 ppd for greater than 20 years, past history of heavy alcohol use, beer with 24 pack or more per day. Patient quit alcohol intake 5 years ago. Past Drug Use History: None Reported Additional Drug Use History / Comment(s): uses cannabis oil occasionally - Past Family History Mother Family Medical History: No Reported History Additional Family Medical History / Comment(s): Mother is healthy and is 76yrs old. Brother(s) Additional Family Medical History / Comment(s): Patient is a total of 5 siblings and one brother from liver cirrhosis from alcoholism. Patient has one son with no major medical problems. Father Sister(s) Family Medical History: Cancer Additional Family Medical History / Comment(s): Father at 57yrs from lung cancer. He was a smoker. Medications and Allergies Home Medications Medication Instructions Recorded Confirmed Type allopurinoL [Zyloprim] 100 mg PO BID 09/01/13 03/17/23 History metFORMIN HCL [Glucophage] 1,000 mg PO DAILY 09/01/13 03/17/23 History amLODIPine BESYLATE/BENAZEPRIL 1 cap PO DAILY 10/22/13 03/17/23 History [Lotrel 5-10 MG] Furosemide [Lasix] 20 mg PO DAILY 03/07/18 03/17/23 History Mv-Min/Folic/K1/Lycopen/Lutein 1 tab PO DAILY 03/07/20 03/17/23 History [Centrum Silver Men Tablet] Aspirin EC [Ecotrin Low Dose] 81 mg PO DAILY #30 tablet. 03/10/20 03/17/23 Rx Ascorbic Acid [Vitamin C] 1,000 mg PO DAILY 05/05/22 03/17/23 History Levothyroxine Sodium [Synthroid] 125 mcg PO DAILY 05/05/22 03/17/23 History Melatonin 10 mg PO HS PRN 05/05/22 03/17/23 History carvediloL [Coreg] 12.5 mg PO DAILY 05/05/22 03/17/23 History hydroCHLOROthiazide [Hydrodiuril] 50 mg PO DAILY 05/05/22 03/17/23 History Albuterol Inhaler [Ventolin Hfa 2 puff INHALATION RT-QID PRN 11/14/22 03/17/23 History Inhaler] Fluticasone/Vilanterol [Breo 1 puff INHALATION RT-DAILY 11/14/22 03/17/23 History Ellipta 200-25 Mcg Inhaler] Cyclobenzaprine [Flexeril] 5 mg PO HS PRN 03/17/23 03/17/23 History Ibuprofen [Motrin] 600 mg PO Q8HR PRN 03/17/23 03/17/23 History lisinopriL [Zestril] 20 mg PO DAILY 03/17/23 03/17/23 History traZODone HCL [Desyrel] 50 mg PO HS PRN 03/17/23 03/17/23 History Allergies Allergy/AdvReac Type Severity Reaction Status Date / Time Penicillins Allergy Anaphylaxis Verified 03/17/23 15:15 Physical Exam Vitals: Vital Signs Temp Pulse Pulse Resp BP BP Pulse Ox 03/18/23 09:50 97.5 F L 82 16 108/67 94 L 03/18/23 08:17 78 03/18/23 08:02 80 97 03/18/23 04:44 03/18/23 04:07 84 18 141/81 95 03/18/23 00:54 03/18/23 00:30 99 20 154/95 93 L 03/17/23 20:53 03/17/23 20:40 79 15 142/82 95 03/17/23 20:25 81 22 130/81 94 L 03/17/23 19:44 03/17/23 18:40 86 20 129/89 95 03/17/23 18:00 75 18 130/86 95 03/17/23 17:00 72 20 120/90 94 L 03/17/23 15:35 03/17/23 15:00 73 20 146/92 90 L 03/17/23 13:46 79 20 136/79 93 L 03/17/23 13:45 26 H 03/17/23 13:03 83 03/17/23 12:50 97.8 F 83 18 124/76 76 L FiO2 03/18/23 09:50 03/18/23 08:17 03/18/23 08:02 03/18/23 04:44 30 03/18/23 04:07 30 03/18/23 00:54 30 03/18/23 00:30 03/17/23 20:53 30 03/17/23 20:40 30 03/17/23 20:25 03/17/23 19:44 30 03/17/23 18:40 03/17/23 18:00 03/17/23 17:00 03/17/23 15:35 30 03/17/23 15:00 03/17/23 13:46 03/17/23 13:45 03/17/23 13:03 03/17/23 12:50 Intake and Output 03/17/23 03/18/23 03/18/23 22:59 06:59 14:59 Output Total 1200 750 Balance -1200 -750 Output: Urine 1200 750 Other: Voiding Method Urinal Urinal Weight 171.1 kg GENERAL EXAM: Alert, morbidly obese, pleasant 57-year-old male, and 3 L nasal cannula, comfortable in no apparent distress. HEAD: Normocephalic and atraumatic EYES: Normal reaction of pupils, equal size. NOSE: Clear with pink turbinates. THROAT: White plaques consistent with oral candidiasis NECK: No masses, no JVD. CHEST: No chest wall deformity. LUNGS: Equal air entry with scattered left lower lobe inspiratory crackles. No wheeze, rhonchi or dullness. CVS: S1 and S2 normal with no audible murmur, regular rhythm. No extra heart sounds ABDOMEN: Obese abdomen. No hepatosplenomegaly, active bowel sounds, no guarding or rigidity. SPINE: No scoliosis or deformity SKIN: No rashes CENTRAL NERVOUS SYSTEM: No focal deficits, tone is normal in all 4 extremities. EXTREMITIES: Bilateral lower extremity edema significant worse on the right. No particular calf tenderness. There is a right lymphedema boot on. No clubbing, or cyanosis. Peripheral pulses are intact. Results - Laboratory Findings CBC and BMP: 03/18/23 08:53 03/18/23 08:53 PT/INR, D-dimer PT 12.1 sec (10.0-12.5) 03/17/23 14:49 INR 1.1 (<1.2) 03/17/23 14:49 Abnormal lab findings: Abnormal Labs 03/17/23 03/17/23 03/17/23 13:00 13:00 14:49 RBC 6.34 H Hgb 18.7 H Hct 60.7 H* MCHC 30.8 L RDW 16.0 H Lymphocytes # (Manual) 0.38 L APTT 19.3 L Chloride 92 L Carbon Dioxide 39 H BUN 30 H Glucose 128 H POC Glucose (mg/dL) Total Bilirubin 1.5 H 03/17/23 03/18/23 20:53 06:12 RBC Hgb Hct MCHC RDW Lymphocytes # (Manual) APTT Chloride Carbon Dioxide BUN Glucose POC Glucose (mg/dL) 131 H 126 H Total Bilirubin - Diagnostic Findings Chest x-ray: image reviewed CT scan - chest: image reviewed Assessment and Plan Plan: Acute on chronic hypoxemic respiratory failure, currently on 2 L/m nasal cannula. This is related to fluid overload along with right-sided heart failure. The patient is also developed bilateral pleural effusion currently getting his acute hypoxic respiratory failure. Responding nicely to diuretics. laryngeal cancer with treated radiation treatments back in 2018. Soft tissue neck CT showed enlarged pretracheal lymph node measuring 1.7 cm. Vocal cord was closed at time of examination, making it difficult to exclude mass. Polycythemia, likely related to chronic hypoxemia, likely nocturnal hypoxemia. The patient has home O2 and he is also being evaluated for a CPAP machine and outpatient basis. obstructive sleep apnea, severe and he has an AHI of 43 Diabetes mellitus type 2, [id number] Benign essential hypertension History of second-degree AV block status post pacemaker implantation Morbid obesity, with a BMI of 57 kg/m Chronic lower extremity edema with lymphedema Hypothyroidism History of gout Ex-smoker Plan Continue bronchodilators Discontinue steroids Continue Lasix 40 mg every 12 hours Resume all medications Repeat echocardiogram Arrange outpatient CPAP titration regarding his obstructive sleep apnea
[2023-03-18 16:48] LABS: Glucose,Whole Blood 165 mg/dL (70-110)
[2023-03-18] MEDS: DOXYCYCLINE 100 MG in SODIUM CHLORIDE 0.9% 100 ML IVPB SCH (16:57)
[2023-03-18 20:11] LABS: Glucose,Whole Blood 105 mg/dL (70-110)
[2023-03-18] MEDS ORDERED: MELATONIN 5 MG TABLET PO PRN (21:00)
[2023-03-19] MEDS: DOXYCYCLINE 100 MG in SODIUM CHLORIDE 0.9% 100 ML IVPB SCH ×3 (00:32→23:53)
[2023-03-19 06:09] LABS: Glucose,Whole Blood 104 mg/dL (70-110)
[2023-03-19] MEDS: INSULIN ASPART (NovoLOG) 100 UNIT/ML VIAL SQ SCH ×4 (06:21→20:10)
[2023-03-19] MEDS: PANTOPRAZOLE 40 MG TABLET PO SCH (06:26)
[2023-03-19] MEDS: carvediloL 12.5 MG TAB PO SCH (06:26)
[2023-03-19] MEDS: LEVOTHYROXINE 125 MCG TAB PO SCH (06:26)
[2023-03-19] MEDS: FUROSEMIDE 10 MG/ML 4 ML VIAL IV SCH ×2 (06:26→17:40)
[2023-03-19] MEDS: allopurinoL 100 MG TAB PO SCH ×2 (08:16→20:25)
[2023-03-19] MEDS: ASPIRIN 81 MG PO SCH (08:16)
[2023-03-19] MEDS: lisinopriL 20 MG TAB PO SCH (08:16)
[2023-03-19] MEDS: MULTIVITAMINS, THERA 1 EACH TAB PO SCH (08:16)
[2023-03-19 08:57] LABS: Anisocytosis Slight; HGB 18.5 gm/dL (13.0-17.5); Hypochromasia Marked; MCH 29.1 pg (25.0-35.0); MCHC 30.4 g/dL (31.0-37.0); MCV 95.5 fL (80.0-100.0); Mean Platelet Volume 9.6; Platelet Count 203 k/uL (150-450); Poikilocytosis Slight; RBC 6.36 m/uL (4.30-5.90); WBC 6.4 k/uL (3.8-10.6)
[2023-03-19] MEDS: SYMBICORT 160-4.5 MCG INHALER INHALATION SCH ×2 (09:19→20:56)
[2023-03-19 09:37] LABS: HCT 60.7 % (39.0-53.0)
[2023-03-19 09:50] LABS: African American GFR (CKD) >90 (>60 ml/min/1.73 sqM); Anion Gap 10 mmol/L; Blood Urea Nitrogen 29 mg/dL (9-20); C Reactive Protein 1.1 mg/dL (<1.0); Calcium 8.9 mg/dL (8.4-10.2); Carbon Dioxide 33 mmol/L (22-30); Chloride 94 mmol/L (98-107); Glucose 127 mg/dL (74-99); Non-African American GFR(CKD) >90 (>60 ml/min/1.73 sqM); Sodium 137 mmol/L (137-145)
[2023-03-19 09:56] LABS: NT-Pro-B-Type Natriuretic Pept 492 pg/mL
--- NOTE | 2023-03-19 10:49 | P.PN ---
Subjective Progress Note Date: 03/19/23 HPI: Patient is a pleasant 57-year-old male with a past medical history that includes vocal cord cancer, diabetes, hypertension, osteoarthritis, sleep apnea, MRSA infection, thyroid disorder, and lymphedema who presented to the hospital with complaints of shortness of breath. Patient reports that he started developing severe shortness of breath yesterday, and reports that it increased in severity quite quickly. By the time he got to the emergency department, the patient was having difficulty speaking sentences and was hypoxic on room air. Breathing treatments and supplemental oxygen was started, which subjectively improve the patient's symptoms. Patient had an x-ray which was indicative of possible pulmonary vascular congestion, however a CT angiogram was completed which demonstrates moderate marked bibasilar consolidative/airspace densities consistent with pneumonia. Patient was subsequently admitted for further evaluation or possible CHF. Today patient is seen while sitting at the bedside. Patient reports that he feels fine. He is currently denying chest pain, shortness of breath, heart palpitations, dizziness, syncope. REVIEW OF LABS, ECG & MEDICAL DATA: LABS: White count 8.7, hemoglobin 18.7, sodium 137, potassium 4.1, BUN 29, creatinine 0.80, magnesium 1.9, troponin less than 0.012 EKG: Normal sinus rhythm with first-degree AV block IMAGING: Chest x-ray dated 03/17/2023 demonstrates correlation for CHF with pulmonary vascular congestion, there may be underlying trace pleural effusions with adjacent atelectasis and/or consolidation. CTA of the chest dated 03/17/2023 demonstrates no evidence of pulmonary embolism, marked acute cardiopulmonary disease with bibasilar infiltrates and pleural effusions as described above, which shows moderate to marked bibasilar consolidative/airspace densities consistent with pneumonia. There has been significant interval worsening compared to the prior study on which there was a smaller left lower lobe infiltrate. VITALS: Temp 97.5, pulse 82, respirations 16, blood pressure 108/67, O2 saturation 94% on 3 L 03/19 Patient is seen today in follow-up. He is currently on Lasix 40 mg IV every 12 hours. He states he has been urinating a lot and weight is down 2 kg. He is currently on antibiotics for pneumonia. He has home oxygen for nighttime only and has a workup in process for sleep study. Blood pressure 101/53, heart rate in the 60s and 70s, pulse ox 93% on 3 L. Repeat blood work reveals hemoglobin of 18.5. Potassium 4.0. BUN 29 creatinine 0.8. ProBNP 492. Patient states that he has been ambulating in his room without chest pain, lightheadedness or dizziness. Shortness of breath is improving. EXAMINATION: GENERAL: Well-appearing, well-nourished and in no acute distress. NECK: Supple without JVD or thyromegaly. LUNGS: Diminished bilaterally bilaterally. Respiration equal and unlabored. No wheezes, rales or rhonchi. HEART: Regular rate and rhythm without murmurs, rubs or gallops. S1 and S2 heard. EXTREMITIES: Normal range of motion, no edema. No clubbing or cyanosis. Peripheral pulses intact and strong. IMPRESSION: 1. Bibasilar consolidative airspace densities consistent with pneumonia 2. Acute heart failure 3. Acute hypoxic respiratory failure Probable obstructive sleep apnea PLAN: Continue current cardiac medications Continue IV Lasix Monitor I&O, daily weights, electrolytes and renal function Obtain echocardiogram with Definity contrast. Pulmonary medicine on consult Further recommendations based on patient's clinical course. Nurse practitioner note has been reviewed, I agree with the documented findings and plan of care. Patient was seen and examined. Objective - Vital Signs Vital signs: Vital Signs Temp 97.9 F 03/19/23 08:12 Pulse 69 03/19/23 08:12 Resp 20 03/19/23 08:22 BP 101/53 03/19/23 08:12 Pulse Ox 94 L 03/19/23 08:12 FiO2 30 03/18/23 04:44 Intake & Output 03/18/23 03/19/23 03/19/23 18:59 06:59 18:59 Intake Total 2130 20 Output Total 650 1999 1250 Balance 1480 -1980 -1250 Weight 169 kg Intake: IV 20 20 Invasive Line 1 20 20 Oral 0 Output: Urine 650 1999 1250 Other: Voiding Method Urinal Toilet Toilet Urinal Urinal # Voids 3 - Labs CBC & Chem 7: 03/19/23 07:48 03/19/23 07:48 Labs: Abnormal Lab Results - Last 24 Hours (Table) 03/18/23 03/18/23 03/18/23 Range/Units 08:53 08:53 12:00 RBC 6.32 H (4.30-5.90) m/uL Hgb 18.7 H (13.0-17.5) gm/dL Hct 59.4 H* (39.0-53.0) % RDW 15.9 H (11.5-15.5) % Lymphocytes # 0.7 L (1.0-4.8) k/uL Chloride 92 L (98-107) mmol/L Carbon Dioxide 35 H (22-30) mmol/L BUN 29 H (9-20) mg/dL Glucose 105 H (74-99) mg/dL POC Glucose (mg/dL) 118 H (70-110) mg/dL Total Bilirubin 1.7 H (0.2-1.3) mg/dL 03/18/23 Range/Units 16:44 RBC (4.30-5.90) m/uL Hgb (13.0-17.5) gm/dL Hct (39.0-53.0) % RDW (11.5-15.5) % Lymphocytes # (1.0-4.8) k/uL Chloride (98-107) mmol/L Carbon Dioxide (22-30) mmol/L BUN (9-20) mg/dL Glucose (74-99) mg/dL POC Glucose (mg/dL) 165 H (70-110) mg/dL Total Bilirubin (0.2-1.3) mg/dL
[2023-03-19 11:49] LABS: Glucose,Whole Blood 91 mg/dL (70-110)
--- NOTE | 2023-03-19 14:00 | FL ---
Modified barium swallow. HISTORY: Dysphagia. Modified barium swallow was performed with the department of speech pathology. The patient was prese nted with various consistencies of barium. Deep penetration to the vocal cords with all substances ingested by the patient. No evidence for aspi ration. Full report is to follow from the department of speech pathology. Impression: Deep penetration without aspiration.
--- NOTE | 2023-03-19 14:46 | P.PN ---
Subjective Progress Note Date: 03/19/23 This is a 57-year-old gentleman admitted with acute hypoxic respiratory failure, acute CHF, obstructive sleep apnea, moderate consolidation/airspace disease in bilateral bases along with pleural effusion and compressive atelectasis as per CTA, polycythemia and multiple other medical issues diuresing well on Lasix IV push with 24-hour I&O reflecting a negative fluid balance. Bicarb 33, BUN 29, creatinine 0.81. Afebrile, normal WBC. Denies chest pain, palpitations or increased shortness of breath. Maintaining O2 sats in the 90s on 3 L nasal cannula. Bipap at night. Echo pending. Objective - Vital Signs Vital signs: Vital Signs Temp 97.9 F 03/19/23 08:12 Pulse 60 03/19/23 11:48 Resp 20 03/19/23 11:48 BP 110/65 03/19/23 11:48 Pulse Ox 93 L 03/19/23 11:48 FiO2 30 03/18/23 04:44 Intake & Output 03/18/23 03/19/23 03/19/23 18:59 06:59 18:59 Intake Total 2130 20 780 Output Total 650 1999 2249 Balance 1480 -1980 -1470 Weight 169 kg Intake: IV 20 20 Invasive Line 1 20 20 Oral 0 780 Output: Urine 650 1999 2249 Other: Voiding Method Urinal Toilet Toilet Urinal Urinal # Voids 3 - Exam VITAL SIGNS: [As above] GENERAL: Morbidly obese, Alert and oriented 3, sitting up in chair, no acute distress. HEENT: Normocephalic, Conjunctivae normal. eyes normal. NECK: Unable to assess JVD. No nodularity or masses palpated. CARDIOVASCULAR: S1, S2 regular.No murmur RESPIRATION: Unlabored, bibasilar crackles ABDOMEN: Soft, obese, nontender . No guarding. +BS. LEGS: Chronic lymphedema of bilateral lower extremities, No calf tenderness. NERVOUS SYSTEM: Cranial N 2-12 grossly normal.No focal deficits.Strength and sensation grossly intact. Skin: Warm and dry, no rash noted. - Labs CBC & Chem 7: 03/19/23 07:48 03/19/23 07:48 Labs: Abnormal Lab Results - Last 24 Hours (Table) 03/18/23 03/19/23 03/19/23 Range/Units 16:44 07:48 07:48 RBC 6.36 H (4.30-5.90) m/uL Hgb 18.5 H (13.0-17.5) gm/dL Hct 60.7 H* (39.0-53.0) % MCHC 30.4 L (31.0-37.0) g/dL RDW 16.0 H (11.5-15.5) % Chloride 94 L (98-107) mmol/L Carbon Dioxide 33 H (22-30) mmol/L BUN 29 H (9-20) mg/dL Glucose 127 H (74-99) mg/dL POC Glucose (mg/dL) 165 H (70-110) mg/dL C-Reactive Protein 1.1 H (<1.0) mg/dL Assessment and Plan Assessment: Acute on chronic hypoxic respiratory failure, wears 2-2.5 L nasal cannula during sleep Acute congestive heart failure Bilateral pleural effusions Obstructive sleep apnea, severe Polycythemia History of Dysphagia. Prior CT reported enlarged pretracheal lymph node possible underlying mass, in a patient with history of vocal cord CA 2018 status post radiation. Patient was advised to follow-up with ENT outpatient at [facility] in October 2022 Diabetes mellitus type 2 History of dysphagia with laryngeal cancer Essential hypertension PPM secondary to second-degree AV block Chronic lymphedema Morbid obesity, BMI 57 Chronic back pain degenerative arthritis History of gout Hypothyroidism History of nicotine dependence Plan: Continue on current medication regime ,monitoring and symptomatic treatment. Aggressive pulmonary toileting with nebulized bronchodilators, diuretics. Echo pending. The impression and plan of care has been dictated as directed. : I performed a history and examination of this patient, discussed the same with the dictator. I agree with the dictator's note ,documented as a scribe. Any additional findings or plans will be noted.
[2023-03-19 14:53] VITALS: BMI 56.6
--- NOTE | 2023-03-19 15:39 | P.PN ---
Subjective Progress Note Date: 03/19/23 Principal diagnosis: Acute on chronic hypoxic respiratory failure with acute on chronic cor pulmonale/right sided congestive heart failure, obesity hypoventilation syndrome and obstructive sleep apnea syndrome 57-year-old male patient, morbidly obese with a body mass index of 57.4. He is known to have COPD and severe obstructive sleep apnea with an AHI of 43 along with chronic hypoxemic respiratory failure, presented to the hospital because of worsening shortness of breath and increased lower extremity edema. At the time of arrival, the patient was found to be quite short sentences. He was also hypoxic with low oxygen saturation at time of his admission. The patient was seen in the emergency Department. The patient was afebrile and hemodynamically stable. The patient was supplemented with oxygen. He was started on diuretics. A chest x-ray was done that showed CHF with pulmonary vessel congestion. There was also trace bilateral pleural effusion and based on that, the patient underwent a CT angiogram of the chest that showed a pulmonary embolism. It show ed moderate areas of consolidation/airspace disease in lung bases along with pleural effusion and compressive atelectasis of the lung bases right more than left. No fever. No chills. No altered mentation. He is known to have chronic secondary polycythemia. Hemoglobin is at 80.7 with a hematocrit of 59.4. BUN is 28 with a creatinine of 0.8. His serum bicarb is at 35 consistent with chronic hypercapnic respiratory failure. Sodium is 137. Troponins are negative. LFTs are within normal limits. Reevaluated today on 03/19/23, patient is feeling better today, breathing easier, on 3 L nasal cannula, O2 sats is 93%. Chest x-ray on admission clearly showed bilateral pleural effusions consistent with mild congestive heart failure, CT of the chest showed similar findings: No evidence of pulmonary embolism, questionabledisease at the bases, patient had a swallow evaluation and he had negative aspiration based on the study today clinically the presentation does not seem to be a presentation of pneumonia. Nonetheless the patient did receive diuretics he is on antibiotics, clinically feeling better. Objective - Vital Signs Vital signs: Vital Signs Temp 97.9 F 03/19/23 08:12 Pulse 60 03/19/23 11:48 Resp 20 03/19/23 11:48 BP 110/65 03/19/23 11:48 Pulse Ox 93 L 03/19/23 11:48 FiO2 30 03/18/23 04:44 Intake & Output 03/18/23 03/19/23 03/19/23 18:59 06:59 18:59 Intake Total 2130 20 780 Output Total 650 1999 2249 Balance 1480 -1980 -1470 Weight 169 kg 169 kg Intake: IV 20 20 Invasive Line 1 20 20 Oral 2110 780 Output: Urine 650 1999 2249 Other: Voiding Method Urinal Toilet Toilet Urinal Urinal # Voids 3 - Exam Physical Exam: Revealed a 57-year-old white male obese in no distress on 3 L nasal cannula Head: Atraumatic normocephalic. HEENT:[Neck is supple.] [No neck masses.] [No thyromegaly.] [No JVD.] Chest: [Diminished breath sound bilaterally no rhonchi no wheezes Cardiac Exam: [Normal S1 and S2, no S3 gallop, no murmur.] Abdomen: [Soft, nontender, no megaly, no rebound, no guarding, normal bowel sounds.] Extremities: [No clubbing, 2+ bipedal edema, no cyanosis.] Neurological Exam: [No focal neurologic deficit.] Psychiatric: Normal mood affect and normal mental status exam. Skin: No rash - Labs CBC & Chem 7: 03/19/23 07:48 03/19/23 07:48 Labs: Abnormal Lab Results - Last 24 Hours (Table) 03/18/23 03/19/23 03/19/23 Range/Units 16:44 07:48 07:48 RBC 6.36 H (4.30-5.90) m/uL Hgb 18.5 H (13.0-17.5) gm/dL Hct 60.7 H* (39.0-53.0) % MCHC 30.4 L (31.0-37.0) g/dL RDW 16.0 H (11.5-15.5) % Chloride 94 L (98-107) mmol/L Carbon Dioxide 33 H (22-30) mmol/L BUN 29 H (9-20) mg/dL Glucose 127 H (74-99) mg/dL POC Glucose (mg/dL) 165 H (70-110) mg/dL C-Reactive Protein 1.1 H (<1.0) mg/dL Assessment and Plan Assessment: Impression: Acute on chronic hypoxic respiratory failure, multifactorial Fluid overload and right sided congestive heart failure/cor pulmonale, and I suspect significant component of pulmonary hypertension Obesity hypoventilation syndrome Morbid obesity Obstructive sleep apnea syndrome History of pacemaker implantation Type 2 diabetes without complications Chronic cor pulmonale with edema and lymphedema Hypothyroidism History of gout Ex-smoker History of laryngeal cancer treated with radiation back in 2018 Recommendation: Continue bronchodilators Gentle diuresis and monitor renal status Resume home meds Echocardiogram is pending Will need to follow-up with Dr. Ochoa on outpatient basis for CPAP titration/obstructive sleep apnea syndrome We'll continue to 4 Time with Patient: Less than 30
[2023-03-19 16:50] LABS: Glucose,Whole Blood 119 mg/dL (70-110)
--- NOTE | 2023-03-19 17:45 | CA ---
Transthoracic Echo Report Name: Jonah Jiménez Age: 57 Gender: M : 1965 Exam Date: 03/19/2023 15:02 Exam Location: [facility] Ht (in): 68 Wt (lb): 377 Ordering Physician: Rangel Velez Attending/Referring Phys: Perioperative Manager Kaley Garza RDCS Procedure CPT: Indications: chf Cardiac Hx: Technical Quality: Very technically difficult study Contrast 1: Definity Total Dose (mL): 1 Contrast 2: Total Dose (mL): MEASUREMENTS (Male / Female) Normal Values 2D ECHO LV Diastolic Diameter PLAX 4.4 cm 4.2 - 5.9 / 3.9 - 5.3 cm LV Systolic Diameter PLAX 3.3 cm IVS Diastolic Thickness 1.6 cm 0.6 - 1.0 / 0.6 - 0.9 cm LVPW Diastolic Thickness 1.5 cm 0.6 - 1.0 / 0.6 - 0.9 cm LV Relative Wall Thickness 0.7 RV Internal Dim ED PLAX 3.5 cm LA Systolic Diameter LX 4.0 cm 3.0 - 4.0 / 2.7 - 3.8 cm M-MODE Aortic Root Diameter MM 3.7 cm MV E Point Septal Separation 0.7 cm AV Cusp Separation MM 2.1 cm DOPPLER TR Peak Velocity 296.6 cm/s TR Peak Gradient 35.2 mmHg Right Ventricular Systolic Press 40.2 mmHg FINDINGS Left Ventricle Left ventricular ejection fraction is estimated at 50-55 %. Left ventricular cavity size normal. Moderately increased septal wall thickness. Flettening of ventricular septum Right Ventricle Mild right ventricular dilatation. Mild pulmonary hypertension. Right ventricular systolic pressure estimated at 40 mm hg. Right Atrium Right atrium not well visualized. Left Atrium Normal left atrial size. Mitral Valve No mitral stenosis, regurgitation or prolapse. Aortic Valve Aortic valve not well visualized. Tricuspid Valve Mild tricuspid regurgitation. Pulmonic Valve Pulmonic valve not well visualized. Pericardium No pericardial effusion. Aorta Normal size aortic root and proximal ascending aorta. CONCLUSIONS Normal LV systolic function Mild pulmonary hypertension Previewed by: Dr. Jaycob Rojas MD (Electronically Signed) Final Date: 19 March 2023 17:44
[2023-03-19 20:57] LABS: Glucose,Whole Blood 124 mg/dL (70-110)
[2023-03-20 05:26] LABS: Glucose,Whole Blood 112 mg/dL (70-110)
[2023-03-20] MEDS: INSULIN ASPART (NovoLOG) 100 UNIT/ML VIAL SQ SCH ×2 (05:49→11:49)
[2023-03-20] MEDS: LEVOTHYROXINE 125 MCG TAB PO SCH (05:53)
[2023-03-20] MEDS: carvediloL 12.5 MG TAB PO SCH (05:53)
[2023-03-20] MEDS: FUROSEMIDE 10 MG/ML 4 ML VIAL IV SCH (05:53)
[2023-03-20] MEDS: PANTOPRAZOLE 40 MG TABLET PO SCH (05:53)
[2023-03-20] MEDS: ASPIRIN 81 MG PO SCH (08:01)
[2023-03-20] MEDS: allopurinoL 100 MG TAB PO SCH (08:01)
[2023-03-20] MEDS: lisinopriL 20 MG TAB PO SCH (08:02)
[2023-03-20] MEDS: MULTIVITAMINS, THERA 1 EACH TAB PO SCH (08:02)
[2023-03-20 08:26] VITALS: TEMP 97.9
[2023-03-20] MEDS: SYMBICORT 160-4.5 MCG INHALER INHALATION SCH (09:22)
--- NOTE | 2023-03-20 10:43 | P.PN ---
Subjective Progress Note Date: 03/20/23 HPI: Patient is a pleasant 57-year-old male with a past medical history that includes vocal cord cancer, diabetes, hypertension, osteoarthritis, sleep apnea, MRSA infection, thyroid disorder, and lymphedema who presented to the hospital with complaints of shortness of breath. Patient reports that he started developing severe shortness of breath yesterday, and reports that it increased in severity quite quickly. By the time he got to the emergency department, the patient was having difficulty speaking sentences and was hypoxic on room air. Breathing treatments and supplemental oxygen was started, which subjectively improve the patient's symptoms. Patient had an x-ray which was indicative of possible pulmonary vascular congestion, however a CT angiogram was completed which demonstrates moderate marked bibasilar consolidative/airspace densities consistent with pneumonia. Patient was subsequently admitted for further evaluation or possible CHF. Today patient is seen while sitting at the bedside. Patient reports that he feels fine. He is currently denying chest pain, shortness of breath, heart palpitations, dizziness, syncope. REVIEW OF LABS, ECG & MEDICAL DATA: LABS: White count 8.7, hemoglobin 18.7, sodium 137, potassium 4.1, BUN 29, creatinine 0.80, magnesium 1.9, troponin less than 0.012 EKG: Normal sinus rhythm with first-degree AV block IMAGING: Chest x-ray dated 03/17/2023 demonstrates correlation for CHF with pulmonary vascular congestion, there may be underlying trace pleural effusions with adjacent atelectasis and/or consolidation. CTA of the chest dated 03/17/2023 demonstrates no evidence of pulmonary embolism, marked acute cardiopulmonary disease with bibasilar infiltrates and pleural effusions as described above, which shows moderate to marked bibasilar consolidative/airspace densities consistent with pneumonia. There has been significant interval worsening compared to the prior study on which there was a smaller left lower lobe infiltrate. VITALS: Temp 97.5, pulse 82, respirations 16, blood pressure 108/67, O2 saturation 94% on 3 L 03/19 Patient is seen today in follow-up. He is currently on Lasix 40 mg IV every 12 hours. He states he has been urinating a lot and weight is down 2 kg. He is currently on antibiotics for pneumonia. He has home oxygen for nighttime only and has a workup in process for sleep study. Blood pressure 101/53, heart rate in the 60s and 70s, pulse ox 93% on 3 L. Repeat blood work reveals hemoglobin of 18.5. Potassium 4.0. BUN 29 creatinine 0.8. ProBNP 492. Patient states that he has been ambulating in his room without chest pain, lightheadedness or dizziness. Shortness of breath is improving. 03/20 Patient states that his breathing is improving but not quite back to baseline. He is currently on oxygen at 3 L nasal cannula with pulse ox 94%. Heart rate is in the 60s and 70s, blood pressure 106/59. Patient is maintained on IV Lasix 40 mg every 12 hours. Echocardiogram reveals normal LV systolic function. Mild pulmonary hypertension. EXAMINATION: GENERAL: Well-appearing, well-nourished and in no acute distress. NECK: Supple without JVD or thyromegaly. LUNGS: Diminished bilaterally bilaterally. Respiration equal and unlabored. No wheezes, rales or rhonchi. HEART: Regular rate and rhythm without murmurs, rubs or gallops. S1 and S2 heard. EXTREMITIES: Normal range of motion, no edema. No clubbing or cyanosis. Peripheral pulses intact and strong. IMPRESSION: 1. Bibasilar consolidative airspace densities consistent with pneumonia 2. Acute diastolic heart failure 3. Acute hypoxic respiratory failure Probable obstructive sleep apnea PLAN: Continue current cardiac medications Continue IV Lasix another 24 hours Monitor I&O, daily weights, electrolytes and renal function Pulmonary medicine on consult Further recommendations based on patient's clinical course. Nurse practitioner note has been reviewed, I agree with the documented findings and plan of care. Patient was seen and examined. Objective - Vital Signs Vital signs: Vital Signs Temp 97.9 F 03/20/23 07:56 Pulse 68 03/20/23 07:56 Resp 19 03/20/23 07:56 BP 106/59 03/20/23 07:56 Pulse Ox 94 L 03/20/23 07:56 FiO2 30 03/18/23 04:44 Intake & Output 03/19/23 03/20/23 03/20/23 18:59 06:59 18:59 Intake Total 780 240 Output Total 3650 3000 1150 Balance -8310 -3980 -1150 Weight 169 kg Intake: Oral 780 240 Output: Urine 3650 3000 1150 Other: Voiding Method Toilet Toilet Urinal Urinal # Voids 3 - Labs CBC & Chem 7: 03/19/23 07:48 03/19/23 07:48 Labs: Abnormal Lab Results - Last 24 Hours (Table) 03/19/23 03/19/23 03/19/23 Range/Units 07:48 07:48 16:48 RBC 6.36 H (4.30-5.90) m/uL Hgb 18.5 H (13.0-17.5) gm/dL Hct 60.7 H* (39.0-53.0) % MCHC 30.4 L (31.0-37.0) g/dL RDW 16.0 H (11.5-15.5) % Chloride 94 L (98-107) mmol/L Carbon Dioxide 33 H (22-30) mmol/L BUN 29 H (9-20) mg/dL Glucose 127 H (74-99) mg/dL POC Glucose (mg/dL) 119 H (70-110) mg/dL C-Reactive Protein 1.1 H (<1.0) mg/dL 03/19/23 03/20/23 Range/Units 20:54 05:19 RBC (4.30-5.90) m/uL Hgb (13.0-17.5) gm/dL Hct (39.0-53.0) % MCHC (31.0-37.0) g/dL RDW (11.5-15.5) % Chloride (98-107) mmol/L Carbon Dioxide (22-30) mmol/L BUN (9-20) mg/dL Glucose (74-99) mg/dL POC Glucose (mg/dL) 124 H 112 H (70-110) mg/dL C-Reactive Protein (<1.0) mg/dL
[2023-03-20 11:39] LABS: Glucose,Whole Blood 91 mg/dL (70-110)
--- NOTE | 2023-03-20 12:11 | P.DS ---
Providers Date of admission: 03/17/23 16:06 Expected date of discharge: 03/20/23 Attending physician: Tray Murrieta MD Consults: 03/17/23 16:06 Consult Physician Routine Consulting Provider: Olivier Ochoa Consult Reason/Comments: hypoxia Do you want consulting provider notified?: Yes Consult Physician Routine Consulting Provider: Nick Sin Consult Reason/Comments: chf Do you want consulting provider notified?: Yes Primary care physician: Tray Murrieta MD Hospital Course: Final Diagnoses: Acute on chronic hypoxic respiratory failure, wears 2-2.5 L nasal cannula during sleep Acute congestive heart failure, diastolic dysfunction Bilateral pleural effusions Obstructive sleep apnea, severe Pulmonary hypertension Polycythemia History of Dysphagia. Prior CT reported enlarged pretracheal lymph node possible underlying mass, in a patient with history of vocal cord CA 2018 status post radiation. 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 Bicarb 33, BUN 29, creatinine 0.81. Afebrile, normal WBC. Denies chest pain, palpitations or increased shortness of breath. Maintaining O2 sats in the 90s on 3 L nasal cannula. Bipap at night. Echo pending. Significant clinical improvement. Echo reported normal LV function, mild pulmonary hypertension. Maintaining O2 sats in the mid 90s on 3 L nasal cannula. Vital signs stable. Diuresing well on Lasix IV push with 24-hour I&O reflecting a negative fluid balance. Denies chest pain, palpitations or increasing shortness of breath. Cleared by cardiology for discharge, home dose of Lasix 40 daily recommended. Patient will be discharged home today in a stable condition with guarded prognosis pending pulmonary clearance. The impression and plan of care has been dictated as directed. : I performed a history and examination of this patient, discussed the same with the dictator. I agree with the dictator's note ,documented as a scribe. Any additional findings or plans will be noted. Patient Condition at Discharge: Stable Plan - Discharge Summary Discharge Rx Participant: No New Discharge Prescriptions: New Furosemide [Lasix] 40 mg PO DAILY #30 tablet Continue metFORMIN HCL [Glucophage] 1,000 mg PO DAILY allopurinoL [Zyloprim] 100 mg PO BID Mv-Min/Folic/K1/Lycopen/Lutein [Centrum Silver Men Tablet] 1 tab PO DAILY Aspirin EC [Ecotrin Low Dose] 81 mg PO DAILY #30 tablet. Melatonin 10 mg PO HS PRN PRN Reason: SLEEP Ascorbic Acid [Vitamin C] 1,000 mg PO DAILY hydroCHLOROthiazide [Hydrodiuril] 50 mg PO DAILY carvediloL [Coreg] 12.5 mg PO DAILY Fluticasone/Vilanterol [Breo Ellipta 200-25 Mcg Inhaler] 1 puff INHALATION RT-DAILY Cyclobenzaprine [Flexeril] 5 mg PO HS PRN PRN Reason: Muscle Pain Ibuprofen [Motrin] 600 mg PO Q8HR PRN PRN Reason: Pain lisinopriL [Zestril] 20 mg PO DAILY Levothyroxine Sodium [Synthroid] 125 mcg PO DAILY Albuterol Inhaler [Ventolin Hfa Inhaler] 2 puff INHALATION RT-QID PRN PRN Reason: Shortness Of Breath traZODone HCL [Desyrel] 50 mg PO HS PRN PRN Reason: sleep Discontinued amLODIPine BESYLATE/BENAZEPRIL [Lotrel 5-10 MG] 1 cap PO DAILY Furosemide [Lasix] 20 mg PO DAILY Discharge Medication List allopurinoL [Zyloprim] 100 mg PO BID 09/01/13 [History] metFORMIN HCL [Glucophage] 1,000 mg PO DAILY 09/01/13 [History] Mv-Min/Folic/K1/Lycopen/Lutein [Centrum Silver Men Tablet] 1 tab PO DAILY 03/07/20 [History] Aspirin EC [Ecotrin Low Dose] 81 mg PO DAILY #30 tablet. 03/10/20 [Rx] Ascorbic Acid [Vitamin C] 1,000 mg PO DAILY 05/05/22 [History] Levothyroxine Sodium [Synthroid] 125 mcg PO DAILY 05/05/22 [History] Melatonin 10 mg PO HS PRN 05/05/22 [History] carvediloL [Coreg] 12.5 mg PO DAILY 05/05/22 [History] hydroCHLOROthiazide [Hydrodiuril] 50 mg PO DAILY 05/05/22 [History] Albuterol Inhaler [Ventolin Hfa Inhaler] 2 puff INHALATION RT-QID PRN 11/14/22 [History] Fluticasone/Vilanterol [Breo Ellipta 200-25 Mcg Inhaler] 1 puff INHALATION RT- DAILY 11/14/22 [History] Cyclobenzaprine [Flexeril] 5 mg PO HS PRN 03/17/23 [History] Ibuprofen [Motrin] 600 mg PO Q8HR PRN 03/17/23 [History] lisinopriL [Zestril] 20 mg PO DAILY 03/17/23 [History] traZODone HCL [Desyrel] 50 mg PO HS PRN 03/17/23 [History] Furosemide [Lasix] 40 mg PO DAILY #30 tablet 03/20/23 [Rx] Follow up Appointment(s)/Referral(s): Tray Murrieta MD [Primary Care Provider] - 03/23/23 2:15 pm (Your appointment is in the [facility] office where you normally go. This is a previously scheduled appointment.) Olivier Ochoa MD [STAFF PHYSICIAN] - 1 Week (This is an appointment at [facility] for titration of CPAP for your Obstructive Sleep Apnea. Their phone# is: .) Patient Instructions/Handouts: Heart Failure (DC), Hypoxia (GEN)
[2023-03-20 12:49] VITALS: BP 132/75; PULSE 80; RESP 18
--- NOTE | 2023-03-20 16:13 | P.PN ---
Subjective Progress Note Date: 03/20/23 57-year-old male patient, morbidly obese with a body mass index of 57.4. He is known to have COPD and severe obstructive sleep apnea with an AHI of 43 along with chronic hypoxemic respiratory failure, presented to the hospital because of worsening shortness of breath and increased lower extremity edema. At the time of arrival, the patient was found to be quite short sentences. He was also hypoxic with low oxygen saturation at time of his admission. The patient was seen in the emergency Department. The patient was afebrile and hemodynamically stable. The patient was supplemented with oxygen. He was started on diuretics. A chest x-ray was done that showed CHF with pulmonary vessel congestion. There was also trace bilateral pleural effusion and based on that, the patient underwent a CT angiogram of the chest that showed a pulmonary embolism. It showed moderate areas of consolidation/airspace disease in lung bases along with pleural effusion and compressive atelectasis of the lung bases right more than left. No fever. No chills. No altered mentation. He is known to have chronic secondary polycythemia. Hemoglobin is at 80.7 with a hematocrit of 59.4. BUN is 28 with a creatinine of 0.8. His serum bicarb is at 35 consistent with chronic hypercapnic respiratory failure. Sodium is 137. Troponins are negative. LFTs are within normal limits. Reevaluated today on 03/19/23, patient is feeling better today, breathing easier, on 3 L nasal cannula, O2 sats is 93%. Chest x-ray on admission clearly showed bilateral pleural effusions consistent with mild congestive heart failu re, CT of the chest showed similar findings: No evidence of pulmonary embolism, questionabledisease at the bases, patient had a swallow evaluation and he had negative aspiration based on the study today clinically the presentation does not seem to be a presentation of pneumonia. Nonetheless the patient did receive diuretics he is on antibiotics, clinically feeling better. The patient is seen today 03/20/2023 in follow-up on the selective care unit. He is currently sitting up in a chair at the bedside. Awake and alert in no acute distress. Feeling quite a bit better today. He is maintaining O2 saturation in the 90s on 3 L/m per nasal cannula. He is being treated for diastolic congestive heart failure. Echocardiogram revealed preserved left ventricular systolic function with ejection fraction 50-55%. Mild pulmonary hypertension. Glucose 112. He is continued on DuoNeb inhalations, Symbicort, doxycycline. Remains on IV diuretics. Currently in a -5.6 L balance. Objective - Vital Signs Vital signs: Vital Signs Temp 97.9 F 03/20/23 07:56 Pulse 80 03/20/23 12:23 Resp 18 03/20/23 12:23 BP 132/75 03/20/23 12:23 Pulse Ox 90 L 03/20/23 12:23 FiO2 30 03/18/23 04:44 Intake & Output 03/19/23 03/20/23 03/20/23 18:59 06:59 18:59 Intake Total 780 240 Output Total 3650 3000 1150 Balance -2870 -2760 -1150 Weight 169 kg 165.1 kg Intake: Oral 780 240 Output: Urine 3650 3000 1150 Other: Voiding Method Toilet Toilet Toilet Urinal Urinal Urinal # Voids 3 - Exam GENERAL EXAM: Alert, isn't, morbidly obese 57-year-old male, on 3 L nasal cannula, comfortable in no apparent distress. HEAD: Normocephalic. EYES: Normal reaction of pupils, equal size. NOSE: Clear with pink turbinates. THROAT: No erythema or exudates. NECK: No masses, no JVD. CHEST: No chest wall deformity. LUNGS: Equal air entry with basilar crackles. Diminished. CVS: S1 and S2 normal with no audible murmur, regular rhythm. ABDOMEN: No hepatosplenomegaly, normal bowel sounds, no guarding or rigidity. SPINE: No scoliosis or deformity SKIN: No rashes CENTRAL NERVOUS SYSTEM: No focal deficits, tone is normal in all 4 extremities. EXTREMITIES: There is 1-2+ peripheral edema. No clubbing, no cyanosis. Peripheral pulses are intact. - Labs CBC & Chem 7: 03/19/23 07:48 03/19/23 07:48 Labs: Abnormal Lab Results - Last 24 Hours (Table) 03/19/23 03/19/23 03/20/23 Range/Units 16:48 20:54 05:19 POC Glucose (mg/dL) 119 H 124 H 112 H (70-110) mg/dL Assessment and Plan Assessment: Acute on chronic hypoxic respiratory failure very to an acute exacerbation of diastolic congestive heart failure Fluid overload and right sided congestive heart failure/cor pulmonale, and I suspect significant component of pulmonary hypertension Obesity hypoventilation syndrome Morbid obesity Obstructive sleep apnea syndrome History of pacemaker implantation Type 2 diabetes without complications Chronic cor pulmonale with edema and lymphedema Hypothyroidism History of gout Ex-smoker History of laryngeal cancer treated with radiation back in 2018 Plan: The patient was seen and evaluated Echocardiogram, labs and medications reviewed Currently stable and on 3 L nasal cannula Cleared for discharge from the pulmonary standpoint Continue his home pulmonary medications Continue diuretics To follow-up in the sleep Center as scheduled I have personally seen and examined the patient, performed the documentation and the assessment and plan as written. Number of minutes spent on the visit: 10.
== END 2023-03-20 12:54 | disposition home or self-care (01) | DRG 291 ==
LOC: EC 12:41 → 3SCARD 16:06
PROVIDERS: ADMIT Family Medicine; ATTEND Family Medicine
DX: I11.0 Hypertensive heart disease with heart failure (principal); I50.33 Acute on chronic diastolic (congestive) heart failure; J96.21 Acute and chronic respiratory failure with hypoxia; J18.9 Pneumonia, unspecified organism; J96.22 Acute and chronic respiratory failure with hypercapnia; E66.2 Morbid (severe) obesity with alveolar hypoventilation; Z68.43 Body mass index [BMI] 50.0-59.9, adult; J98.11 Atelectasis; J44.0 Chronic obstructive pulmonary disease with (acute) lower respiratory infection; I27.29 Other secondary pulmonary hypertension; I27.81 Cor pulmonale (chronic); E11.9 Type 2 diabetes mellitus without complications; Z11.52 Encounter for screening for COVID-19; Z28.310 Unvaccinated for COVID-19; D75.1 Secondary polycythemia; I44.1 Atrioventricular block, second degree; E03.9 Hypothyroidism, unspecified; G89.29 Other chronic pain; M54.9 Dorsalgia, unspecified; F41.9 Anxiety disorder, unspecified; I89.0 Lymphedema, not elsewhere classified; M19.90 Unspecified osteoarthritis, unspecified site; M10.9 Gout, unspecified; R13.10 Dysphagia, unspecified; F10.11 Alcohol abuse, in remission; Z79.82 Long term (current) use of aspirin; Z79.51 Long term (current) use of inhaled steroids; Z79.890 Hormone replacement therapy; Z79.84 Long term (current) use of oral hypoglycemic drugs; Z79.899 Other long term (current) drug therapy; Z95.0 Presence of cardiac pacemaker; Z92.3 Personal history of irradiation; Z87.891 Personal history of nicotine dependence; Z86.14 Personal history of Methicillin resistant Staphylococcus aureus infection; Z85.21 Personal history of malignant neoplasm of larynx; Z71.3 Dietary counseling and surveillance; Z88.0 Allergy status to penicillin
CPT/HCPCS: 36415; 71045; 71275; 74230; 80048; 80053; 83605; 83735; 83880; 84100; 84145; 84484; 85025; 85027; 85610; 85730; 86140; 87636; 93005; 93306; 94640; 94660; 94760; 96361; 96374; 96375; 99291

== ENCOUNTER 2023-05-08 19:33 | Outpatient (CLI) | payer BC, OTHER ==
--- NOTE | 2023-05-09 12:26 | P.PCN ---
Description of Procedure: CLINICAL: Titration with positive air pressure has been done for correction of respiratory abnormalities during sleep. DESCRIPTION OF PROCEDURE: The standard montage for clinical polysomnography included the electroencephalogram, the electrocardiogram, the mentalis surface electromyography and Lead II cardiography. The respiratory battery consisted of measurements of nasal /buccal air flow, pressure transducer measurements from the nose, thoracic and /or abdominal effort and intercostal surface electromyography. Video monitoring has been done to check for any parasomnia events. Nocturnal oxyhemoglobin saturations were obtained by finger oximetry. Step-mccormack titration with positive airway pressure was utilized to control respiratory events. Raw data of sleep recording has been reviewed and is adequate. RESULTS: Sleep efficiency was extremely short 60.8 %. Latency to sleep onset was normal 13.0 minutes.]. Sleep architecture showed stage N1 was slightly increased to 10.8 %, Delta sleep was absent 0 %, REM sleep was slightly decreased to 16.2 %. Heart rate was minimum 61 BPM, maximum 71 BPM, average 65 BPM. EMG showed 67.7 periodic limb movements per hour with 0.5 micriarousals per hour. BPAP titrated up to 22/18 cm H2O. oxygen titrated from 2 L/m up to 5 L/m. The best results were at the pressure 20/16 centimeters of water with 5 L/m oxygen supplement. Apnea hypopnea index reduced to 6.2 with average oxygen level 90%. With that pressure patient was in rem sleep for 9.7 minutes. During the test patient was on a recliner following his request. IMPRESSION: 1. Obstructive sleep apnea hypopnea syndrome improved on high level of BiPAP treatment with 5 L oxygen supplement, while patient was on the recliner. 2. Severe periodic limb movements have been documented, but with very few micro-arousals. Please see other impressions from consultation. PLAN: 1. The patient will have treatment with positive air pressure equipment with the level of pressure AutoBPAP with maximal inspiratory pressure 22, minimal expiratory pressure 7, pressure-support 4 cm H2O with 5 L/m oxygen supplement and should use it every night for the whole night. 2. Watching and losing weight. 3. Sleep hygiene with regular time in bed for at least 8 hours. 4. No driving if feeling any sleepiness. 5. I will see the patient for follow up visit to explain the results of the test, recommendations, check compliance with treatment and make any necessary adjustment related to mask fitting, pressure and humidification. 6. Please check iron profile including ferritin level. Low level of iron may increase risk for periodic limb movements Thank you very much for allowing me to participate in the management of your patient. Sincerely, Stephen Portillo MD, PhD, FAASM Diplomat of [employer] Sleep Medicine Board of [employer] [facility] [place]
== END 2023-05-09 04:30 | disposition home or self-care (01) ==
LOC: 3 N SLEEP 19:33
PROVIDERS: ATTEND Internal Medicine
DX: G47.33 Obstructive sleep apnea (adult) (pediatric) (principal); G47.61 Periodic limb movement disorder; Z88.0 Allergy status to penicillin; Z79.82 Long term (current) use of aspirin; Z87.891 Personal history of nicotine dependence
CPT/HCPCS: 95811

== ENCOUNTER → 2024-02-28 | Outpatient (CLI) | payer OTHER ==
--- NOTE | 2024-02-28 16:13 | XR ---
EXAMINATION TYPE: XR Hip Complete LT DATE OF EXAM: 02/28/2024 COMPARISON: None HISTORY: Pain from fall TECHNIQUE: 2 view left hip FINDINGS: Femoral head articulates with the acetabulum. Joint spaces preserved. No acute fracture or dislocation evident. Symphysis pubis appears unremarkable. Follow-up be performed as clinically indic ated IMPRESSION: 1. No acute osseous abnormality radiographically apparent [facility], Workstation: [facility], 02/28/2024 4:11 PM
--- NOTE | 2024-02-28 16:15 | XR ---
EXAMINATION TYPE: XR knee complete LT DATE OF EXAM: 02/28/2024 COMPARISON: None HISTORY: Pain from fall TECHNIQUE: 3 view left FINDINGS: Joint spaces are preserved. No acute fracture or dislocation evident. Small joint effusion is not excluded. Follow-up exam performed 7-10 days from acute trauma for continued pain IMPRESSION: 1. No acute osseous abnormality of the left knee [facility], Workstation: [facility], 02/28/2024 4:12 PM
--- NOTE | 2024-02-28 16:23 | XR ---
EXAMINATION TYPE: XR ankle complete LT DATE OF EXAM: 02/28/2024 COMPARISON: None HISTORY: Fall, pain TECHNIQUE: 3 view left ankle FINDINGS: No acute fractures or dislocations evident. Soft tissues appear normal. Ankle mortise is in tact. Calcaneal heel spurs are present. Follow-up exam can be performed 7-10 days from acute trauma for continued pain IMPRESSION: 1. No acute osseous abnormality left ankle. 2. Calcaneal heel spurs [facility], Workstation: [facility], 02/28/2024 4:21 PM
--- NOTE | 2024-02-28 16:24 | XR ---
EXAMINATION TYPE: XR elbow complete LT DATE OF EXAM: 02/28/2024 COMPARISON: None HISTORY: Fall, pain TECHNIQUE: 3 view left elbow FINDINGS: Radius aligns normally with the humerus. No acute fractures or dislocations evident. Some s purring is noted medial distal humerus anterior fat pad is normal. No elevation posterior fat pad is evident which is normal. Follow-up exam can be performed 7-10 days from acute trauma for continued pain. IMPRESSION: 1. No acute osseous abnormalities left elbow [facility], Workstation: [facility], 02/28/2024 4:22 PM
--- NOTE | 2024-02-28 16:26 | XR ---
EXAMINATION TYPE: XR foot complete LT DATE OF EXAM: 02/28/2024 COMPARISON: None HISTORY: Fall, pain TECHNIQUE: 3 view left foot FINDINGS: No acute fractures or dislocations evident. There is there is deformity of the distal third fourth and fifth digits. Hammertoes are present. Alignment is otherwise unremarkable. Plantar and Ac hilles tendon calcaneal heel spurs are present. Soft tissues appear within normal limits. Follow up exams can be performed 7-10 days from acute trauma for continued pain IMPRESSION: 1. No acute osseous abnormality left foot [facility], Workstation: [facility], 02/28/2024 4:24 PM
--- NOTE | 2024-02-28 16:38 | XR ---
EXAMINATION TYPE: XR shoulder complete LT DATE OF EXAM: 02/28/2024 COMPARISON: NONE HISTORY: Pain TECHNIQUE: Shoulder examined in 3 projections. FINDINGS: The humeral head articulates with the glenoid. Acromioclavicular junction appears to very distance various images. Greatest separation 1.8 cm with a dditional images appearing to be normal. No persistent depression of the acromion is present. The int ernal rotational view may has some depression of the acromion in relation to the distal clavicle. Fin dings appear suggestive for a acromioclavicular joint separation. Correlate patient's symptoms. If ad ditional imaging would be of benefit, without and with weight images could be obtained. No acute fractures are identified. Pacemaker overlies left chest. A follow up study can be performed 7-10 days from acute trauma for continued pain. MRI can be perfor med if soft tissue evaluation would be of benefit. IMPRESSION: 1. Clinical correlation recommended for acromioclavicular joint separation. 2. Acute fractures identified. [facility], Workstation: [facility], 02/28/2024 4:35 PM
== END | disposition home or self-care (01) ==
LOC: RADXRMAIN 15:17
PROVIDERS: ATTEND Emergency Medicine
CPT/HCPCS: 73502

== ENCOUNTER → 2024-02-29 | Outpatient (CLI) | payer OTHER ==
--- NOTE | 2024-02-29 15:54 | CT ---
EXAMINATION TYPE: CT cervical spine wo con DATE OF EXAM: 02/29/2024 3:43 PM COMPARISON: 11/15/2019 CLINICAL INDICATION: Male, 58 years old with history of S13.4XXD SPRAIN OF LIGAMENTS OF CERVICAL SPIN E, LUNA; neck pain from fall at work. TECHNIQUE: Axial CT images from the skull base to the inferior aspect of T2 we obtained without intra venous contrast. Coronal and sagittal reformatted images were also reviewed. Contrast used: mL of , (if blank None) Oral contrast used: (if blank None) CT DLP: 909.5 mGycm, Automated exposure control for dose reduction was used. FINDINGS: Fracture: None. Osseous structures: Multilevel degenerative disc disease changes with endplate spurring and disc oste ophyte complex's. Vertebral alignment: Alignment within normal limits. Spinal canal/Neural Foramina: No evidence of significant spinal canal narrowing. No evidence for sign ificant neural foraminal stenosis. Neck soft tissues: Prevertebral soft tissues are within normal limits. Other: The airway is patent. The lung apices are clear. IMPRESSION: 1. No evidence of cervical spine fracture. 2. Mild multilevel degenerative disc disease. [facility], , 02/29/2024 3:52 PM
== END | disposition home or self-care (01) ==
LOC: RADCTMAIN 15:18
PROVIDERS: ATTEND Emergency Medicine
DX: S13.4XXD Sprain of ligaments of cervical spine, subsequent encounter (principal); M50.30 Other cervical disc degeneration, unspecified cervical region
CPT/HCPCS: 72125

== ENCOUNTER 2024-03-05 10:36 | Emergency (ER) | payer BC, OTHER ==
[2024-03-05 10:54] VITALS: RESP 18
--- NOTE | 2024-03-05 11:14 | ED ---
Lower Extremity Injury HPI - General Chief Complaint: Extremity Injury, Lower Stated Complaint: Right leg wound Time Seen by Provider: 03/05/24 10:50 Source: patient, RN notes reviewed Mode of arrival: wheelchair Limitations: no limitations - History of Present Illness Initial Comments: This is a 58-year-old male with a history of type 2 diabetes, peripheral vascular disease and venous insufficiency presenting to the emergency department for chief complaint of right lower extremity/foot injury. Patient states that approximately 20 to 30 minutes before arrival to the emergency department he accidentally kicked a rolling table which resulted in bleeding. Patient denies blood thinner use. Denies paresthesias or pain to the foot. He denies calf p ain, calf swelling, shortness of breath, heart palpitations or difficulty breathing. Unaware when his last tetanus vaccination was. - Related Data Home Medications Medication Instructions Recorded Confirmed allopurinoL [Zyloprim] 100 mg PO BID 09/01/13 03/17/23 metFORMIN HCL [Glucophage] 1,000 mg PO DAILY 09/01/13 03/17/23 Mv-Min/Folic/K1/Lycopen/Lutein 1 tab PO DAILY 03/07/20 03/17/23 [Centrum Silver Men Tablet] Ascorbic Acid [Vitamin C] 1,000 mg PO DAILY 05/05/22 03/17/23 Levothyroxine Sodium [Synthroid] 125 mcg PO DAILY 05/05/22 03/17/23 Melatonin 10 mg PO HS PRN 05/05/22 03/17/23 carvediloL [Coreg] 12.5 mg PO DAILY 05/05/22 03/17/23 hydroCHLOROthiazide [Hydrodiuril] 50 mg PO DAILY 05/05/22 03/17/23 Albuterol Inhaler [Ventolin Hfa 2 puff INHALATION RT-QID PRN 11/14/22 03/17/23 Inhaler] Fluticasone/Vilanterol [Breo 1 puff INHALATION RT-DAILY 11/14/22 03/17/23 Ellipta 200-25 Mcg Inhaler] Cyclobenzaprine [Flexeril] 5 mg PO HS PRN 03/17/23 03/17/23 Ibuprofen [Motrin] 600 mg PO Q8HR PRN 03/17/23 03/17/23 lisinopriL [Zestril] 20 mg PO DAILY 03/17/23 03/17/23 traZODone HCL [Desyrel] 50 mg PO HS PRN 03/17/23 03/17/23 Previous Rx's Medication Instructions Recorded Aspirin EC [Ecotrin Low Dose] 81 mg PO DAILY #30 tablet. 03/10/20 Furosemide [Lasix] 40 mg PO DAILY #30 tablet 03/20/23 clindamycin HCL 300 mg PO QID #40 cap 03/05/24 Allergies Allergy/AdvReac Type Severity Reaction Status Date / Time Penicillins Allergy Anaphylaxis Verified 03/05/24 10:49 Review of Systems ROS Statement: Those systems with pertinent positive or pertinent negative responses have been documented in the HPI. ROS Other: All systems not noted in ROS Statement are negative. Past Medical History Past Medical History: Cancer, Diabetes Mellitus, Hypertension, Musculoskeletal Disorder, Osteoarthritis (OA), Sleep Apnea/CPAP/BIPAP, Thyroid Disorder, Vascular Disorder Additional Past Medical History / Comment(s): Vocal cord cancer dx. 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, elevated uric acid level, occasional back pain, arthritis bilateral hands/L shoulder, L/R leg lymphedema but worse in R leg History of Any Multi-Drug Resistant Organisms: MRSA Date of last positivie culture/infection: 06/22/14 MDRO Source:: RT LEG Past Surgical History: Cholecystectomy, Pacemaker Additional Past Surgical History / Comment(s): Vocal cord bx Past Anesthesia/Blood Transfusion Reactions: No Reported Reaction Type of Cardiac Device: Permanent Pacemaker Device Placement Date:: 03/24/20 Past Psychological History: No Psychological Hx Reported Smoking Status: Former smoker Past Alcohol Use History: None Reported, Occasional Past Drug Use History: None Reported - Past Family History Mother Family Medical History: No Reported History Additional Family Medical History / Comment(s): Mother is healthy and is 76yrs old. Brother(s) Additional Family Medical History / Comment(s): Patient is a total of 5 siblings and one brother from liver cirrhosis from alcoholism. Patient has one son with no major medical problems. Father Sister(s) Family Medical History: Cancer Additional Family Medical History / Comment(s): Father at 57yrs from lung cancer. He was a smoker. General Exam Limitations: no limitations General appearance: alert, in no apparent distress, obese ENT exam: Present: normal exam, mucous membranes moist Neck exam: Present: normal inspection. Absent: tenderness, meningismus, lymphadenopathy Respiratory exam: Present: normal lung sounds bilaterally. Absent: respiratory distress, wheezes, rales, rhonchi, stridor Cardiovascular Exam: Present: regular rate, normal rhythm, normal heart sounds. Absent: systolic murmur, diastolic murmur, rubs, gallop, clicks GI/Abdominal exam: Present: soft, normal bowel sounds. Absent: distended, tenderness, guarding, rebound, rigid Right Foot/Toe exam: Present: swelling, laceration (4th dorsal digit) Neurovascular tendon exam: Present: no vascular compromise. Absent: pulse deficit Gait: observed and normal Back exam: Present: normal inspection Skin exam: Present: warm, dry, intact, normal color. Absent: rash Course Vital Signs 03/05/24 03/05/24 10:50 12:24 Temperature 97.6 F 97.9 F Pulse Rate 66 72 Respiratory 18 18 Rate Blood Pressure 139/81 135/77 O2 Sat by Pulse 96 98 Oximetry Procedures - Laceration Laceration #1 Consent Obtained: verbal consent Indication: laceration Site: foot Size (cm): 3 Description: linear Depth: simple, single layer Anesthetic Used: lidocaine 1% Anesthesia Technique: local infiltration Amount (mls): 3 Pre-repair: wound explored Type of Sutures: nylon Size of Sutures: 4-0 Number of Sutures: 3 Technique: simple, interrupted Patient Tolerated Procedure: well, no complications Medical Decision Making - Medical Decision Making Was pt. sent in by a medical professional or institution (, PA, FACE MAN, urgent care, hospital, or retirement...) When possible be specific @ -No Did you speak to anyone other than the patient for history (EMS, parent, family, police, friend...)? What history was obtained from this source @ -No Did you review nursing and triage notes (agree or disagree)? Why? @ -I reviewed and agree with nursing and triage notes Were old charts reviewed (outside hosp., previous admission, EMS record, old EKG, old radiological studies, urgent care reports/EKG's, retirement records)? Report findings @ -No old charts were reviewed Differential Diagnosis (chest pain, altered mental status, abdominal pain women, abdominal pain men, vaginal bleeding, weakness, fever, dyspnea, syncope, headache, dizziness, GI bleed, back pain, seizure, CVA, palpatations, mental health, musculoskeletal)? @ -Laceration, skin avulsion, fracture, this list is not all inclusive EKG interpreted by me (3pts min.). @ -none X-rays interpreted by me (1pt min.). @ -None done CT interpreted by me (1pt min.). @ -None done U/S interpreted by me (1pt. min.). @ -None done What testing was considered but not performed or refused? (CT, X-rays, U/S, labs)? Why? @ -None What meds were considered but not given or refused? Why? @ -None Did you discuss the management of the patient with other professionals (professionals i.e. , PA, FACE MAN, lab, RT, psych nurse, social sciences lecturer, watch electrician, teacher, real estate officer, correctional counselor/case manager)? Give summary @ -No Was smoking cessation discussed for >3mins.? @ -No Was critical care preformed (if so, how long)? @ -No Were there social determinants of health that impacted care today? How? (Homelessness, low income, unemployed, alcoholism, drug addiction, transportation, low edu. Level, literacy, decrease access to med. care, longterm, rehab)? @ -No Was there de-escalation of care discussed even if they declined (Discuss DNR or withdrawal of care, Hospice)? DNR status @ -No What co-morbidities impacted this encounter? (DM, HTN, Smoking, COPD, CAD, Cancer, CVA, ARF, Chemo, Hep., AIDS, mental health diagnosis, sleep apnea, morbid obesity)? @ -None Was patient admitted / discharged? Hospital course, mention meds given and route, prescriptions, significant lab abnormalities, going to OR and other pertinent info. @ -Discharge. 58-year-old male with injury to the right foot. On my evaluation the patient is noted to have mild bleeding of the right foot and dryness with lower extremity bilateral edema and dusky appearance. Patient's pulses intact. On examination patient noted to have laceration to the dorsal fourth digit that is mildly bleeding. Patient sensation is intact. Area was cleansed with sterile water and anesthetized with lidocaine locally. 3 simple interrupted sutures were placed and bacitracin was applied over top of the area. Patient is sent an antibiotic to cover for possible infection that is concerning as he does have diabetes. All questions have been answered at bedside answered return parameters discussed with the patient he is verbalized understanding. Recommend that patient change dressing at least 2 times a day over the next 2 days and continue to keep area clean and dry as well. Discussed with Dr. Cabrales Undiagnosed new problem with uncertain prognosis? @ -No Drug Therapy requiring intensive monitoring for toxicity (Heparin, Nitro, Insulin, Cardizem)? @ -No Were any procedures done? @ -Wound irrigation, laceration repair with sutures, see procedure note above for further details Diagnosis/symptom? @ -Laceration Acute, or Chronic, or Acute on Chronic? @ -Acute Uncomplicated (without systemic symptoms) or Complicated (systemic symptoms)? @ -Uncomplicated Side effects of treatment? @ -No Exacerbation, Progression, or Severe Exacerbation? @ -No Poses a threat to life or bodily function? How? (Chest pain, [place], [place], pneumonia, PE, COPD, DKA, ARF, appy, cholecystitis, CVA, Diverticulitis, Homicidal, Suicidal, threat to staff... and all critical care pts) @ -No Disposition Clinical Impression: Laceration Disposition: HOME SELF-CARE Condition: Good Instructions (If sedation given, give patient instructions): Laceration (ED) Additional Instructions: Please return to the Emergency Department if symptoms worsen or any other concerns. complete full course of antibiotics as prescribed. Continue to keep area clean and dry. Recommend that you return Emergency Department with your primary care provider in proximately 7 days for suture removal. Prescriptions: clindamycin HCL 300 mg PO QID #40 cap Is patient prescribed a controlled substance at d/c from ED?: No Referrals: Tray Murrieta MD [Primary Care Provider] - 1-2 days Time of Disposition: 12:15
[2024-03-05] MEDS: DIPH,PERTUS(ACELL)TETVAC-LF 0.5 ML VIAL IM ONE (11:21)
[2024-03-05] MEDS: LIDOCAINE 1% INJ 10MG/ML (20 ML MDV) SQ ONE (11:44)
[2024-03-05] MEDS: BACITRACIN OINT 1 EACH PACKET TOPICAL ONE (12:03)
[2024-03-05 12:26] VITALS: BP 135/77; PULSE 72; TEMP 97.9
== END 2024-03-05 12:27 | disposition home or self-care (01) ==
LOC: EC 10:36
DX: S81.811A Laceration without foreign body, right lower leg, initial encounter (principal); Z88.0 Allergy status to penicillin; Z87.891 Personal history of nicotine dependence; Z95.0 Presence of cardiac pacemaker; Z23 Encounter for immunization; W22.03XA Walked into furniture, initial encounter
CPT/HCPCS: 90715; 99283; 90471; 12002; J2003